=== PATIENT | female | born 1970 | race Caucasian/White ===

== ENCOUNTER → 2022-10-27 16:20 | Outpatient (CLI) | payer SELFPAY ==
--- NOTE | 2022-10-27 16:27 | XR_ITS ---
PROCEDURE INFORMATION: Exam: XR Left Foot Exam date and time: 10/27/2022 4:29 PM Age: 52 years old Clinical indication: Injury or trauma; Blunt trauma; Left; Injury date: 5 days ago; Injury details: Fall, pain and bruising top of lt foot; Additional info: L foot pain TECHNIQUE: Imaging protocol: Radiologic exam of the Left foot. Views: 3 or more views. COMPARISON: No relevant prior studies available. FINDINGS: Bones/joints: Bones appear intact and normally aligned with normal mineralization. Small plantar and Achilles calcaneal spurs. No acute fracture or dislocation. There are no lytic skeletal lesions seen. No significant arthritic deformities. Soft tissues: Slight soft tissue swelling.No radiopaque foreign bodies. No soft tissue emphysema. IMPRESSION: No acute fracture or dislocation.
== END ==
PROVIDERS: PCP Physician Assistant; Visit Provider Physician Assistant
DX: M79.672 Pain in left foot (principal)
CPT/HCPCS: 73630

== ENCOUNTER 2023-01-28 12:19 | Emergency (ER) | payer OTHER, SELFPAY ==
[2023-01-28 12:20] VITALS: BP 156/97; PULSE 78; RESP 18; TEMP 36.8; O2SAT 98; BMI 31.0
--- NOTE | 2023-01-28 12:32 | HMH.EDGENADL ---
Discharge Plan Disposition Patient Disposition: Home, Self-Care Prescriptions Prescriptions: No Action gabapentin 300 mg capsule 300 mg PO HS Qty: 30 2RF bupropion HCl 200 mg tablet sustained-release 12 hr PO Label Comments: TAKE 1 TABLET BY MOUTH ONCE DAILY IN THE MORNING lamotrigine 150 mg tablet 300 mg PO DAILY Label Comments: TAKE 2 TABLETS BY MOUTH ONCE DAILY Zyrtec 10 mg capsule 10 mg PO DAILY PRN aspirin 81 mg tablet,delayed release (DR/EC) 81 mg PO DAILY Nurtec ODT 75 mg tablet,disintegrating 75 mg PO Q OTHER DAY lorazepam 2 mg tablet 2 mg PO Label Comments: TAKE 1 & 1/2 (ONE & ONE-HALF) TABLETS BY MOUTH ONCE DAILY AT NIGHT AT BEDTIME naproxen 500 mg tablet 500 mg PO BID Qty: 60 2RF tramadol 50 mg tablet 50 mg PO BID PRN (Reason: pain) Qty: 20 0RF tizanidine [Zanaflex] 4 mg tablet 4 mg PO Q8H PRN (Reason: muscle spasticity) Qty: 90 0RF citalopram 40 mg tablet 40 mg PO DAILY Qty: 90 3RF Referrals Follow up/Referrals: Kylah Calzada PA [Primary Care Provider] - See instructions Activity Restrictions/Add. Instructions Additional Instructions/Restrictions: Please stop your NSAID. You may take Pepcid at home as discussed and additional antacids including Maalox or Tums. I suggest that you follow-up with a GI doctor for possible endoscopy to evaluate for peptic ulcers if your symptoms do not resolve. Please return to the emergency department worsening abdominal pain. Clinical Impressions Clinical Impression: Abdominal pain, epigastric, Gastroesophageal reflux disease Instructions Patient Instructions: DI for Acute Abdominal Pain Discharge ED Provider: Hiram Baugh [facility] Adult HPI General Chief complaint: Abdominal Pain Stated complaint: Abd pain nausea Time Seen by Provider: 01/28/23 12:32 History of Present Illness HPI narrative: Patient is a 53-year-old female presenting epigastric abdominal pain for the past few days. Patient states she has a history remotely of chronic alcoholism but has been sober for 9 years and has not had any recent drinks. No history of pancreatitis that she is aware of she still has her gallbladder. States her symptoms have been postprandial in nature making have decreased p.o. intake over the last few days. She currently has none of the squeezing type sensation that she has been feeling over the last few days. Denies any melena or hematochezia or hemoptysis. Denies any history of GERD or peptic ulcer disease. She did state that she has been taking an NSAID every day for the past several months due to chronic back pain. She currently feels nausea no other symptoms. Related Data Home Medications Medication Instructions Recorded Confirmed aspirin 81 mg tablet,delayed 81 mg PO DAILY 12/02/22 01/17/23 release bupropion HCl 200 mg tablet,12 hr ea PO 12/02/22 01/17/23 sustained-release cetirizine 10 mg capsule (Zyrtec) 10 mg PO DAILY PRN 12/02/22 01/17/23 lamotrigine 150 mg tablet 300 mg PO DAILY 12/02/22 01/17/23 lorazepam 2 mg tablet 2 mg PO 12/02/22 01/17/23 rimegepant 75 mg disintegrating 75 mg PO Q OTHER DAY 12/02/22 01/17/23 tablet (Nurtec ODT) Previous Rx's Medication Instructions Recorded naproxen 500 mg tablet 500 mg PO BID #60 tabs 12/02/22 tramadol 50 mg tablet 50 mg PO BID PRN pain #20 tabs 12/07/22 tizanidine 4 mg tablet (Zanaflex) 4 mg PO Q8H PRN muscle spasticity 12/13/22 #90 tabs gabapentin 300 mg capsule 300 mg PO HS #30 caps 12/20/22 citalopram 40 mg tablet 40 mg PO DAILY #90 tabs 12/23/22 Allergies Allergy/AdvReac Type Severity Reaction Status Date / Time No Known Allergies Allergy Verified 01/17/23 10:37 [facility] Disclaimer: The information contained in this section may have been updated after the patient was seen, as this information can be updated by other users. Medical History (Reviewed 01/17/23 @ 10:58 by Howard
[2023-01-28 12:54] LABS: Basophils # 0.1 K/mm3 (0-0.2); Eosinophils # 0.2 K/mm3 (0.0-0.4); Eosinophils % 4.2 % (0.1-12.0); Hematocrit 42.5 % (37.0-47.0); Hemoglobin 14.1 g/dL (12.2-16.2); Lymphocytes # 1.9 K/mm3 (0.7-4.5); Lymphocytes % 34.1 % (10-50); Mean Corpuscular HGB Conc 33.3 g/dL (31.8-35.4); Mean Corpuscular Hemoglobin 29.8 pg (27.0-31.2); Mean Corpuscular Volume 89.5 fl (81-99); Mean Platelet Volume 7.3 fl (7.4-10.4); Monocytes # 0.3 K/mm3 (0.1-1.0); Monocytes % 6.1 % (1.7-9.3); Neutrophils % 54.7 % (37.0-80.0); Platelet Count 273 K/mm3 (142-424); Red Blood Count 4.74 M/mm3 (4.20-5.40); White Blood Count 5.6 K/mm3 (4.8-10.8)
[2023-01-28 12:58] LABS: Chloride 103 mmol/L (98-107); Sodium 135 mmol/L (136-145)
[2023-01-28 12:59] LABS: Potassium 4.3 mmoL/L (3.5-5.1)
[2023-01-28 13:01] LABS: Alanine Aminotransferase 21 U/L (12-78); Alkaline Phosphatase 84 U/L (38-126); Anion Gap 6.3 mEq/L (5-15); Aspartate Amino Transferase 33 U/L (14-36); Bilirubin,Total 0.5 mg/dl (0.2-1.3); Blood Urea Nitrogen 6 mg/dl (7-17); Calcium 8.7 mg/dl (8.4-10.2); Carbon Dioxide 30 mmol/L (22.0-30.0); Creatinine Clearance Estimated 101 mL/min (50-200); Estimated Glomerular Filt Rate 65 ml/min (>60); GFR (African American) 79 ML/MIN (>60); Glucose 86 mg/dl (74-100); Lipase 81 U/L (23-300)
[2023-01-28 13:02] LABS: Albumin Level 4.3 g/dl (3.5-5.0); Albumin/Globulin Ratio 1.7 (1.1-1.8); Globulin 2.5 g/dL (1.3-3.2); Total Protein,Serum 6.8 g/dl (6.3-8.2)
[2023-01-28 13:34] VITALS: BP 126/89; PULSE 79; RESP 17; TEMP 36.8; O2SAT 96
== END 2023-01-28 13:45 | disposition home or self-care (01) ==
PROVIDERS: Emergency Provider Student in an Organized Health Care Education/Training Program; PCP Physician Assistant
DX: R10.13 Epigastric pain (principal); K21.9 Gastro-esophageal reflux disease without esophagitis; F41.9 Anxiety disorder, unspecified; F31.9 Bipolar disorder, unspecified; G43.909 Migraine, unspecified, not intractable, without status migrainosus; Z90.49 Acquired absence of other specified parts of digestive tract; Z90.710 Acquired absence of both cervix and uterus
CPT/HCPCS: 80053; 83690; 85025; 99284

== ENCOUNTER → 2023-02-01 09:43 | Outpatient (CLI) | payer OTHER, SELFPAY ==
--- NOTE | 2023-02-01 09:44 | MM_ITS ---
PROCEDURE INFORMATION: Exam: Bilateral Screening 3D Mammography Exam date and time: 02/01/2023 9:38 AM Age: 53 years old Clinical indication: Screening examination TECHNIQUE: Imaging protocol: Bilateral Screening tomosynthesis and 2D mammography including computer-aided detection (CAD) when performed. COMPARISON: DIGITAL MAMMOGRAM SCREEN, 3D (JORY) 07/31/2021 2:44 PM FINDINGS: MAMMOGRAPHY: Breast composition: The breasts are extremely dense, which lowers the sensitivity of mammography. Mass: None. Architectural distortion: None. Calcifications: No suspicious calcifications. Asymmetric density: None. Skin thickening: None. Axillary adenopathy: None. IMPRESSION: No mammographic evidence of malignancy. Annual screening is recommended unless otherwise clinically indicated. ASSESSMENT: BI-RADS Category 1: Negative
--- NOTE | 2023-02-01 09:44 | US_ITS ---
FINAL REPORT CLINICAL HISTORY: pelvic pain FINDINGS: Transvaginal sonographic images of the pelvis were obtained. The uterus is surgically absent. The right ovary measures 2.0 cm in length and left ovary measures 2.1 cm in length. Normal blood flow seen to the ovaries. Small cysts or follicles are present. There is no evidence of free fluid. IMPRESSION: Surgically absent uterus. Otherwise unremarkable exam. Reviewed, Interpreted and Dictated by Miguelangel Doe III, MD Transcribed by Gladis German Authenticated and [facility]
[2023-02-01 12:00] LABS: Basophils # 0.1 K/mm3 (0-0.2); Eosinophils # 0.2 K/mm3 (0.0-0.4); Eosinophils % 4.8 % (0.1-12.0); Hematocrit 45.3 % (37.0-47.0); Hemoglobin 14.6 g/dL (12.2-16.2); Lymphocytes # 1.6 K/mm3 (0.7-4.5); Lymphocytes % 32.3 % (10-50); Mean Corpuscular HGB Conc 32.4 g/dL (31.8-35.4); Mean Corpuscular Hemoglobin 29.1 pg (27.0-31.2); Mean Corpuscular Volume 89.9 fl (81-99); Mean Platelet Volume 7.5 fl (7.4-10.4); Monocytes # 0.3 K/mm3 (0.1-1.0); Monocytes % 5.1 % (1.7-9.3); Neutrophils # 2.8 K/mm3 (1.8-7.8); Neutrophils % 56.9 % (37.0-80.0); Platelet Count 290 K/mm3 (142-424); Red Blood Count 5.04 M/mm3 (4.20-5.40); Red Cell Distribution Width 13.1 % (11.5-17.5); White Blood Count 4.9 K/mm3 (4.8-10.8)
[2023-02-01 12:28] LABS: Hemoglobin A1C 4.8 % (4.0-6.0)
[2023-02-01 12:48] LABS: Chloride 105 mmol/L (98-107); Potassium 4.2 mmoL/L (3.5-5.1); Sodium 139 mmol/L (136-145)
[2023-02-01 12:50] LABS: Alanine Aminotransferase 20 U/L (12-78); Alkaline Phosphatase 74 U/L (38-126); Aspartate Amino Transferase 29 U/L (14-36); Bilirubin,Total 0.4 mg/dl (0.2-1.3); Blood Urea Nitrogen 7 mg/dl (7-17); Estimated Glomerular Filt Rate 75 ml/min (>60); GFR (African American) 90 ML/MIN (>60)
[2023-02-01 12:51] LABS: Albumin Level 4.4 g/dl (3.5-5.0); Anion Gap 8.2 mEq/L (5-15); Carbon Dioxide 30 mmol/L (22.0-30.0); Chol/HDL Ratio 3.4 (1-3.5); Cholesterol 218 mg/dl (140-200); Globulin 2.2 g/dL (1.3-3.2); Glucose 83 mg/dl (74-100); HDL Cholesterol 65 mg/dl (40-60); Total Protein,Serum 6.6 g/dl (6.3-8.2); Triglycerides 76 mg/dl (30-150); VLDL Cholesterol 15 mg/dL (0-40)
[2023-02-01 13:02] LABS: Direct LDL Cholesterol 119.86 mg/dL (100-129)
[2023-02-01 13:21] LABS: Thyroid Stimulating Hormone 1.06 uIU/mL (0.465-4.68)
[2023-02-10 00:03] LABS: 1,25 Dihydroxy Vitamin D 38 pg/mL (.); 1,25-Dihydroxy, Vitamin D-2 <10 pg/mL (.); 1,25-Dihydroxy, Vitamin D-3 36 pg/mL (.)
== END ==
PROVIDERS: PCP Physician Assistant; Visit Provider Obstetrics & Gynecology
DX: Z01.419 Encounter for gynecological examination (general) (routine) without abnormal findings (principal); Z12.31 Encounter for screening mammogram for malignant neoplasm of breast; R10.2 Pelvic and perineal pain; E66.9 Obesity, unspecified; Z68.31 Body mass index [BMI] 31.0-31.9, adult
CPT/HCPCS: 36415; 76830; 77063; 77067; 80053; 80061; 82652; 83036; 84443; 85025

== ENCOUNTER 2023-06-24 13:18 | Emergency (ER) | payer OTHER, SELFPAY ==
[2023-06-24 13:25] VITALS: BP 134/82; PULSE 91; RESP 18; TEMP 36.9; O2SAT 99; BMI 31.9
--- NOTE | 2023-06-24 13:37 | EXP.UTC ---
Discharge Plan Disposition Patient Disposition: Home, Self-Care Condition: Good Prescriptions Prescriptions: No Action Zyrtec 10 mg capsule 10 mg PO DAILY PRN Nurtec ODT 75 mg tablet,disintegrating 75 mg PO Q OTHER DAY lorazepam 2 mg tablet 2 mg PO Patient Comments: TAKE 1 & 1/2 (ONE & ONE-HALF) TABLETS BY MOUTH ONCE DAILY AT NIGHT AT BEDTIME citalopram 40 mg tablet 40 mg PO DAILY Qty: 90 3RF naproxen 500 mg tablet See Rx Instructions .ROUTE .COMPLEX Qty: 60 0RF Dose Instruction: Take 1 tablet by mouth twice daily Rx Instructions: Take 1 tablet by mouth twice daily bupropion HCl 200 mg tablet sustained-release 12 hr 200 mg PO DAILY Qty: 90 3RF lamotrigine 150 mg tablet 300 mg PO DAILY 90 Days Qty: 180 0RF gabapentin 300 mg capsule 300 mg PO HS Qty: 30 2RF Referrals Follow up/Referrals: Kylah Calzada PA [Primary Care Provider] - See instructions Activity Restrictions/Add. Instructions Additional Instructions/Restrictions: *Monitor Temp, Over the counter Motrin or Tylenol as directed/as needed Tylenol every 4 hours and Motrin every 6 hours (as long as your family doctor has told you that you can take it) for fever or pain. and straight to ER if unable to lower temp less than 101.0 after medication given *Warm salt water gargles may help to soothe the throat *Throat Lozenges? *Warm fluids like tea with honey may help to soothe the throat? *Sleep elevated *Humidifier/Vaporizer *Flonase 2 sprays in each nostril daily but be aware that it may take 2-3 days before you notice improvement Follow up IMMEDIATELY for new or worsening symptoms or no Noticeable improvement over the next 48-72 hours. 911 for difficulty breathing or swallowing Clinical Impressions Clinical Impression: Sinusitis Qualifiers: Sinusitis location: unspecified location Chronicity: unspecified Qualified Code(s): J32.9 - Chronic sinusitis, unspecified Instructions Patient Instructions: DI for Sinusitis, Sinusitis Discharge ED Provider: Amaris Mims [facility] General Stated complaint: ear ache Mode of Arrival: Ambulatory Source of Information: Patient Limitations: No Limitations Time Seen by Provider: 06/24/23 13:37 Description of Symptoms (Recalled from Triage Doc. by RN): PATIENT C/O BILATERAL EAR PAIN X 2 DAYS HEENT Symptoms (Recalled from RN notes): Yes Resp Symptoms (Recalled from RN notes): No Skin Symptoms (Recalled from RN notes): No MS Symptoms (Recalled from RN notes): No Functional Status (Recalled from RN notes): WNL History of Present Illness Provider Complaint: Patient states that she has been having sinus congestion and pressure for about a week but for the last couple of days she has been having pain and pressure in her ears States that she can feel the drainage in the back of her throat and at times she will blow it out and it is dark yellowish in color Related Data Home Medications Medication Instructions Recorded Confirmed cetirizine 10 mg capsule (Zyrtec) 10 mg PO DAILY PRN 12/02/22 04/19/23 lorazepam 2 mg tablet 2 mg PO 12/02/22 04/19/23 rimegepant 75 mg disintegrating 75 mg PO Q OTHER DAY 12/02/22 04/19/23 tablet (Nurtec ODT) Previous Rx's Medication Instructions Recorded citalopram 40 mg tablet 40 mg PO DAILY #90 tabs 12/23/22 naproxen 500 mg tablet See Rx Instructions .Route 02/17/23 .COMPLEX #60 tabs bupropion HCl 200 mg tablet,12 hr 200 mg PO DAILY #90 ea 03/15/23 sustained-release lamotrigine 150 mg tablet 300 mg PO DAILY 90 days #180 tabs 03/31/23 gabapentin 300 mg capsule 300 mg PO HS #30 caps 06/21/23 Allergies Allergy/AdvReac Type Severity Reaction Status Date / Time No Known Allergies Allergy Verified 04/19/23 13:19 Worker's Comp Is this a Worker's Comp case?: No [facility] Disclaimer: The information contained in this section may have been updated aft
[2023-06-24 13:46] VITALS: BP 134/82; PULSE 91; RESP 18; TEMP 36.9; O2SAT 99
== END 2023-06-24 13:49 | disposition home or self-care (01) ==
PROVIDERS: Emergency Provider Nurse Practitioner; PCP Physician Assistant
DX: J01.90 Acute sinusitis, unspecified (principal); H92.03 Otalgia, bilateral; F31.9 Bipolar disorder, unspecified; F41.9 Anxiety disorder, unspecified; G47.00 Insomnia, unspecified; D68.51 Activated protein C resistance
CPT/HCPCS: 99204; 99212; G0463

== ENCOUNTER → 2023-08-04 10:09 | Outpatient (POV) | payer OTHER, SELFPAY ==
[2023-08-04 10:57] VITALS: BP 137/89; PULSE 99; RESP 18; O2SAT 97; BMI 31.3
--- NOTE | 2023-08-04 12:31 | EXP.PAIN.OV ---
HPI Data of Consult Patient: new to practice Consult date: 08/04/23 Requesting Physician: Renee Tilley APRN Primary Care Provider: JULIO Davalos Consult Narrative Reason for consult: Low back pain, bilateral hip pain History of present illness: Ms. Reyes is a 53 year old female who presents today as a new patient. She is a referral from Kylah Calzada's office. Today she rates her pain an 8 out of 10. Patient states her pain is all in her low back and her bilateral hips. Patient's describes this as an aching, throbbing, sharp sensation that is worse with increased activity. Patient states that she did have a fall last October and that did not really have back pain issues prior to that. Patient does state that she did previously have hip pain and that the fall may have aggravated her symptoms. Patient states that she has been to a chiropractor for several months with minimal improvement. She has tried [id number] Tylenol and ibuprofen along with heat and ice and topicals with no additional relief. Patient denies any previous physical therapy. Patient denies any radiating symptoms into her legs. Patient has had updated MRI imaging of her lumbar spine. She does state that she will take naproxen and that seems to help some of her symptoms. She states the pain does interfere with her ability perform activities of daily living such as cooking and cleaning or even simple ambulation. Patient states that she loves to walk however this has been sick significantly impaired due to her pain. Patient is currently managed with gabapentin 300 mg daily from her primary care provider. Her Konstantin is [phone]. Is been reviewed and appropriate. CC: Renee Tilley APRN [facility] Disclaimer: The information contained in this section may have been updated after the patient was seen, as this information can be updated by other users. Medical History Anxiety Bipolar 1 disorder Fibrocystic disease of both breasts Heterozygous factor V Leiden mutation History of PCOS Insomnia Migraines Vasomotor symptoms due to menopause Surgical History H/O breast biopsy History of hysterectomy, supracervical abdominal (subtotal) Hx of tonsillectomy Family History Unknown Factor V Leiden mutation Pulmonary embolism Social History (Updated 08/04/23 @ 10:58 by Karen Nolasco RN) Smoking Status: Never smoker alcohol intake: former current occupational status: disabled Travel in the last 8 weeks: None Review of Systems Review of Systems Review of systems:: pertinent systems reviewed and negative unless documented below Review of systems (narrative): Low backReview of Systems: General: No recent weight changes, no fever, no sleep disturbances Respiratory: No cough, no shortness of air, no recurring pulmonary infections Cardiovascular/peripheral vascular: No chest pain, no palpitations, no edema, no shortness of breath Gastrointestinal: No new onset incontinence, normal bowel movements reported Genitourinary: No new onset incontinence Musculoskeletal: Pain, bilateral hip pain Psychiatric: [Normal mood/affect] Neurological: [Denies weakness in extremities], [denies balance issues] Meds Home Medications and Allergies Home Medications Medication Instructions Recorded Confirmed Type cetirizine 10 mg capsule (Zyrtec) 10 mg PO DAILY PRN ALLERGIES 12/02/22 08/04/23 History rimegepant 75 mg disintegrating 75 mg PO Q OTHER DAY MIGRAINES 12/02/22 08/04/23 History tablet (Nurtec ODT) bupropion HCl 200 mg tablet,12 hr 200 mg PO DAILY MOOD 08/04/23 08/04/23 History sustained-release citalopram 40 mg tablet 40 mg PO DAILY MOOD 08/04/23 08/04/23 History fluticasone propionate 50 1 spray intranasal DAILY ALLERGIES 08/04/23 08/04/23 History mcg/actuation nasal
== END ==
PROVIDERS: PCP Physician Assistant; Visit Provider Nurse Practitioner Family
DX: M51.36 Other intervertebral disc degeneration, lumbar region (principal); M54.50 Low back pain, unspecified; G89.29 Other chronic pain; M25.551 Pain in right hip; M25.552 Pain in left hip; M70.61 Trochanteric bursitis, right hip; M70.62 Trochanteric bursitis, left hip
CPT/HCPCS: 99202; G0463

== ENCOUNTER → 2023-08-04 11:09 | Outpatient (CLI) | payer OTHER, SELFPAY ==
--- NOTE | 2023-08-04 11:13 | XR_ITS ---
FINAL REPORT CLINICAL HISTORY: Right hip pain COMPARISON: None FINDINGS: RIGHT HIP Two views of the right hip and an AP view of the pelvis demonstrate no acute fracture or dislocation. The joint spaces appear normal. The visualized bony structures are well aligned. No soft tissue abnormality is seen. IMPRESSION: No acute bony abnormality. Reviewed, Interpreted and Dictated by Miguelangel Doe III, MD Transcribed by Irish Tomlin Authenticated and [facility]
--- NOTE | 2023-08-04 11:13 | XR_ITS ---
FINAL REPORT CLINICAL HISTORY: Left hip pain COMPARISON: None FINDINGS: LEFT HIP: Two views of the left hip and an AP view of the pelvis demonstrate no acute fracture or dislocation. The joint spaces appear normal. The visualized bony structures are well aligned. No soft tissue abnormality is seen. IMPRESSION: No acute bony abnormality. Reviewed, Interpreted and Dictated by Miguelangel Doe III, MD Transcribed by Irish Tomlin Authenticated and [facility]
== END ==
LOC: LAB 11:09 → RAD 11:10
PROVIDERS: PCP Physician Assistant; Visit Provider Nurse Practitioner Family
DX: M25.551 Pain in right hip (principal); M25.552 Pain in left hip
CPT/HCPCS: 73502

== ENCOUNTER 2023-08-16 10:14 | Day surgery (SDC) | payer OTHER, SELFPAY ==
[2023-08-16 10:34] VITALS: BP 143/84; PULSE 106; RESP 18; TEMP 36.8; O2SAT 96; BMI 31.3
--- NOTE | 2023-08-16 10:42 | P.PCN_ITS ---
Procedure Date: 08/16/23 Time: 10:35 Anesthesiologist:: Fran Ramos CRNA Complications:: None Pre-procedure Diagnosis:: Bilateral trochanteric bursitis. Post-procedure Diagnosis:: Same. Indications for Procedure:: This patient is a very pleasant 53-year-old female who comes our clinic today for bilateral trochanteric bursa injections. Patient complains of lateral hip pain bilaterally. She rates her pain 7/10. Patient has extreme point tenderness over the bilateral trochanteric bursa areas. Procedure Details:: Informed consent was obtained and the risks and benefits of the procedure were explained to the patient.~ The patient was taken to the procedure room and noninvasive monitors were placed including a noninvasive blood pressure cuff and pulse oximeter.~ The patient was placed supine on the procedure table. Both hips were cleansed using Betadine as a cleansing solution. C-arm fluoroscopy was used to view the right trochanteric bursa joint.~ The skin and subcutaneous tissues were anesthetized using lidocaine 1.5% and a 25-gauge needle.~ After this, a 22- gauge spinal needle was inserted under fluoroscopic guidance into the inferior aspect of the right trochanteric bursa.~ Omnipaque dye was injected and good spread was seen throughout the joint.~ After this, approximately 5 mL of bupivacaine, 0.25% and Depo-Medrol, 40 mg was incrementally injected into the right sacroiliac joint. We then moved to the left trochanteric bursa joint.~ The skin and subcutaneous tissues were anesthetized using lidocaine 1.5% and a 25-gauge needle.~ After this, a 22-gauge spinal needle was inserted under fluoroscopic guidance into the inferior aspect of the left trochanteric bursa joint.~ Omnipaque dye was injected and good spread was seen throughout the joint. After this, approximately 5 mL of bupivacaine, 0.25% and Depo-Medrol, 40 mg was incrementally injected into the left sacroiliac joint.~ The patient tolerated the procedure well with no complications. The patient was observed in the Pain Clinic and then was discharged home neurologically intact. Plan and Disposition:: Patient was discharged without incident.
[2023-08-16 10:51] VITALS: BP 137/89; PULSE 100; RESP 18; O2SAT 100
[2023-08-16 10:52] VITALS: BP 149/91; PULSE 94; RESP 16; O2SAT 96
[2023-08-16 10:54] VITALS: BP 137/89; PULSE 100; RESP 18; O2SAT 100
== END 2023-08-16 10:52 | disposition home or self-care (01) ==
PROVIDERS: PCP Physician Assistant; Visit Provider Nurse Anesthetist, Certified Registered
DX: M70.61 Trochanteric bursitis, right hip (principal); M70.62 Trochanteric bursitis, left hip
CPT/HCPCS: 20610; 77002; J1040

== ENCOUNTER → 2023-08-17 13:52 | Outpatient (CLI) | payer OTHER, SELFPAY ==
--- NOTE | 2023-08-17 13:54 | MR_ITS ---
FINAL REPORT CLINICAL HISTORY: BILATERAL HIP PAIN, BURSITIS FINDINGS: Multiplanar and multisequence imaging of the left hip were obtained without contrast. Bone marrow signal intensity is preserved. There is no acute fracture, contusion or pathologic marrow replacement. The joint spaces preserved. There is no evidence of AVN. The labrum is intact. No convincing labral tear is identified. There is a small amount of fluid adjacent to the greater trochanter most consistent with mild trochanteric bursitis. No tendon tear is identified. Remaining soft tissues are unremarkable. IMPRESSION: Mild greater trochanteric bursitis. Reviewed, Interpreted and Dictated by Erin Iyer MD Transcribed by Eveline Dupree Authenticated and . [facility]
--- NOTE | 2023-08-17 13:55 | MR_ITS ---
FINAL REPORT CLINICAL HISTORY: BILATERAL HIP PAIN, BURSITIS FINDINGS: Multiplanar and multisequence imaging of the right hip were obtained without contrast. There is a small subchondral cyst of the anterior femoral head. There is no acute fracture, contusion or pathologic marrow replacement. The joint spaces preserved. There is no evidence of AVN. The labrum is intact. No convincing labral tear is identified. There is a small amount of fluid adjacent to the greater trochanter most consistent with mild trochanteric bursitis. No tendon tear identified. Remaining soft tissues are unremarkable. IMPRESSION: Mild greater trochanteric bursitis. Reviewed, Interpreted and Dictated by Erin Iyer MD Transcribed by Eveline Dupree Authenticated and [facility]
== END ==
PROVIDERS: PCP Physician Assistant; Visit Provider Nurse Practitioner Family
DX: M25.551 Pain in right hip (principal); M25.552 Pain in left hip
CPT/HCPCS: 73721

== ENCOUNTER → 2023-09-07 10:53 | Outpatient (POV) | payer OTHER, SELFPAY ==
--- NOTE | 2023-09-07 11:04 | EXP.PAIN.SOA ---
[facility] Pain Management SOAP Note Subjective:: Patient is a pleasant 53-year-old female who presents today for MRI follow-up. We are currently treating the patient for degenerative disc disease of lumbar spine with lumbar radiculopathy symptoms, bilateral hip pain, greater trochanteric bursitis. Today she rates her pain a 6 out of 10. Patient denies any new trauma or injury. She denies any change in location or type of pain she experiences. She states that she has been doing more activity recently due to helping take care of her mom who had a knee replacement. She does state that yesterday she even cleaning 2 rooms in her house and so today she is experiencing more pain. Patient did previously have bursa injections that did provide significant relief however only temporary. Patient is currently managed with compounding cream and gabapentin 300 mg daily from an outside provider. Patient denies any side effects from this medication. Her Konstantin is [phone]. Its been reviewed and appropriate. Review of Systems: General: No recent weight changes, no fever, no sleep disturbances Respiratory: No cough, no shortness of air, no recurring pulmonary infections Cardiovascular/peripheral vascular: No chest pain, no palpitations, no edema, no shortness of breath Gastrointestinal: No new onset incontinence, normal bowel movements reported Genitourinary: No new onset incontinence Musculoskeletal: Bilateral hip pain Psychiatric: [Normal mood/affect] Neurological: [Denies weakness in extremities], [denies balance issues] Objective:: Physical Exam: General: Alert and oriented x3, no acute distress, pleasant and cooperative Lungs: Respirations even and unlabored, symmetrical chest expansion Eyes: PERRL Musculoskeletal: Flexion and extension of bilateral hips somewhat guarded secondary to pain, [antalgic gait noted] Neurological: Speech clear, no gross sensory deficit FINDINGS: Multiplanar and multisequence imaging of the right hip were obtained without contrast. There is a small subchondral cyst of the anterior femoral head. There is no acute fracture, contusion or pathologic marrow replacement. The joint spaces preserved. There is no evidence of AVN. The labrum is intact. No convincing labral tear is identified. There is a small amount of fluid adjacent to the greater trochanter most consistent with mild trochanteric bursitis. No tendon tear identified. Remaining soft tissues are unremarkable. IMPRESSION: Mild greater trochanteric bursitis. Reviewed, Interpreted and Dictated by Erin Iyer MD Transcribed by Eveline Dupree Authenticated and [facility] CLINICAL HISTORY: BILATERAL HIP PAIN, BURSITIS FINDINGS: Multiplanar and multisequence imaging of the left hip were obtained without contrast. Bone marrow signal intensity is preserved. There is no acute fracture, contusion or pathologic marrow replacement. The joint spaces preserved. There is no evidence of AVN. The labrum is intact. No convincing labral tear is identified. There is a small amount of fluid adjacent to the greater trochanter most consistent with mild trochanteric bursitis. No tendon tear is identified. Remaining soft tissues are unremarkable. IMPRESSION: Mild greater trochanteric bursitis. Reviewed, Interpreted and Dictated by Erin Iyer MD Transcribed by Eveline Dupree Authenticated and [facility] Assessment:: Degenerative disc disease of lumbar spine with lumbar radiculopathy symptoms, bilateral hip pain, greater trochanteric bursitis Plan:: Patient is experiencing more pain along her bilateral greater trochanteric bursa's with point tenderness noted. I have discussed with the patient that we will plan on repeating her prior injections. Risk and benefits were explained to the patient and she would like to proceed f
[2023-09-07 12:18] VITALS: BP 141/92; PULSE 95; RESP 18; O2SAT 96; BMI 31.3
== END | disposition home or self-care (01) ==
PROVIDERS: PCP Physician Assistant; Visit Provider Nurse Practitioner Family
DX: M51.16 Intervertebral disc disorders with radiculopathy, lumbar region (principal); M25.551 Pain in right hip; M25.552 Pain in left hip; M70.60 Trochanteric bursitis, unspecified hip
CPT/HCPCS: 99212; G0463

== ENCOUNTER 2023-09-20 09:35 | Day surgery (SDC) | payer OTHER, SELFPAY ==
[2023-09-20 09:51] VITALS: BP 135/79; PULSE 100; RESP 18; TEMP 36.2; O2SAT 98; BMI 31.0
[2023-09-20 10:01] VITALS: BP 149/68; PULSE 98; RESP 18; O2SAT 98
[2023-09-20 10:02] VITALS: BP 149/68; PULSE 98; RESP 18; O2SAT 98
--- NOTE | 2023-09-20 10:09 | P.PCN_ITS ---
Procedure Date: 09/20/23 Time: 09:55 Anesthesiologist:: Fran Ramos CRNA Complications:: None Pre-procedure Diagnosis:: Bilateral trochanteric bursitis. Post-procedure Diagnosis:: Same. Indications for Procedure:: Patient presents for bilateral trochanteric bursa injections. Patient has bilateral lateral hip pain she describes as constant, dull, aching. Patient has difficulty lying on left or right side. She has extreme point tenderness over the bilateral trochanteric bursa. She rates her pain 7/10. Procedure Details:: Informed consent was obtained and the risks and benefits of the procedure were explained to the patient.~ The patient was taken to the procedure room and noninvasive monitors were placed including a noninvasive blood pressure cuff and pulse oximeter.~ The patient was placed prone on the procedure table. Both hips were cleansed using Betadine as a cleansing solution. C-arm fluoroscopy was used to view the right trochanteric bursa joint.~ The skin and subcutaneous tissues were anesthetized using lidocaine 1.5% and a 25-gauge needle.~ After this, a 22- gauge spinal needle was inserted under fluoroscopic guidance into the inferior aspect of the right trochanteric bursa.~ Omnipaque dye was injected and good spread was seen throughout the joint.~ After this, approximately 5 mL of bupivacaine, 0.25% and Depo-Medrol, 40 mg was incrementally injected into the right sacroiliac joint. We then moved to the left trochanteric bursa joint.~ The skin and subcutaneous tissues were anesthetized using lidocaine 1.5% and a 25-gauge needle.~ After this, a 22-gauge spinal needle was inserted under fluoroscopic guidance into the inferior aspect of the left trochanteric bursa joint.~ Omnipaque dye was injected and good spread was seen throughout the joint. After this, approximately 5 mL of bupivacaine, 0.25% and Depo-Medrol, 40 mg was incrementally injected into the left sacroiliac joint.~ The patient tolerated the procedure well with no complications. The patient was observed in the Pain Clinic and then was discharged home neurologically intact. Plan and Disposition:: Patient was discharged without incident.
[2023-09-20 10:12] VITALS: BP 136/81; PULSE 92; RESP 18; O2SAT 98
== END 2023-09-20 10:12 | disposition home or self-care (01) ==
PROVIDERS: PCP Physician Assistant; Visit Provider Nurse Anesthetist, Certified Registered
DX: M70.61 Trochanteric bursitis, right hip (principal); M70.62 Trochanteric bursitis, left hip
CPT/HCPCS: 20610; 77002; J1040

== ENCOUNTER → 2023-09-22 12:11 | Outpatient (CLI) | payer OTHER, SELFPAY ==
[2023-09-22 13:51] LABS: Alanine Aminotransferase 24 U/L (12-78); Albumin Level 4.6 g/dl (3.5-5.0); Albumin/Globulin Ratio 1.6 (1.1-1.8); Alkaline Phosphatase 74 U/L (38-126); Anion Gap 11.6 mEq/L (5-15); Aspartate Amino Transferase 40 U/L (14-36); Bilirubin,Total 0.7 mg/dl (0.2-1.3); Blood Urea Nitrogen 9 mg/dl (7-17); Calcium 9.7 mg/dl (8.4-10.2); Carbon Dioxide 28 mmol/L (22.0-30.0); Chloride 104 mmol/L (98-107); Estimated Glomerular Filt Rate 87 ml/min (>60); GFR (African American) 106 ML/MIN (>60); Globulin 2.8 g/dL (1.3-3.2); Glucose 75 mg/dl (74-100); Potassium 4.6 mmoL/L (3.5-5.1); Sodium 139 mmol/L (136-145); Total Protein,Serum 7.4 g/dl (6.3-8.2)
== END ==
PROVIDERS: PCP Physician Assistant; Visit Provider Obstetrics & Gynecology
DX: N95.1 Menopausal and female climacteric states (principal)
CPT/HCPCS: 36415; 80053

== ENCOUNTER → 2023-10-06 11:13 | Outpatient (POV) | payer OTHER, SELFPAY ==
--- NOTE | 2023-10-06 11:44 | EXP.PAIN.SOA ---
[facility] Pain Management SOAP Note Subjective:: Patient is a pleasant 53-year-old female who presents today for follow-up of bilateral greater trochanteric bursa injections on 09/20/2023. We are currently treating the patient for degenerative disc disease of lumbar spine with lumbar radiculopathy symptoms, bilateral hip pain, greater trochanteric bursitis. Today she rates her pain a 5 out of 10. Patient states that she has had approximately 65% improvement following this injection however it only lasted approximately 1 week. Patient does states she is back to her baseline and that she did have a fall over the weekend that worsened her symptoms. Patient states that she had a sliver get hooked on one of her drawers causing her to fall onto her left hip and knee. Patient does state the pain is all in her low back and into both hips however the left is the worst side. Patient does state the pain interferes with her ability perform activities of daily living such as cooking and cleaning. Patient is currently managed with compounding cream and gabapentin 300 mg daily from an outside provider. Patient denies any side effects from this medication. Her Konstantin has been reviewed and is appropriate. Review of Systems: General: No recent weight changes, no fever, no sleep disturbances Respiratory: No cough, no shortness of air, no recurring pulmonary infections Cardiovascular/peripheral vascular: No chest pain, no palpitations, no edema, no shortness of breath Gastrointestinal: No new onset incontinence, normal bowel movements reported Genitourinary: No new onset incontinence Musculoskeletal: Low back pain, bilateral hip pain Psychiatric: [Normal mood/affect] Neurological: [Denies weakness in extremities], [denies balance issues] Objective:: Physical Exam: General: Alert and oriented x3, no acute distress, pleasant and cooperative Lungs: Respirations even and unlabored, symmetrical chest expansion Eyes: PERRL Musculoskeletal: Flexion and extension of lumbar [spine] somewhat guarded secondary to pain, [antalgic gait noted] point tenderness along bilateral SIs with positive bilateral Saad's, My's, Gaenslen's, compression and distraction exam Neurological: Speech clear, no gross sensory deficit Assessment:: Degenerative disc disease of lumbar spine with lumbar radiculopathy symptoms, bilateral hip pain, greater trochanteric bursitis, sacroiliitis Plan:: Patient is experiencing worsening pain in her low back and bilateral hips with limited range of motion. Patient had point tenderness along bilateral SIs and a positive bilateral Saad's, My's, Gaenslen's, compression and distraction exam. I have discussed with the patient that she may benefit from bilateral SI injections. Risk and benefits were discussed with patient and she would like to proceed forward with this plan of care. Patient will be scheduled for diagnostic bilateral SI injections under fluoroscopy. Patient has been instructed to contact the clinic with any concerns before the next appointment. Dr. Sandoval has reviewed this note and agrees with this plan of care. This note was dictated using voice recognition software and make contain errors or omissions. [facility] Disclaimer: The information contained in this section may have been updated after the patient was seen, as this information can be updated by other users. Medical History Anxiety Atrophy of vagina Bipolar 1 disorder Fibrocystic disease of both breasts Heterozygous factor V Leiden mutation History of PCOS Insomnia Migraines Vasomotor symptoms due to menopause Surgical History H/O breast biopsy History of hysterectomy, supracervical abdominal (subtotal) Hx of tonsillectomy Family History Unknown Factor V Leiden mutation Pulmonary embolism Social History (Reviewed 09/22
[2023-10-06 11:54] VITALS: BP 138/83; PULSE 98; RESP 18; O2SAT 97; BMI 31.3
== END ==
PROVIDERS: PCP Physician Assistant; Visit Provider Nurse Practitioner Family
DX: M51.16 Intervertebral disc disorders with radiculopathy, lumbar region (principal); M25.551 Pain in right hip; M25.552 Pain in left hip; M70.61 Trochanteric bursitis, right hip; M70.62 Trochanteric bursitis, left hip; M46.1 Sacroiliitis, not elsewhere classified
CPT/HCPCS: 99212; G0463

== ENCOUNTER 2023-11-01 08:00 | Day surgery (SDC) | payer OTHER, SELFPAY ==
[2023-11-01 08:27] VITALS: BP 130/80; PULSE 96; RESP 16; TEMP 36.4; O2SAT 98; BMI 31.3
[2023-11-01 08:34] VITALS: BP 146/100; PULSE 89; RESP 20; O2SAT 96
[2023-11-01 08:38] VITALS: BP 146/100; PULSE 91; O2SAT 96
[2023-11-01 08:44] VITALS: BP 129/84; PULSE 86; RESP 16; O2SAT 96
--- NOTE | 2023-11-01 08:49 | P.PCN_ITS ---
Procedure Date: 11/01/23 Time: 08:40 Anesthesiologist:: Fran Ramos CRNA Complications:: None Pre-procedure Diagnosis:: Bilateral sacroiliitis Post-procedure Diagnosis:: Same Indications for Procedure:: Patient is a very pleasant 53-year-old female comes our clinic today for bilateral sacroiliac joint injection. Patient has extreme point tenderness upon examination over the bilateral sacroiliac joints. Patient reports difficulty transitioning from sitting to standing. Patient has difficulty with ambulation. She rates her pain 7/10. Patient reports her pain centers around the bilateral posterior hip area as well as low lumbar. Procedure Details:: Procedure: Bilateral sacroiliac joint injections under fluoroscopy Informed consent was obtained and the risks and benefits of the procedure were explained to the patient.~ The patient was taken to the procedure room and noninvasive monitors were placed including a noninvasive blood pressure cuff and pulse oximeter.~ The patient was placed prone on the procedure table. Both hips were cleansed using Betadine as a cleansing solution. C-arm fluoroscopy was used to view the right sacroiliac joint.~ The skin and subcutaneous tissues were anesthetized using lidocaine 1.5% and a 25-gauge needle.~ After this, a 22-gauge spinal needle was inserted under fluoroscopic guidance into the inferior aspect of the right sacroiliac joint.~ Omnipaque dye was injected and good spread was s een throughout the joint.~ After this, approximately 5 mL of bupivacaine, 0.25% and Depo-Medrol, 40 mg was incrementally injected into the right sacroiliac joint. We then moved to the left sacroiliac joint.~ The skin and subcutaneous tissues were anesthetized using lidocaine 1.5% and a 25-gauge needle.~ After this, a 22- gauge spinal needle was inserted under fluoroscopic guidance into the inferior aspect of the left sacroiliac joint.~ Omnipaque dye was injected and good spread was seen throughout the joint. After this, approximately 5 mL of bupivacaine, 0.25% and Depo-Medrol, 40 mg was incrementally injected into the left sacroiliac joint.~ The patient tolerated the procedure well with no complications. The patient was observed in the Pain Clinic and then was discharged home neurologically intact. Plan and Disposition:: Patient was discharged without incident.
== END 2023-11-01 08:44 | disposition home or self-care (01) ==
PROVIDERS: PCP Physician Assistant; Visit Provider Nurse Anesthetist, Certified Registered
DX: M46.1 Sacroiliitis, not elsewhere classified (principal)
CPT/HCPCS: 27096; G0260; J1040

== ENCOUNTER → 2023-11-24 10:00 | Outpatient (POV) | payer OTHER, SELFPAY ==
[2023-11-24 10:20] VITALS: BP 123/84; PULSE 92; RESP 18; O2SAT 98; BMI 30.8
--- NOTE | 2023-11-24 10:40 | EXP.PAIN.SOA ---
[facility] Pain Management SOAP Note Subjective:: Patient is a pleasant 53-year-old female who presents today for follow-up of bilateral SI injections on 11/01/2023. We are currently treating the patient for degenerative disc disease of lumbar spine with lumbar radiculopathy symptoms, bilateral hip pain, greater trochanteric bursitis, bilateral sacroiliitis. Today she rates her pain a 4 out of 10. Patient denies any new trauma or injury. She does state that she has had at least 60% improvement following this injection however it only lasted approximately 2 weeks. Today she feels like she is back at her baseline. Patient does states she continues to have pain in her low back around her bilateral hips however the right side is better than the left. Patient does state that she has more pain into that the left hip and it does wake her up in the middle of the night due to the pain. Patient is currently managed with compounded cream and gabapentin 300 mg daily from an outside provider. Patient denies any side effects from these medications. She does also take naproxen 550 mg every 12 hours as needed. She is requesting a refill of this medication. Her Konstantin has been reviewed and is appropriate. Review of Systems: General: No recent weight changes, no fever, no sleep disturbances Respiratory: No cough, no shortness of air, no recurring pulmonary infections Cardiovascular/peripheral vascular: No chest pain, no palpitations, no edema, no shortness of breath Gastrointestinal: No new onset incontinence, normal bowel movements reported Genitourinary: No new onset incontinence Musculoskeletal: Low back pain, bilateral hip pain Psychiatric: [Normal mood/affect] Neurological: [Denies weakness in extremities], [denies balance issues] Objective:: Physical Exam: General: Alert and oriented x3, no acute distress, pleasant and cooperative Lungs: Respirations even and unlabored, symmetrical chest expansion Eyes: PERRL Musculoskeletal: Flexion and extension of lumbar [spine] somewhat guarded secondary to pain, [antalgic gait noted] point tenderness along bilateral greater trochanteric bursa's and left SI with positive left Saad's, My's, Gaenslen's, compression and distraction exam Neurological: Speech clear, no gross sensory deficit Assessment:: Degenerative disc disease of lumbar spine with lumbar radiculopathy symptoms, bilateral hip pain, trochanteric bursitis, chronic sacroiliitis Plan:: Patient is experiencing worsening pain along hips with positive point tenderness along her bilateral greater trochanteric bursa's. I have discussed with the patient that she may benefit from bilateral bursa injections. Risk and benefits were discussed with the patient and she would like to proceed forward with this plan of care. I have also discussed with patient that she may have had more improvement with her bilateral SI injections than thoughts due to the bursa pain overshadowing her previous injections. We will follow-up with this at her next visit. I have also discussed with the patient due to her chronic sacroiliitis that she may be a beneficial candidate for a SI stabilization procedure. Educational handouts were given during today's visit. And we will discuss this at future visits. I will refill the patient's naproxen 550 mg twice a day and provide a 3-month supply of this medication. Patient has been instructed to contact the clinic with any concerns before the next appointment. Dr. Sandoval has reviewed this note and agrees with this plan of care. This note was dictated using voice recognition software and make contain errors or omissions. [facility] Disclaimer: The information contained in this section may have been updated after the patient was seen, as this information can be updated by other users. Medical History Anxiety Atrophy of vagina Bipolar 1 disorder Fibrocystic disease of both breasts Heterozygous factor V Leiden mutation History of PCOS Insomnia Migraines Vasomotor symptoms due to menopause Surgical History H/O breast biopsy History of hysterectomy, supracervical abdominal (subtotal) Hx of tonsillectomy Family History Unknown Factor V Leiden mutation Pulmonary embolism Social History Smoking Status: Current every day smoker tobacco type: cigarettes alcohol intake: former substance use type: denies use current occupational status: disabled Travel in the last 8 weeks: None
== END | disposition home or self-care (01) ==
PROVIDERS: PCP Physician Assistant; Visit Provider Nurse Practitioner Family
DX: M51.16 Intervertebral disc disorders with radiculopathy, lumbar region (principal); M25.551 Pain in right hip; M25.552 Pain in left hip; M70.60 Trochanteric bursitis, unspecified hip; M46.1 Sacroiliitis, not elsewhere classified
CPT/HCPCS: 99212; G0463

== ENCOUNTER 2023-12-13 08:35 | Day surgery (SDC) | payer OTHER, SELFPAY ==
[2023-12-13 08:55] VITALS: BP 150/92; PULSE 93; RESP 16; TEMP 36.5; O2SAT 98; BMI 30.5
[2023-12-13 09:02] VITALS: BP 148/93; PULSE 84; RESP 18; RESP 19; O2SAT 97; O2SAT 98
[2023-12-13] MEDS: BUPIVACAINE 0.25% 10ML INJ 25 MG IJ (09:02)
[2023-12-13] MEDS: methylPREDNISolone ACETATE 80MG/ML VIAL 80 MG (09:02)
[2023-12-13] MEDS: LIDOCAINE 1% 5ML PF VIAL 5 ML (09:02)
[2023-12-13 09:10] VITALS: BP 154/95; PULSE 89; RESP 16; O2SAT 98
--- NOTE | 2023-12-13 09:14 | P.PCN_ITS ---
Procedure Date: 12/13/23 Time: 09:10 Anesthesiologist:: Fran Ramos CRNA Complications:: None Pre-procedure Diagnosis:: Bilateral trochanteric bursitis. Post-procedure Diagnosis:: Same. Indications for Procedure:: Patient is a pleasant 53-year-old female comes our clinic today for bilateral trochanteric bursa injection. Patient has responded very well to this injection in the past. Patient reports bilateral lateral hip pain she describes as constant, dull, sharp, stabbing. Patient having difficulty lying in bed on either side. She rates her pain 7/10. Procedure Details:: Procedure: Bilateral trochanteric bursa joint injections under fluoroscopy Informed consent was obtained and the risks and benefits of the procedure were explained to the patient.~ The patient was taken to the procedure room and noninvasive monitors were placed including a noninvasive blood pressure cuff and pulse oximeter.~ The patient was placed prone on the procedure table. Both hips were cleansed using Betadine as a cleansing solution. C-arm fluoroscopy was used to view the right trochanteric bursa joint.~ The skin and subcutaneous tissues were anesthetized using lidocaine 1.5% and a 25-gauge needle.~ After this, a 22- gauge spinal needle was inserted under fluoroscopic guidance into the inferior aspect of the right trochanteric bursa.~ Omnipaque dye was injected and good spread was seen throughout the joint.~ After this, approximately 5 mL of bupivacaine, 0.25% and Depo-Medrol, 40 mg was incrementally injected into the right sacroiliac joint. We then moved to the left trochanteric bursa joint.~ The skin and subcutaneous tissues were anesthetized using lidocaine 1.5% and a 25-gauge needle.~ After this, a 22-gauge spinal needle was inserted under fluoroscopic guidance into the inferior aspect of the left trochanteric bursa joint.~ Omnipaque dye was injected and good spread was seen throughout the joint. After this, approximately 5 mL of bupivacaine, 0.25% and Depo-Medrol, 40 mg was incrementally injected into the left sacroiliac joint.~ The patient tolerated the procedure well with no complications. The patient was observed in the Pain Clinic and then was discharged home neurologically intact. Plan and Disposition:: Patient was discharged out incident.
== END 2023-12-13 09:10 | disposition home or self-care (01) ==
PROVIDERS: PCP Physician Assistant; Visit Provider Nurse Anesthetist, Certified Registered
DX: M70.61 Trochanteric bursitis, right hip (principal); M70.62 Trochanteric bursitis, left hip
CPT/HCPCS: 20610; 77002; J1040

== ENCOUNTER → 2024-01-04 09:53 | Outpatient (POV) | payer OTHER, SELFPAY ==
--- NOTE | 2024-01-04 09:55 | EXP.PAIN.SOA ---
[facility] Pain Management SOAP Note Subjective:: Patient is a pleasant 53-year-old female who presents today for follow-up of bilateral greater trochanteric bursa injections on 12/13/2023.We are currently treating the patient for degenerative disc disease of lumbar spine with lumbar radiculopathy symptoms, bilateral hip pain, greater trochanteric bursitis, bilateral sacroiliitis. Today she rates her pain a 2 out of 10. Patient denies any new trauma or injury. She states she has had at least 90% improvement following these injections and feels like there is still continuing to provide additional relief. Patient states she has been able to increase her activity with decreased pain symptoms and feels overall more functional. Patient is currently managed with gabapentin 300 mg daily and lorazepam 2 mg from an outside provider. Patient denies any side effects from these medications. She is prescribed naproxen 550 mg twice a day and compounded cream from our office. She denies any side effects from these medications. Her Konstantin has been reviewed and is appropriate. Review of Systems: General: No recent weight changes, no fever, no sleep disturbances Respiratory: No cough, no shortness of air, no recurring pulmonary infections Cardiovascular/peripheral vascular: No chest pain, no palpitations, no edema, no shortness of breath Gastrointestinal: No new onset incontinence, normal bowel movements reported Genitourinary: No new onset incontinence Musculoskeletal: Low back pain Psychiatric: [Normal mood/affect] Neurological: [Denies weakness in extremities], [denies balance issues] Objective:: Physical Exam: General: Alert and oriented x3, no acute distress, pleasant and cooperative Lungs: Respirations even and unlabored, symmetrical chest expansion Eyes: PERRL Musculoskeletal: Flexion and extension of lumbar [spine] somewhat guarded secondary to pain, [antalgic gait noted] Neurological: Speech clear, no gross sensory deficit Assessment:: Degenerative disc disease of lumbar spine with lumbar radiculopathy symptoms, bilateral hip pain, greater trochanteric bursitis, sacroiliitis Plan:: Patient has had significant improvement following her bilateral greater trochanteric bursa injections and does not require any additional injection therapy at this time. Patient will return to clinic in 1 month for reevaluation of symptoms and plan of care. Patient has been instructed to contact the clinic with any concerns before the next appointment. Dr. Sandoval has reviewed this note and agrees with this plan of care. This note was dictated using voice recognition software and make contain errors or omissions. [facility] Disclaimer: The information contained in this section may have been updated after the patient was seen, as this information can be updated by other users. Medical History (Updated 01/03/24 @ 11:17 by Gypsy Ralph) Anxiety Atrophy of vagina Bipolar 1 disorder Fibrocystic disease of both breasts Heterozygous factor V Leiden mutation History of PCOS Hx of LEEP (loop electrosurgical excision procedure) of cervix complicating Insomnia Migraines Nicotine dependence Vasomotor symptoms due to menopause Surgical History H/O breast biopsy History of hysterectomy, supracervical abdominal (subtotal) Hx of tonsillectomy Family History Unknown Factor V Leiden mutation Pulmonary embolism Social History Smoking Status: Current every day smoker tobacco type: cigarettes alcohol intake: former substance use type: denies use current occupational status: disabled Travel in the last 8 weeks: None
[2024-01-04 10:21] VITALS: BP 126/81; PULSE 106; RESP 18; O2SAT 96; BMI 30.5
== END ==
LOC: SC.PAIN 09:53
PROVIDERS: PCP Physician Assistant; Visit Provider Nurse Practitioner Family
DX: M51.16 Intervertebral disc disorders with radiculopathy, lumbar region (principal); M25.551 Pain in right hip; M25.552 Pain in left hip; M70.61 Trochanteric bursitis, right hip; M46.1 Sacroiliitis, not elsewhere classified; M70.62 Trochanteric bursitis, left hip
CPT/HCPCS: 99212; G0463

== ENCOUNTER 2024-02-01 15:12 | Outpatient (CLI) | payer OTHER, SELFPAY ==
--- NOTE | 2024-02-01 15:13 | CT_ITS ---
FINAL REPORT TECHNIQUE: Thin section axial images were obtained from the lung apices to the upper abdomen by computed tomography. Reformatted images were obtained and reviewed. This study was performed with techniques to keep radiation doses al low as reasonably achievable (ALARA). Individualized dose reduction techniques using automated exposure control or adjustment of mA and/or kV according to the patient's size were employed. CLINICAL HISTORY: lung cancer screening Current smoker. Patient has smoked for 30 years. COMPARISON: None FINDINGS: CHEST CT LOW DOSE 54-year-old female, current smoker, 30+ pack year history. CTDI vol (mGy): 2.9 DLP (mGy-cm): 96.38 There is no axillary adenopathy. There is no mediastinal or hilar mass or adenopathy. The heart is normal in size. There is no pericardial or pleural effusion. There is mild pulmonary scarring or atelectasis. Lung window images demonstrate a 3 mm lateral right upper lobe nodule best seen on image #38. There is also a 4 mm lateral right lower lobe nodule seen best on image #53.. Limited images of the upper abdomen are unremarkable. IMPRESSION: Lung-RADS category 2. Recommend 12 month follow up low dose chest CT. Reviewed, Interpreted and Dictated by Miguelangel Doe III, MD Transcribed by Nahomi Moulton Authenticated and [facility]
== END 2024-02-01 23:59 ==
LOC: RAD 15:13
PROVIDERS: PCP Physician Assistant; Visit Provider Physician Assistant
DX: Z12.2 Encounter for screening for malignant neoplasm of respiratory organs (principal); F17.210 Nicotine dependence, cigarettes, uncomplicated
CPT/HCPCS: 71271

== ENCOUNTER 2024-02-03 09:41 | Outpatient (POV) | payer OTHER, SELFPAY ==
--- NOTE | 2024-02-03 09:50 | EXP.PAIN.SOA ---
[facility] Pain Management SOAP Note Subjective:: Patient is a pleasant 54-year-old female who presents today for 1 month follow-up. Today she rates her pain a 2 out of 10. Patient states that she is still continue to get good relief from her greater trochanteric bursa injections bilaterally on 12/13/2023. Patient states that she has not even had to use her naproxen or her compounding cream due to the decrease in pain. Patient does states she is overall more functional. Her Konstantin has been reviewed and is appropriate Review of Systems: General: No recent weight changes, no fever, no sleep disturbances Respiratory: No cough, no shortness of air, no recurring pulmonary infections Cardiovascular/peripheral vascular: No chest pain, no palpitations, no edema, no shortness of breath Gastrointestinal: No new onset incontinence, normal bowel movements reported Genitourinary: No new onset incontinence Musculoskeletal: Low back pain Psychiatric: [Normal mood/affect] Neurological: [Denies weakness in extremities], [denies balance issues] Objective:: Physical Exam: General: Alert and oriented x3, no acute distress, pleasant and cooperative Lungs: Respirations even and unlabored, symmetrical chest expansion Eyes: PERRL Musculoskeletal: Flexion and extension of lumbar [spine] somewhat guarded secondary to pain Neurological: Speech clear, no gross sensory deficit Assessment:: Degenerative disc disease of lumbar spine with lumbar radiculopathy symptoms, greater trochanteric bursitis bilaterally, bilateral sacroiliitis Plan:: Patient continues to do well from her bursa injections from November and does not require any additional injection therapy. Patient will return to clinic in 3 months for reevaluation of symptoms and plan of care. Patient has been instructed to contact the clinic with any concerns before the next appointment. Dr. Sandoval has reviewed this note and agrees with this plan of care. This note was dictated using voice recognition software and make contain errors or omissions. [facility] Disclaimer: The information contained in this section may have been updated after the patient was seen, as this information can be updated by other users. Medical History (Updated 01/03/24 @ 11:17 by Gypsy Ralph) Hx of LEEP (loop electrosurgical excision procedure) of cervix complicating Nicotine dependence Atrophy of vagina Heterozygous factor V Leiden mutation Vasomotor symptoms due to menopause Fibrocystic disease of both breasts History of PCOS Bipolar 1 disorder Insomnia Anxiety Migraines Surgical History History of hysterectomy, supracervical abdominal (subtotal) Hx of tonsillectomy H/O breast biopsy Family History Unknown Factor V Leiden mutation Pulmonary embolism Social History Smoking Status: Current every day smoker tobacco type: cigarettes alcohol intake: former substance use type: denies use current occupational status: disabled Travel in the last 8 weeks: None
[2024-02-03 09:51] VITALS: BP 139/89; PULSE 98; RESP 18; O2SAT 96; BMI 31.3
== END 2024-02-03 23:59 ==
LOC: SC.PAIN 09:42
PROVIDERS: PCP Physician Assistant; Visit Provider Nurse Practitioner Family
DX: M51.16 Intervertebral disc disorders with radiculopathy, lumbar region (principal); M70.61 Trochanteric bursitis, right hip; M70.62 Trochanteric bursitis, left hip; M46.1 Sacroiliitis, not elsewhere classified
CPT/HCPCS: 99212; G0463

== ENCOUNTER 2024-02-03 09:52 | Outpatient (CLI) | payer OTHER, SELFPAY ==
--- NOTE | 2024-02-03 09:53 | MM_ITS ---
PROCEDURE INFORMATION: Exam: MG Bilateral Screening 3D Mammography Exam date and time: 02/03/2024 10:02 AM Age: 54 years old Clinical indication: Screening mammogram TECHNIQUE: Imaging protocol: Bilateral Screening tomosynthesis and 2D mammography including computer-aided detection (CAD) when performed. COMPARISON: 1. MG MM DIG SCREENING MAMM BI W/CAD 02/01/2023 9:38 AM 2. MG DIGITAL MAMMOGRAM SCREEN, 3D (JORY) 07/31/2021 2:44 PM 3. MG DIGITAL MAMMOGRAM LEFT 09/28/2019 11:01 AM FINDINGS: MAMMOGRAPHY: Breast composition: The breast is heterogeneously dense, which may obscure small masses. Mass: None. Architectural distortion: No new or suspicious architectural distortion. Calcifications: No new or suspicious calcifications are present Asymmetric density: No new or suspicious asymmetric density is present Skin thickening: None. Axillary adenopathy: None. IMPRESSION: No mammographic evidence of malignancy. Recommend annual screening mammography unless otherwise clinically indicated. ASSESSMENT: BI-RADS category 1: Negative.
== END 2024-02-03 23:59 ==
LOC: RAD 09:53
PROVIDERS: PCP Physician Assistant; Visit Provider Obstetrics & Gynecology
DX: Z12.31 Encounter for screening mammogram for malignant neoplasm of breast (principal)
CPT/HCPCS: 77063; 77067

== ENCOUNTER → 2024-02-29 10:22 | Outpatient (CLI) | payer OTHER, SELFPAY | PROVIDERS: PCP Physician Assistant; Visit Provider Physician Assistant | DX: G47.33 Obstructive sleep apnea (adult) (pediatric) (principal); G47.36 Sleep related hypoventilation in conditions classified elsewhere | CPT/HCPCS: G0399 ==

== ENCOUNTER 2024-03-26 09:41 | Outpatient (CLI) | payer OTHER, SELFPAY ==
[2024-03-26] MEDS: ALBUTEROL 0.083% 2.5 MG/3 ML NEB IH (10:26)
--- NOTE | 2024-03-26 10:27 | PC.NURSE ---
PFT and 6 Minute Walk Test completed without incident. Albuterol 0.083% given via HHN, per written protocol, Pt tolerated tx well.
== END 2024-03-26 23:59 | disposition home or self-care (01) ==
LOC: RT 09:41
PROVIDERS: PCP Physician Assistant; Visit Provider Specialist
DX: G47.33 Obstructive sleep apnea (adult) (pediatric) (principal); G47.34 Idiopathic sleep related nonobstructive alveolar hypoventilation; F17.210 Nicotine dependence, cigarettes, uncomplicated
CPT/HCPCS: 94060; 94618; 94726; 94729

== ENCOUNTER 2024-04-10 07:32 | Day surgery (SDC) | payer OTHER, SELFPAY ==
[2024-04-09 09:56] VITALS: BMI 30.5
[2024-04-10] VITALS (7 sets, daily range): BP systolic 118–142; BP diastolic 71–84; PULSE 76–84; RESP 16–18; TEMP 37.1; O2SAT 96–99; BMI 30.5
--- NOTE | 2024-04-10 07:51 | EXP.ANES.CKL ---
[facility] Disclaimer: The information contained in this section may have been updated after the patient was seen, as this information can be updated by other users. Medical History Tobacco abuse Nocturnal hypoxemia JESS (obstructive sleep apnea) Hx of LEEP (loop electrosurgical excision procedure) of cervix complicating Nicotine dependence Atrophy of vagina Heterozygous factor V Leiden mutation Vasomotor symptoms due to menopause Fibrocystic disease of both breasts History of PCOS Bipolar 1 disorder Insomnia Anxiety Migraines Surgical History History of hysterectomy, supracervical abdominal (subtotal) Hx of tonsillectomy H/O breast biopsy Family History Unknown Factor V Leiden mutation Pulmonary embolism Social History Smoking Status: Current every day smoker tobacco type: cigarettes alcohol intake: former substance use type: denies use current occupational status: disabled Travel in the last 8 weeks: None [facility] Anesthesia Checklist Patient Identification Patient Identification: Arm Band and Verbal (Name & ) Structural Data Admitted From: Home Planned Operative Procedure/s: Colonoscopy Consent for Planned Operative Procedure(s) Verified: Yes Verified Documents: Surgical Consent NPO Status Verified Time NPO: 00:00 Additional verifications Anesthesia Reactions: No Hx Blood Transfusions: No Blood Transfusion Reaction: No Airway Assessment Mallampati Score:: Class III C-Spine Mobility Assessed: Yes TMJ Mobility Assessed: Yes Dentition: Good Dentition Neurological Assessment Level of Consciousness: Awake Hx Seizures: No Numbness or tingling in extremities: No Anesthesia Plan Anesthesia Risk discussed: Yes Anesthesia Plan: Verified ASA Class: III Anesthesia Type: MAC
[2024-04-10] MEDS: LACTATED RINGERS 1000ML 1,000 ML 100 ML IV (07:54)
--- NOTE | 2024-04-10 07:57 | P.PCN_ITS ---
Procedure: Date: 04/10/24 Patient Date of :: 1970 Procedure Performed:: Colonoscopy with polypectomy Indications:: History of colon polyps Performing Provider:: Sagar Durham MD Referring Provider:: . Sedation:: Monitored anesthesia care Procedure:: After informed consent was obtained the patient was taken to the endoscopy suite. Sedation ensued after the patient was transferred to the left lateral d ecubitus position. Pulse, blood pressure, and oxygen saturation were monitored throughout the procedure. Digital rectal exam revealed no significant abnormality. The colonoscope was placed in position. The entire colon was evaluated. The colonoscope was carefully removed and the patient was transferred to recovery in stable condition. Please see findings and specimens below for detail. Findings:: Bowel preparation moderate Poor relaxation Profound sigmoid tortuosity Fairly severe spasticity throughout (worse in sigmoid) Distal right colon/hepatic flexure polyp Specimens:: Distal right colon/hepatic flexure polyp (cold snare) Recommendations:: Timing of repeat colonoscopy is pending pathology will likely be around 3 years with extended bowel preparation secondary to moderate preparation, lack of relaxation, and spasticity. Consider barium enema in near future secondary to spasticity/lack of relaxation. Complications:: No immediate Estimated blood obtained (mL): 1 Colonoscopy Component Colonoscopy Component Was a colonoscopy performed during today's procedure?: Yes Recommended follow up colonoscopy of at least 10 years?: No If no, follow up colonoscopy recommended in ___ years?: (See above) Reason for not recommending >/= 10 yr follow-up interval?: (See above)
--- NOTE | 2024-04-10 08:56 | EXP.ANES.I ---
[facility] Anesthesia Record Part I Anesthesia Record I Intake, IV Amount: 500 Hydration: Adequate Estimated blood loss (mL): 1 Urine output (mL): 0 Blood Products used (#): none Blood Pressure: 118/72 SaO2: 96 Pulse Rate: 79 Airway Patency: Patent Respiratory Rate: 16 Temperature: 98.7 F Patient is:: Awake (Talking) and Stable Stable to PACU at:: 08:56
== END 2024-04-10 09:21 | disposition home or self-care (01) ==
PROVIDERS: PCP Physician Assistant; Visit Provider Surgery
PROC: 0DJD8ZZ Inspection of Lower Intestinal Tract, Via Natural or Artificial Opening Endoscopic (ICD-10-PCS; CPT 45378; principal; 2024-04-10 08:30)
DX: Z12.11 Encounter for screening for malignant neoplasm of colon (principal); Z86.010 Personal history of colon polyps; K56.2 Volvulus; D12.2 Benign neoplasm of ascending colon; D12.3 Benign neoplasm of transverse colon
CPT/HCPCS: 45385

== ENCOUNTER 2024-06-25 08:04 | Outpatient (CLI) | payer OTHER, SELFPAY ==
--- NOTE | 2024-06-25 08:04 | FL_ITS ---
FINAL REPORT CLINICAL HISTORY: torsion colon 302.88 mGy 2:27 fluoro FINDINGS: BARIUM ENEMA HISTORY: Incomplete colonoscopy. PROCEDURE: Barium contrast was instilled into the patient's colon via a rectal tube, using gravity drip. Spot and overhead films were performed. A total of 38 images were saved. FINDINGS: Leak Gang Supervisor film is unremarkable. There are a few diverticula identified in the sigmoid colon. There are no constricting or obstructing lesions identified to the level of the cecum. The patient has an incompetenet ileocecal valve. FLUOROSCOPY TIME: 2 minutes 27 seconds Radiation exposure in Reference air Kerma: 302.88 mGy IMPRESSION: No constricting or obstructing lesions of the visualized colon. Few diverticula in the sigmoid colon. Reviewed, Interpreted and Dictated by Miguelangel Doe III, MD Transcribed by Flor Gasca PA-C Authenticated and [facility]
[2024-06-25] MEDS: BARIUM SULFATE(E-Z-AC);750ML BOTTLE 750 ML RC ×2 (08:58)
== END 2024-06-25 23:59 | disposition home or self-care (01) ==
LOC: RAD 08:04
PROVIDERS: PCP Physician Assistant; Visit Provider Surgery
DX: K56.2 Volvulus (principal)
CPT/HCPCS: 74270

== ENCOUNTER 2024-07-05 15:15 | Outpatient (CLI) | payer OTHER, SELFPAY ==
[2024-07-05 17:28] LABS: Basophils % 0.5 % (0.1-2.0); Eosinophils # 0.1 K/mm3 (0.0-0.4); Eosinophils % 2.8 % (0.1-12.0); Hematocrit 43.2 % (37.0-47.0); Hemoglobin 13.7 g/dL (12.2-16.2); Lymphocytes # 1.5 K/mm3 (0.7-4.5); Lymphocytes % 34.6 % (10-50); Mean Corpuscular HGB Conc 31.8 g/dL (31.8-35.4); Mean Corpuscular Hemoglobin 29.7 pg (27.0-31.2); Mean Corpuscular Volume 93.6 fl (81-99); Mean Platelet Volume 7.7 fl (7.4-10.4); Monocytes # 0.3 K/mm3 (0.1-1.0); Monocytes % 6.7 % (1.7-9.3); Neutrophils # 2.4 K/mm3 (1.8-7.8); Neutrophils % 55.3 % (37.0-80.0); Platelet Count 279 K/mm3 (142-424); Red Blood Count 4.61 M/mm3 (4.20-5.40); Red Cell Distribution Width 13.4 % (11.5-17.5); White Blood Count 4.3 K/mm3 (4.8-10.8)
[2024-07-05 18:12] LABS: Alanine Aminotransferase 20 U/L (12-78); Albumin Level 4.1 g/dl (3.5-5.0); Albumin/Globulin Ratio 1.6 (1.1-1.8); Alkaline Phosphatase 90 U/L (38-126); Anion Gap 8.3 mEq/L (5-15); Aspartate Amino Transferase 30 U/L (14-36); Bilirubin,Total 0.5 mg/dl (0.2-1.3); Blood Urea Nitrogen 5 mg/dl (7-17); Calcium 9.4 mg/dl (8.4-10.2); Carbon Dioxide 27 mmol/L (22.0-30.0); Chloride 108 mmol/L (98-107); Cholesterol 251 mg/dl (140-200); Estimated Glomerular Filt Rate 87 ml/min (>60); GFR (African American) 105 ML/MIN (>60); Globulin 2.6 g/dL (1.3-3.2); Glucose 75 mg/dl (74-100); HDL Cholesterol 62 mg/dl (40-60); Potassium 4.3 mmoL/L (3.5-5.1); Sodium 139 mmol/L (136-145); Total Protein,Serum 6.7 g/dl (6.3-8.2); Triglycerides 97 mg/dl (30-150); VLDL Cholesterol 19 mg/dL (0-40)
[2024-07-05 18:24] LABS: 25-OH Vitamin D, Total 42.2 ng/mL (30-100)
[2024-07-05 18:37] LABS: Thyroid Stimulating Hormone 0.78 uIU/mL (0.465-4.68)
== END 2024-07-05 23:59 | disposition home or self-care (01) ==
LOC: LAB.DROPOF 07-07 17:26
PROVIDERS: PCP Physician Assistant; Visit Provider Physician Assistant
DX: I10 Essential (primary) hypertension (principal); E66.9 Obesity, unspecified; Z68.30 Body mass index [BMI] 30.0-30.9, adult; F17.210 Nicotine dependence, cigarettes, uncomplicated
CPT/HCPCS: 80050; 80053; 80061; 82306; 84443; 85025

== ENCOUNTER 2024-07-11 13:23 | Outpatient (CLI) | payer OTHER, SELFPAY | END 2024-07-11 23:59 | disposition home or self-care (01) | LOC: RT 13:24 | PROVIDERS: PCP Physician Assistant; Visit Provider Internal Medicine Pulmonary Disease | DX: R06.02 Shortness of breath (principal); G47.34 Idiopathic sleep related nonobstructive alveolar hypoventilation | CPT/HCPCS: 94762 ==

== ENCOUNTER 2024-08-03 08:08 | Day surgery (SDC) | payer OTHER, SELFPAY ==
[2024-08-02 12:00] VITALS: BMI 29.6
[2024-08-03 08:22] VITALS: BP 155/88; PULSE 108; RESP 18; TEMP 36.7; O2SAT 97
[2024-08-03] MEDS: LIDOCAINE 1% 20ML MDV 20 ML (09:52)
[2024-08-03 10:07] VITALS: BP 139/80; PULSE 87; RESP 16; TEMP 36.2; O2SAT 95
--- NOTE | 2024-08-03 10:09 | EXP.OP.NOTE ---
Date of procedure: 08/03/24 Pre-op Diagnosis:: Left upper extremity lipoma (1.5 cm) Left upper extremity lipoma (1 cm) Post-op Diagnosis:: Same Procedure performed:: Excision of 1.5 cm and 1 cm left upper extremity lipomas Surgeon:: Sagar Durham MD Anesthesia: local Estimated blood loss (mL): 5 Operative findings:: Subcutaneous lipomas excised in toto Operative note:: After informed consent was obtained the patient was taken to the procedure room. Her left forearm was prepped and draped in a sterile fashion. After infiltration with local anesthetic an incision was made overlying the 1.5 cm forearm lipoma. The underlying subcutaneous lipoma was excised in toto and passed off for pathologic evaluation. Electrocautery was utilized to achieve hemostasis. Skin was reapproximated with running 5-0 chromic. The adjacent 1 cm lipoma was excised in a similar manner. Sterile dressings were applied and the patient was discharged home in good condition. Condition: stable Disposition: no change Specimens:: 1.5 cm left forearm lipoma 1 cm left forearm lipoma Complications:: No immediate
== END 2024-08-03 10:15 | disposition home or self-care (01) ==
PROVIDERS: PCP Physician Assistant; Visit Provider Surgery
PROC: (CPT 11402; principal; 2024-08-03 09:15)
DX: D17.22 Benign lipomatous neoplasm of skin and subcutaneous tissue of left arm (principal)
CPT/HCPCS: 11402; 11401

== ENCOUNTER 2024-08-06 13:43 | Outpatient (CLI) | payer OTHER, SELFPAY ==
--- NOTE | 2024-08-06 13:46 | CT_ITS ---
FINAL REPORT TECHNIQUE: Thin section axial images were obtained through the paranasal sinuses without contrast. CLINICAL HISTORY: h/o sinus problems FINDINGS: The paranasal sinuses are clear. There is no air-fluid level or significant mucosal thickening. The bilateral ethmoid infundibulum are patent. There are bilateral hilar air cells. Prominent right nasal septal deviation is seen. Mastoid air cells are clear. There is no acute osseous abnormality. There is no acute osseous abnormality. Remaining soft tissues are within normal limits. IMPRESSION: No evidence of acute sinusitis. Anatomic variant as above. Reviewed, Interpreted and Dictated by Erin Iyer MD Transcribed by Haritha Huynh Authenticated and [facility]
== END 2024-08-06 23:59 | disposition home or self-care (01) ==
LOC: RAD 13:44
PROVIDERS: PCP Physician Assistant; Visit Provider Nurse Practitioner
DX: J32.9 Chronic sinusitis, unspecified (principal)
CPT/HCPCS: 70486

== ENCOUNTER 2024-08-21 10:50 | Outpatient (POV) | payer OTHER, SELFPAY | END 2024-08-21 23:59 | disposition home or self-care (01) | LOC: SC 10:50 | PROVIDERS: Visit Provider Specialist/Technologist | DX: Z00.00 Encounter for general adult medical examination without abnormal findings (principal) ==

== ENCOUNTER 2024-09-25 11:50 | Outpatient (CLI) | payer OTHER, SELFPAY ==
[2024-09-25 14:33] LABS: Albumin Level 4.3 g/dl (3.5-5.0); Chloride 108 mmol/L (98-107)
[2024-09-25 14:34] LABS: Potassium 3.8 mmoL/L (3.5-5.1); Sodium 138 mmol/L (136-145)
[2024-09-25 14:36] LABS: Alanine Aminotransferase 25 U/L (12-78); Albumin/Globulin Ratio 1.7 (1.1-1.8); Alkaline Phosphatase 107 U/L (38-126); Anion Gap 8.8 mEq/L (5-15); Aspartate Amino Transferase 31 U/L (14-36); Bilirubin,Total 0.4 mg/dl (0.2-1.3); Blood Urea Nitrogen 6 mg/dl (7-17); Carbon Dioxide 25 mmol/L (22.0-30.0); Estimated Glomerular Filt Rate 74 ml/min (>60); GFR (African American) 90 ML/MIN (>60); Globulin 2.5 g/dL (1.3-3.2); Total Protein,Serum 6.8 g/dl (6.3-8.2)
[2024-09-25 14:37] LABS: Glucose 151 mg/dl (74-100)
[2024-09-25 14:43] LABS: Basophils % 0.5 % (0.1-2.0); Eosinophils # 0.1 K/mm3 (0.0-0.4); Eosinophils % 2.1 % (0.1-12.0); Hematocrit 40.6 % (37.0-47.0); Hemoglobin 14.1 g/dL (12.2-16.2); Lymphocytes # 1.6 K/mm3 (0.7-4.5); Lymphocytes % 29.8 % (10-50); Mean Corpuscular HGB Conc 34.6 g/dL (31.8-35.4); Mean Corpuscular Hemoglobin 30.3 pg (27.0-31.2); Mean Corpuscular Volume 87.4 fl (81-99); Mean Platelet Volume 7.3 fl (7.4-10.4); Monocytes # 0.3 K/mm3 (0.1-1.0); Monocytes % 5.7 % (1.7-9.3); Neutrophils # 3.4 K/mm3 (1.8-7.8); Platelet Count 260 K/mm3 (142-424); Red Blood Count 4.65 M/mm3 (4.20-5.40); White Blood Count 5.5 K/mm3 (4.8-10.8)
== END 2024-09-25 23:59 | disposition home or self-care (01) ==
LOC: PREOP 11:50
PROVIDERS: Nurse Practitioner; PCP Physician Assistant; Visit Provider Otolaryngology
DX: Z01.812 Encounter for preprocedural laboratory examination (principal)
CPT/HCPCS: 80053; 85025

== ENCOUNTER 2024-09-26 11:57 | Day surgery (SDC) | payer OTHER, SELFPAY ==
[2024-09-24 16:44] VITALS: BMI 29.7
--- NOTE | 2024-09-25 12:16 | ECG_ITS ---
APPROVED REPORT Exam: Resting ECG HR:86 bpm ECG Measurements Heart Rate 86 AXES IN 146 P 71 QRSd 72 QRS 56 QT 356 T 71 QTc 399 Conclusion SINUS RHYTHM NONSPECIFIC T-WAVE ABNORMALITY BORDERLINE ECG UNCONFIRMED REPORT Electronically signed by : Andrea Brenner MD 09/30/2024 12:54:06
--- NOTE | 2024-09-26 12:45 | P.PNANES_ITS ---
[facility] Disclaimer: The information contained in this section may have been updated after the patient was seen, as this information can be updated by other users. Medical History Acute sinusitis SNHL (sensorineural hearing loss) Otalgia, left ear Abdominal bloating Ear pain Tinnitus Vertigo Hearing loss of both ears Asthma Abnormal screening computed tomography (CT) of chest Dyspnea on exertion Allergic rhinitis Tobacco abuse Nocturnal hypoxemia JESS (obstructive sleep apnea) Hx of LEEP (loop electrosurgical excision procedure) of cervix complicating Nicotine dependence Atrophy of vagina Heterozygous factor V Leiden mutation Vasomotor symptoms due to menopause Fibrocystic disease of both breasts History of PCOS Bipolar 1 disorder Insomnia Anxiety Migraines Surgical History History of colonoscopy History of hysterectomy, supracervical abdominal (subtotal) Hx of tonsillectomy H/O breast biopsy Family History Unknown Factor V Leiden mutation Pulmonary embolism Social History Smoking Status: Current every day smoker tobacco type: cigarettes packs per day: 1 alcohol intake: never substance use type: denies use current occupational status: unemployed Travel in the last 8 weeks: None caffeine: Yes [facility] Anesthesia Checklist Patient Identification Patient Identification: Arm Band and Verbal (Name & ) Structural Data Admitted From: Home Planned Operative Procedure/s: EGD Consent for Planned Operative Procedure(s) Verified: Yes Verified Documents: Surgical Consent and History and Physical NPO Status Verified Time NPO: 00:00 Additional verifications Anesthesia Reactions: No Hx Blood Transfusions: No Blood Transfusion Reaction: No Airway Assessment Mallampati Score:: Class II C-Spine Mobility Assessed: Yes TMJ Mobility Assessed: Yes Dentition: Good Dentition Neurological Assessment Level of Consciousness: Awake Hx Seizures: No Numbness or tingling in extremities: No Anesthesia Plan Anesthesia Risk discussed: Yes Anesthesia Plan: Verified ASA Class: II Anesthesia Type: MAC
[2024-09-26] MEDS: 0.9 % SODIUM CHLORIDE 1000ML 1,000 ML 25 ML IV (12:55)
[2024-09-26 13:07] VITALS: BP 150/87; PULSE 81; RESP 18; TEMP 36.9; O2SAT 94
[2024-09-26 13:39] VITALS: O2SAT 100
--- NOTE | 2024-09-26 13:45 | EXP.HP ---
History of Present Illness *Admission Date: 09/26/24 *Reason for visit:: Epigastric pain/dyspepsia *History of present illness: Mrs. Reyes is a 54-year-old female who is here for diagnostic upper endoscopy secondary to dyspepsia. She has had epigastric abdominal pain, bloating, nausea, belching and early satiety. The examination is deemed medically necessary for upper endoscopy. The patient has been seen, interviewed and examined prior to the procedure by both myself and the anesthesia provider. [facility] Disclaimer: The information contained in this section may have been updated after the patient was seen, as this information can be updated by other users. Medical History Acute sinusitis SNHL (sensorineural hearing loss) Otalgia, left ear Abdominal bloating Ear pain Tinnitus Vertigo Hearing loss of both ears Asthma Abnormal screening computed tomography (CT) of chest Dyspnea on exertion Allergic rhinitis Tobacco abuse Nocturnal hypoxemia JESS (obstructive sleep apnea) Hx of LEEP (loop electrosurgical excision procedure) of cervix complicating Nicotine dependence Atrophy of vagina Heterozygous factor V Leiden mutation Vasomotor symptoms due to menopause Fibrocystic disease of both breasts History of PCOS Bipolar 1 disorder Insomnia Anxiety Migraines Surgical History History of colonoscopy History of hysterectomy, supracervical abdominal (subtotal) Hx of tonsillectomy H/O breast biopsy Family History Unknown Factor V Leiden mutation Pulmonary embolism Social History (Updated 09/26/24 @ 12:46 by Renu Christie RN) Smoking Status: Current every day smoker tobacco type: cigarettes packs per day: 1 alcohol intake: never substance use type: denies use current occupational status: unemployed Travel in the last 8 weeks: None caffeine: No Other Medical History Have you received the Flu Vaccine for this season: No Have you received the Pneumonia Vaccine: No Review of Systems Review of Systems Review of systems (narrative): Negative *Cardiovascular Comments: Negative *Gastrointestinal Comments: Negative *Genitourinary Comments: Negative *Musculoskeletal Comments: Negative *Neurologic Comments: Negative Meds Home Medications and Allergies Home Medications ?Medication ?Instructions ?Recorded ?Confirmed ?Type cetirizine 10 mg capsule (Zyrtec) 10 mg PO DAILY PRN ALLERGIES 12/02/22 09/26/24 History lamotrigine 150 mg tablet 300 mg PO DAILY SEIZURES 08/04/23 09/26/24 History (Lamictal) calcium carbonate 260 mg PO DAILY 03/14/24 09/26/24 History ibuprofen 600 mg tablet 600 mg PO Q8H PRN Pain 03/14/24 09/26/24 History lorazepam 2 mg tablet 2 mg PO DAILY Anxiety 03/14/24 09/26/24 History multivitamin (One Daily 1 tab PO DAILY 03/14/24 09/26/24 History Multivitamin tablet) omeprazole 20 mg capsule,delayed 20 mg PO DAILY 03/14/24 09/26/24 History release rimegepant 75 mg disintegrating 75 mg PO Q OTHER DAY PRN MIGRAINES 03/14/24 09/26/24 History tablet (Nurtec ODT) hydrocortisone 2.5 % topical cream 1 applic topical BID PRN rash #30 04/23/24 09/26/24 Rx grams azelastine 205.5 mcg (0.15 %) 2 spray intranasal HS 90 days #30 07/04/24 09/26/24 Rx nasal spray (Astepro Allergy) mL atorvastatin 10 mg tablet (Lipitor) 10 mg PO QHS 90 days #90 tabs 07/06/24 09/26/24 Rx prazosin 2 mg capsule 2 mg PO DAILY 07/18/24 09/26/24 History bupropion HCl 200 mg tablet,12 hr 200 mg PO DAILY 08/02/24 09/26/24 History sustained-release (Wellbutrin SR) citalopram 40 mg tablet (Celexa) 40 mg PO DAILY 08/02/24 09/26/24 History buspirone 10 mg tablet 10 mg PO BID Functional dyspepsia 08/23/24 09/26/24 Rx #60 tabs gabapentin 300 mg capsule 300 mg PO HS Hot flashes #30 caps 09/14/24 09/26/24 Rx New Prescriptions to Start Prescriptions: Allergies Allergy/AdvReac Type Severity Reaction Status Date / Time levofloxacin [From Levaquin] AdvReac Unknown Blurry Verified 09/26/24 12:47 Vision Exam Data for Last 24 hours Vital signs and Labs for Last 24 Hours: Temp Pulse Resp BP Pulse Ox O2 Del Method O2 Flow Rate 98.4 F 81 18 150/87 H 94 L Nasal Cannula 5 09/26/24 13:07 09/26/24 13:07 09/26/24 13:07 09/26/24 13:07 09/26/24 13:07 09/26/24 13:39 09/26/24 13:39 I & O for Last 24 hours: Intake & Output 09/23/24 09/24/24 09/25/24 09/26/24 22:59 23:59 23:59 23:59 Weight 190 lb *Routine HEENT Exam Head: Present normocephalic Eye: Present EOMI and PERRL ENT: Present mucous membranes moist *Routine Neck Exam Neck: Present supple *Routine Respiratory Exam Respiratory: Present CTA bilaterally *Routine Cardiovascular Exam Cardiovascular: Present RRR *Routine Abdominal Exam Abdominal: Present soft and normoactive bowel sounds; Absent tenderness *Routine Rectal Exam Rectal:: deferred *Routine Genitalia Exam Genitalia:: deferred *Routine Extremities Exam Extremities: Absent cyanosis, clubbing or edema *Routine Skin Exam Skin: Present warm; Absent rash *Routine Neurological Exam Neurological: Present alert and oriented X3 Assessment and Plan *Assessment and plan (1) Functional dyspepsia: Status: Acute Category: Medical Code(s): K30 - Functional dyspepsia (2) Bloating: Status: Acute Category: Medical Code(s): R14.0 - Abdominal distension (gaseous) (3) Early satiety: Status: Acute Category: Medical Code(s): R68.81 - Early satiety (4) Nausea: Status: Acute Category: Medical Code(s): R11.0 - Nausea Plan A/P: 1. Epigastric pain/nausea, fullness and early satiety is the preprocedural diagnosis. The patient will be anesthetized/sedated using MAC sedation. The patient has been seen and examined. Cardiac and lung assessment prior to the examination is stable. Proceed with planned EGD
--- NOTE | 2024-09-26 13:48 | P.PCN_ITS ---
[facility] Procedure Note Date: 09/26/24 Time: 13:57 Procedure Note:: Upper Endoscopy Procedure Report: Esophagogastroduodenoscopy with cold biopsies Endoscopost: Andres James II, MD Referring Physician: Kylah Calzada PA-C Date of Procedure: September 26, 2024 Equipment: Olympus GIF 190 standard upper endoscope Sedation: MAC sedation Indications: Mrs. Reyes is a 54-year-old female who is here for diagnostic upper endoscopy secondary to intense intermittent epigastric abdominal pain and dys pepsia. The patient reports nausea, early satiety, fullness, bloating and some belching. She does have some chronic constipation. The patient was seen in the office and improved with the use of buspirone. She is having more bloating with the MiraLAX Citrucel combination and is not taking this. The patient reports no dysphagia. She did have a colonoscopy in March 2024 and the report states that there was severe colonic spasticity and she had a hepatic flexure polyp but there was poor bowel preparation. A subsequent barium enema was essentially normal. Close interval colonoscopy was recommended. Procedure: Prior to the procedure, a history and physical exam was performed, and patient's medications and allergies were reviewed. The risks, benefits and alternatives of the sedation and procedure were discussed with the patient. All questions were answered and informed consent was obtained. The patient was brought to the procedure room. Patient identification and proposed procedure were verified by the physician and the nurse. The patient was placed in a left lateral decubitus position and the scope was passed under direct vision. Throughout the procedure, the patient's blood pressure, pulse, and oxygen saturations were monitored continuously. The upper GI endoscopy was accomplished without difficulty. The patient tolerated the procedure well. Findings: The scope was passed directly into the upper esophagus and advanced to the third portion of the duodenum. The post bulbar duodenum and duodenal bulb were normal with normal mucosa and conniventes. The ampulla was normal in appearance. The scope was withdrawn through a normal duodenal bulb and pylorus into the stomach. There was linear reactive gastropathy of the antrum with bile reflux. The body and fundus of the stomach were normal. Upon retroflexion there was no hiatal hernia. Cold biopsies were taken from the antrum. The scope was then withdrawn into the esophagus. There was no evidence of reflux esophagitis or Arguelles's. The remainder of the esophageal mucosa was normal. Impression: 1. Mild linear reactive gastropathy of antrum with mild bile reflux Plan: Most of her symptoms of dyspepsia are related to and driven by lower intestinal gas pressure gradients/high gas pressure buildup resulting in backflow of bile and peptic fluid from the duodenum into the stomach (duodenal reflux). This gas production (carbon dioxide, hydrogen, methane, etc.) from the lower intestinal tract is the byproduct of colonic bacterial fermentation. This colonic fermentation occurs when there is more carbohydrate (dietary starches, sugars and high residue plant fiber) substrate that does not get digested (in the middle or small intestine) or occurs when there is colonic fecal buildup and colonic bacterial overgrowth. This indeed leads to bloating and the gas pressure buildup with gas pressure gradients that do drive backflow and dyspepsia. I would continue the buspirone and recommend that she add [id number] Iberogast. She would benefit from treatment of her chronic constipation and would consider Trulance or Linzess.
[2024-09-26 13:56] VITALS: BP 113/63; PULSE 78; RESP 18; TEMP 36.2; O2SAT 93
[2024-09-26 14:06] VITALS: BP 113/70; PULSE 76; RESP 18; O2SAT 93
[2024-09-26 14:16] VITALS: BP 114/68; PULSE 75; RESP 17; O2SAT 95
[2024-09-26 14:26] VITALS: BP 126/72; PULSE 80; RESP 18; O2SAT 95
== END 2024-09-26 14:48 | disposition home or self-care (01) ==
PROVIDERS: PCP Physician Assistant; Visit Provider Internal Medicine Gastroenterology
PROC: 0DJ08ZZ Inspection of Upper Intestinal Tract, Via Natural or Artificial Opening Endoscopic (ICD-10-PCS; CPT 43235; principal; 2024-09-26 13:30)
DX: K30 Functional dyspepsia (principal); R14.0 Abdominal distension (gaseous); R68.81 Early satiety; R11.0 Nausea; K31.9 Disease of stomach and duodenum, unspecified
CPT/HCPCS: 43239; 93005; J7030

== ENCOUNTER 2024-10-03 08:54 | Day surgery (SDC) | payer OTHER, SELFPAY ==
[2024-09-25 12:03] VITALS: BMI 35.1
[2024-10-03] VITALS (9 sets, daily range): BP systolic 125–153; BP diastolic 77–89; PULSE 80–95; RESP 16–18; TEMP 36.1–36.6; O2SAT 91–99
[2024-10-03] MEDS: LACTATED RINGERS 1000ML 1,000 ML 25 ML IV (09:32)
--- NOTE | 2024-10-03 10:32 | EXP.ANES.CKL ---
[facility] Disclaimer: The information contained in this section may have been updated after the patient was seen, as this information can be updated by other users. Medical History Acute sinusitis SNHL (sensorineural hearing loss) Otalgia, left ear Abdominal bloating Ear pain Tinnitus Vertigo Hearing loss of both ears Asthma Abnormal screening computed tomography (CT) of chest Dyspnea on exertion Allergic rhinitis Tobacco abuse Nocturnal hypoxemia JESS (obstructive sleep apnea) Hx of LEEP (loop electrosurgical excision procedure) of cervix complicating Nicotine dependence Atrophy of vagina Heterozygous factor V Leiden mutation Vasomotor symptoms due to menopause Fibrocystic disease of both breasts History of PCOS Bipolar 1 disorder Insomnia Anxiety Migraines Surgical History History of colonoscopy History of hysterectomy, supracervical abdominal (subtotal) Hx of tonsillectomy H/O breast biopsy Family History Unknown Factor V Leiden mutation Pulmonary embolism Social History Smoking Status: Current every day smoker tobacco type: cigarettes packs per day: 1 alcohol intake: never substance use type: denies use current occupational status: unemployed Travel in the last 8 weeks: None caffeine: No [facility] Anesthesia Checklist Patient Identification Patient Identification: Arm Band and Verbal (Name & ) Structural Data Admitted From: Home Planned Operative Procedure/s: Septoplasty Consent for Planned Operative Procedure(s) Verified: Yes Verified Documents: Surgical Consent and History and Physical NPO Status Verified Time NPO: 00:00 Additional verifications Anesthesia Reactions: No Hx Blood Transfusions: No Blood Transfusion Reaction: No Airway Assessment Mallampati Score:: Class II C-Spine Mobility Assessed: Yes TMJ Mobility Assessed: Yes Dentition: Good Dentition Neurological Assessment Level of Consciousness: Awake Hx Seizures: No Numbness or tingling in extremities: No Anesthesia Plan Anesthesia Risk discussed: Yes Anesthesia Plan: Verified ASA Class: II Anesthesia Type: General
[2024-10-03] MEDS: CEFAZOLIN SODIUM 2 GM in 0.9 % SODIUM CHLORIDE 100 ML IV (11:18)
[2024-10-03] MEDS: OXYMETAZOLINE NASAL SPRAY 0.05% 15ML 15 ML NS (11:35)
[2024-10-03] MEDS: LIDOCAINE 1% W/EPI 1:100,000 20ML VIAL 20 ML (11:35)
[2024-10-03] MEDS: 0.9 % SODIUM CHLORIDE 1000ML 1,000 ML 25 ML IV (11:35)
--- NOTE | 2024-10-03 12:34 | P.OP_ITS ---
Date of procedure: 10/03/24 Pre-op Diagnosis:: Deviated septum, turbinate hypertrophy Post-op Diagnosis:: Deviated septum, turbinate hypertrophy Procedure performed:: Septoplasty, submucous resection of inferior turbinates bilaterally, partial resection left middle turbinate Surgeon:: Jason Farias MD [employer]INE OPERATOR:: Marcia Mosqueraady Anesthesia: GETA Estimated blood loss (mL): 50 Operative findings:: Severely deviated septum to the right, turbinate hypertrophy bilaterally worse on the left, hypertrophy of the left middle turbinate Operative note:: The patient was brought to the operating room and after adequate general anesthesia the nose was draped in the usual sterile fashion and 1% lidocaine with epinephrine used to locally infiltrate the septum and inferior turbinates. A right hemitransfixion incision was made and a mucoperichondrial flap elevated off the bony and cartilaginous septum on the right side. The cartilaginous septum was mobilized and brought back to midline and then a large bony and cartilaginous spur posteriorly from the vomer was resected and then the mucoperichondrial flaps returned to anatomic position and held in place with a 4-0 plain gut horizontal mattress suture and hemitransfixion incision closed with 4-0 chromic. Submucosal resection of the hypertrophic bone of the left inferior turbinate was performed through an anterior inferior incision taking care to spare the overlying mucosa. The left middle turbinate was markedly medialized and therefore partially resected using turbinate scissors. Submucosal resection of the redundant soft tissue of the inferior turbinates was performed with a microdebrider and turbinate blade through an anterior incision and this was done bilaterally. The bone of the inferior turbinates was then lateralized bilaterally. Rice splints were then placed on the septum and secured to the caudal mall using 3-0 nylon and the procedure concluded. All counts correct and blood loss was minimal Condition: stable Disposition: PACU Complications:: No complications
--- NOTE | 2024-10-03 12:51 | EXP.ANES.I ---
[facility] Anesthesia Record Part I Anesthesia Record I Intake, IV Amount: 900 Hydration: Adequate Estimated blood loss (mL): 25 Urine output (mL): 0 Blood Products used (#): none Blood Pressure: 152/89 SaO2: 91 Pulse Rate: 92 Airway Patency: Patent Respiratory Rate: 16 Temperature: 97.0 F Patient is:: Awake, Drowsy, Oral/Nasal airway (9.[address] upon arrival to PACU. Removed @ 1248) and Stable Stable to PACU at:: 12:49
[2024-10-03] MEDS: MEPERIDINE 25MG/ML 1ML SYRINGE 25 MG IV (12:57)
[2024-10-03] MEDS: MORPHINE 2MG/ML SYRINGE 1 MG IV ×2 (13:04→13:14)
[2024-10-03] MEDS: ONDANSETRON 4MG/2ML VIAL 4 MG IV (13:19)
--- NOTE | 2024-10-04 11:35 | P.PNANES_ITS ---
[facility] Anesthesia Record Part II Anesthesia Record Part II Discharge Time: 13:14 Destination: Surgical Day Care (OP Surgery) PACU nurse assessment reviewed?: Yes Patient Condition:: Good Anesthesia Complications:: None Swallowing reflex intact?: Yes Airway Patency: Patent Cyanosis?: No Blood Pressure: 146/87 SaO2: 93 Respiratory Rate: 16 Pulse Rate: 89 Temperature: 97.0 F Mental Status: Alert & Oriented Pain level:: 3 Nausea and/or vomitting:: None Intake, IV Amount: 900 Hydration: Adequate
[2024-10-04 11:36] VITALS: BP 146/87; PULSE 89; RESP 16; TEMP 36.1; O2SAT 93
== END 2024-10-03 14:00 | disposition home or self-care (01) ==
PROVIDERS: PCP Internal Medicine; Visit Provider Otolaryngology
PROC: (CPT 30520; principal; 2024-10-03 10:15)
DX: J34.2 Deviated nasal septum (principal); Z72.0 Tobacco use; J34.3 Hypertrophy of nasal turbinates
CPT/HCPCS: 30520; 30999; 96374; J3490; J0690; J1100; J2175; J2250; J2270; J2405; J3010; J7030; J7120

== ENCOUNTER → 2025-01-15 20:25 | Outpatient (CLI) | payer OTHER, SELFPAY | LOC: SL 20:27 | PROVIDERS: PCP Internal Medicine; Visit Provider Otolaryngology | DX: G47.33 Obstructive sleep apnea (adult) (pediatric) (principal) | CPT/HCPCS: 95811 ==

== ENCOUNTER 2025-01-18 15:39 | Emergency (ER) | payer OTHER, SELFPAY ==
[2025-01-18] VITALS (7 sets, daily range): BP systolic 135–169; BP diastolic 83–106; PULSE 80–102; RESP 12–20; TEMP 36.9; O2SAT 96–99; BMI 29.0
--- NOTE | 2025-01-18 15:40 | ECG_ITS ---
APPROVED REPORT Exam: Resting ECG HR:104 bpm ECG Measurements Heart Rate 104 AXES MS 144 P 64 QRSd 77 QRS 53 QT 336 T 63 QTc 396 Conclusion SINUS TACHYCARDIA ABNORMAL RHYTHM ECG Electronically signed by : BREANNE QUINN, 01/20/2025 08:23:26
--- NOTE | 2025-01-18 15:53 | HMH.EDCP ---
Discharge Plan Disposition Patient Disposition: Home, Self-Care Condition: Good Prescriptions Prescriptions: No Action multivitamin [One Daily Multivitamin] Tablet 1 tab PO DAILY prazosin 2 mg capsule 2 mg PO DAILY Patient Comments: TAKE 1 CAPSULE BY MOUTH AT BEDTIME DIRECTED hydroxyzine HCl 25 mg tablet 25 mg PO NEEDED PRN (Reason: Anxiety) Patient Comments: TAKE 1 TABLET BY MOUTH TWICE DAILY NEEDED FOR ANXIETY OR SLEEP Nurtec ODT 75 mg tablet,disintegrating 75 mg PO Q OTHER DAY PRN (Reason: MIGRAINES) atorvastatin [Lipitor] 10 mg tablet 10 mg PO QHS 90 Days Qty: 90 0RF buspirone 10 mg tablet 10 mg PO BID Qty: 60 12RF Rx Instructions: Please take 1/2 tablet p.o. nightly x 5 to 7 days and then 1 tablet p.o. nightly x 5 to 7 days and then 1 tablet p.o. twice daily thereafter gabapentin 300 mg capsule 300 mg PO HS Qty: 30 1RF lamotrigine [Lamictal] 150 mg tablet 300 mg PO DAILY lorazepam 2 mg tablet 2 mg PO DAILY Rx Instructions: 1/2 Q AM PRN, 1 QHS PRN citalopram [Celexa] 40 mg tablet 40 mg PO DAILY Rx Instructions: Take 1 tablet by mouth once daily bupropion HCl [Wellbutrin SR] 200 mg tablet sustained-release 12 hr 200 mg PO DAILY Rx Instructions: Take 1 tablet by mouth once daily Referrals Follow up/Referrals: Reynaldo Yoon DO [Primary Care Provider] - See instructions Activity Restrictions/Add. Instructions Additional Instructions/Restrictions: Today your evaluated in the emergency department. Your workup was overall unremarkable. Your chest x-ray did not show any pneumonia. You have upper respiratory infection. Follow-up with PCP within 7 days. Return to the ED for worsening of condition. Clinical Impressions Clinical Impression: URI (upper respiratory infection) Qualifiers: URI type: unspecified viral URI Qualified Code(s): J06.9 - Acute upper respiratory infection, unspecified Stand Alone Forms Stand Alone Forms: Work/School Release Instructions Patient Instructions: DI for Viral Upper Respiratory Infection -- Adult Print Language Print Language: Kyrgyz Discharge ED Provider: Francisco Grande [facility] <Margarita Yan APRN - Last Filed: 01/18/25 17:24> General Chief Complaint: Chest Pain Stated Complaint: chest pain Time Seen by Provider: 01/18/25 15:46 Mode of Arrival: Ambulatory Source of Information: Patient Limitations: No Limitations Description of Symptoms (Recalled from ER Triage Doc. by RN): pt c/o an elevated HR/BP, lightheadedness, a productive cough with white/brown sputum, and sternal chest tightness/pressure that is 2/10. All ongoing x5d. pt denies SOA, abd pain or urinary symptoms. History of Present Illness HPI narrative: Patient is a 55 year old female PMHx JESS, PTSD, anxiety, bipolar, back pain who presents to the ED for cough and congestion x 6 days. Patient states that her chest hurts when she coughs only. She states they have had multiple sick contacts within the home over the past 4 weeks. Related Data Home Medications ?Medication ?Instructions ?Recorded ?Confirmed lamotrigine 150 mg tablet 300 mg PO DAILY SEIZURES 08/04/23 01/18/25 (Lamictal) lorazepam 2 mg tablet 2 mg PO DAILY Anxiety 03/14/24 01/18/25 multivitamin (One Daily 1 tab PO DAILY 03/14/24 01/18/25 Multivitamin tablet) rimegepant 75 mg disintegrating 75 mg PO Q OTHER DAY PRN MIGRAINES 03/14/24 01/18/25 tablet (Nurtec ODT) prazosin 2 mg capsule 2 mg PO DAILY 07/18/24 01/18/25 bupropion HCl 200 mg tablet,12 hr 200 mg PO DAILY 08/02/24 01/18/25 sustained-release (Wellbutrin SR) citalopram 40 mg tablet (Celexa) 40 mg PO DAILY 08/02/24 01/18/25 hydroxyzine HCl 25 mg tablet 25 mg PO NEEDED PRN Anxiety 10/08/24 01/18/25 Previous Rx's ?Medication ?Instructions ?Recorded atorvastatin 10 mg tablet (Lipitor) 10 mg PO QHS 90 days #90 tabs 07/06/24 buspirone 10 mg tablet 10 mg PO BID Functional dyspepsia 08/23/24 #60 tabs gabapentin 300 mg capsule 300 mg PO HS Hot flashes #30 caps 11/16/24 Allergies Allergy/AdvReac Type Severity Reaction Status Date / Time levofloxacin (From Levaquin) AdvReac Unknown Blurry Verified 01/18/25 15:52 Vision [facility] <Margarita Yan APRN - Last Filed: 01/18/25 17:24> [facility] Disclaimer: The information contained in this section may have been updated after the patient was seen, as this information can be updated by other users. Medical History Acute sinusitis SNHL (sensorineural hearing loss) mild precipitous SNHL, bilateral per Audiometric Otalgia, left ear Abdominal bloating Ear pain intermittent, bilateral Tinnitus Vertigo Hearing loss of both ears Asthma Abnormal screening computed tomography (CT) of chest Dyspnea on exertion Allergic rhinitis Tobacco abuse Advised to consider smoking cessation Nocturnal hypoxemia Nocturnal hypoxemia out of proportion for the degree of mild JESS observed. JESS (obstructive sleep apnea) Hx of LEEP (loop electrosurgical excision procedure) of cervix complicating Nicotine dependence Atrophy of vagina Heterozygous factor V Leiden mutation Vasomotor symptoms due to menopause Fibrocystic disease of both breasts History of PCOS Bipolar 1 disorder Insomnia Anxiety Migraines Surgical History Status post nasal septoplasty History of colonoscopy History of hysterectomy, supracervical abdominal (subtotal) Hx of tonsillectomy H/O breast biopsy Family History Unknown Factor V Leiden mutation Pulmonary embolism Social History Smoking Status: Current every day smoker tobacco type: cigarettes packs per day: 1 alcohol intake: never substance use type: denies use current occupational status: unemployed Travel in the last 8 weeks: None caffeine: No Have you lived/traveled outside [place] in past 30 days?: No Contact w/someone who lives/traveled outside US past 30 days?: No Exposure to someone with infectious disease in past 14 days?: No Do you have a fever (greater than 100.4 F or 38 C)?: No Have you tested positive for COVID-19: No Exposed to someone with COVID-19 in past 14 days?: No Do you have a sore throat?: No Do you have a cough?: No Do you have any weakness?: No Do you have any diarrhea?: No Are you experiencing any unusual bleeding?: No Do you have any muscle aches/pain?: No Do you have any abdominal pain?: No Are you experiencing loss of taste or smell?: No Other Medical History Have you received the Flu Vaccine for this season: No Have you received the Pneumonia Vaccine: No <Margarita Yan APRN - Last Filed: 01/18/25 17:24> ROS Obtained: Yes Systems reviewed as appropriate & no additional complaints except as documented Physical Exam <Margarita Yan APRN - Last Filed: 01/18/25 17:24> General General appearance: alert and in no apparent distress Head Head exam: atraumatic and normocephalic Eye Eye exam: Present normal appearance and PERRL ENT ENT exam: Present normal exam Neck Neck exam: Present normal inspection Chest Chest inspection: Present normal inspection and symmetric chest wall rise; Absent tenderness Respiratory Respiratory exam: Present normal lung sounds bilaterally Cardiovascular Cardiovascular exam: Present regular rate Abdominal Exam Abdominal exam: Present soft and normal bowel sounds; Absent tenderness Extremities Exam Extremities exam: Present normal inspection and full ROM Back Exam Back exam: Present normal inspection and full ROM Neurological Exam Neurological exam: Present alert and oriented X3 Psychiatric Psychiatric exam: Present normal affect and normal mood Skin Skin exam: Present warm and dry HEART Score <Margarita Yan APRN - Last Filed: 01/18/25 17:24> HEART Score HEART Score assessment performed?: Yes History (anamnesis): Slightly suspicious ECG: Normal Age: 45-65 years Risk factors: No known risk factors Troponin: </= normal limit HEART Score: 1 <Francisco Grande MD - Last Filed: 01/18/25 20:15> HEART Score HEART Score: 1 Critical Care <Margarita Yan APRN - Last Filed: 01/18/25 17:24> Critical Care Time Critical Care Time: No Medical Decision Making <Margarita Yan APRN - Last Filed: 01/18/25 17:24> Konstantin Inquiry Pt receiving controlled substance: No Konstantin was queried for this patient: No Vital Signs Vital Signs: 01/18/25 15:45 01/18/25 15:46 01/18/25 16:00 Temperature 98.5 F Temperature Source Oral Pulse Rate 102 H 88 Pulse Rate [Left] 101 H Respiratory Rate 18 17 18 Blood Pressure 163/92 H 150/85 H Blood Pressure [Right Arm] 169/106 H Blood Pressure Mean [Right Arm] 127 Blood Pressure Source Blood Pressure Source [Right Arm] Automatic Cuff Blood Pressure Position [Right Arm] Sitting 02 Sat by Pulse Oximetry 98 99 96 Oxygen Delivery Method Room Air Room Air 01/18/25 16:15 01/18/25 16:30 01/18/25 16:45 Temperature Temperature Source Pulse Rate 89 84 82 Pulse Rate [Left] Respiratory Rate 16 12 13 Blood Pressure 149/95 H 154/90 H 135/86 Blood Pressure [Right Arm] Blood Pressure Mean [Right Arm] Blood Pressure Source Blood Pressure Source [Right Arm] Blood Pressure Position [Right Arm] 02 Sat by Pulse Oximetry 97 97 98 Oxygen Delivery Method Room Air Room Air Room Air 01/18/25 17:28 Temperature 98.5 F Temperature Source Oral Pulse Rate 80 Pulse Rate [Left] Respiratory Rate 20 Blood Pressure 141/83 H Blood Pressure [Right Arm] Blood Pressure Mean [Right Arm] Blood Pressure Source Automatic Cuff Blood Pressure Source [Right Arm] Blood Pressure Position [Right Arm] 02 Sat by Pulse Oximetry Oxygen Delivery Method Room Air Lab Data Labs: Lab Results 01/18/25 15:45: WBC 6.6, RBC 4.76, Hgb 13.8, Hct 41.3, MCV 86.8, MCH 29.0, MCHC 33.4, RDW 12.0, Plt Count 248, MPV 9.0, Neut % (Auto) 59.2, Lymph % (Auto) 31.3, [place] % (Auto) 6.7, Eos % (Auto) 2.0, Baso % (Auto) 0.6, Neut # (Auto) 3.9, Lymph # (Auto) 2.1, [place] # (Auto) 0.4, Eos # (Auto) 0.1, Baso # (Auto) 0.0, Sodium 137, Potassium 3.7, Chloride 107, Carbon Dioxide 26, Anion Gap 7.7, BUN 4 L, Creatinine 0.80, Estimated Creat Clear 104, Estimated GFR 74, Est GFR ( Amer) 90, Glucose 107 H, Calcium 9.3, Total Bilirubin 0.4, AST 38 H, ALT 27, Alkaline Phosphatase 107, Troponin I < 0.01, Total Protein 7.1, Albumin 4.8, Globulin 2.3, Albumin/Globulin Ratio 2.1 H, HCV Ab NISH w/Rflx PCR Qn Negative, HIV Ag/Ab Combo Qual Negative 01/18/25 16:25: SARS-CoV-2 (PCR) Not detected, Influenza A Untype (PCR) Not detected, Influenza Type B (PCR) Not detected 01/18/25 15:45 01/18/25 15:45 Response Orders (Tests/Meds): ED MEDICATIONS Discontinued Medications Generic Name Dose Route Start Last Admin Trade Name Antoni PRN Reason Stop Dose Admin Guaifenesin 200 mg 01/18/25 15:57 01/18/25 16:05 Guaifenesin 200mg/10ml Syrup Udc PO 01/18/25 15:58 200 mg ONCE ONE Administration ORDERS Category Date Time Status CXR --portable [XR chest portable] Stat Exams 01/18/25 15:57 Completed CBC w/Auto Diff [Complete Blood Count Auto Diff] Stat Lab 01/18/25 15:45 Completed CMP [Comprehensive Metabolic Panel] Stat Lab 01/18/25 15:45 Completed HIV Combo Stat Lab 01/18/25 15:45 Completed Hepatitis C Ab Qual. W/ RFX Stat Lab 01/18/25 15:45 Completed Rapid PCR Covid and Flu A/B Stat Lab 01/18/25 16:25 Completed Trop I [Troponin I] Stat Lab 01/18/25 15:45 Completed Troponin I Q3H Lab 01/18/25 22:00 Ordered MDM Narrative Medical Decision Narrative: In summary, patient is a 55 year old female PMHx JESS, PTSD, anxiety, bipolar, back pain who presents to the ED for cough and congestion x 6 days. Patient states that her chest hurts when she coughs only. She states they have had multiple sick contacts within the home over the past 4 weeks. Patient states she initially had influenza approximately 4 weeks ago. Has not taken any medication prior to arrival. Denies any cardiac history. Upon initial exam, patient is alert, oriented and cooperative. Patient is hemodynamically stable. Physical exam unremarkable. Denies fever, chills, headache, visual disturbances, shortness of breath, back pain, abdominal pain, nausea, vomiting, dysuria. Differential diagnosis includes ACS, dissection, pneumonia, pneumothorax, infectious process, viral syndrome, among others. Initial workup will be conducted with hematologic labs and imaging. Initial workup reviewed by me. CBC unremarkable. CMP unremarkable. Negative troponin. I informally interpreted the imaging as no acute cardiopulmonary findings. See final read. Upon repeat evaluation, patient had an acceptable resolution of symptoms. They were ambulatory in the ED. Able to tolerate PO. Given this, I feel patient is stable to be discharged home at this time. We discussed [id number] cough medications. Patient declined a prescription for cough medication. Discussed following up with PCP within 7 days. We discussed return precautions to the ED. Patient verbalized understanding <Francisco Grande MD - Last Filed: 01/18/25 20:15> Vital Signs Vital Signs: 01/18/25 15:45 01/18/25 15:46 01/18/25 16:00 Temperature 98.5 F Temperature Source Oral Pulse Rate 102 H 88 Pulse Rate [Left] 101 H Respiratory Rate 18 17 18 Blood Pressure 163/92 H 150/85 H Blood Pressure [Right Arm] 169/106 H Blood Pressure Mean [Right Arm] 127 Blood Pressure Source Blood Pressure Source [Right Arm] Automatic Cuff Blood Pressure Position [Right Arm] Sitting 02 Sat by Pulse Oximetry 98 99 96 Oxygen Delivery Method Room Air Room Air 01/18/25 16:15 01/18/25 16:30 01/18/25 16:45 Temperature Temperature Source Pulse Rate 89 84 82 Pulse Rate [Left] Respiratory Rate 16 12 13 Blood Pressure 149/95 H 154/90 H 135/86 Blood Pressure [Right Arm] Blood Pressure Mean [Right Arm] Blood Pressure Source Blood Pressure Source [Right Arm] Blood Pressure Position [Right Arm] 02 Sat by Pulse Oximetry 97 97 98 Oxygen Delivery Method Room Air Room Air Room Air 01/18/25 17:28 Temperature 98.5 F Temperature Source Oral Pulse Rate 80 Pulse Rate [Left] Respiratory Rate 20 Blood Pressure 141/83 H Blood Pressure [Right Arm] Blood Pressure Mean [Right Arm] Blood Pressure Source Automatic Cuff Blood Pressure Source [Right Arm] Blood Pressure Position [Right Arm] 02 Sat by Pulse Oximetry Oxygen Delivery Method Room Air Lab Data Labs: Lab Results 01/18/25 15:45: WBC 6.6, RBC 4.76, Hgb 13.8, Hct 41.3, MCV 86.8, MCH 29.0, MCHC 33.4, RDW 12.0, Plt Count 248, MPV 9.0, Neut % (Auto) 59.2, Lymph % (Auto) 31.3, [place] % (Auto) 6.7, Eos % (Auto) 2.0, Baso % (Auto) 0.6, Neut # (Auto) 3.9, Lymph # (Auto) 2.1, [place] # (Auto) 0.4, Eos # (Auto) 0.1, Baso # (Auto) 0.0, Sodium 137, Potassium 3.7, Chloride 107, Carbon Dioxide 26, Anion Gap 7.7, BUN 4 L, Creatinine 0.80, Estimated Creat Clear 104, Estimated GFR 74, Est GFR ( Amer) 90, Glucose 107 H, Calcium 9.3, Total Bilirubin 0.4, AST 38 H, ALT 27, Alkaline Phosphatase 107, Troponin I < 0.01, Total Protein 7.1, Albumin 4.8, Globulin 2.3, Albumin/Globulin Ratio 2.1 H, HCV Ab NISH w/Rflx PCR Qn Negative, HIV Ag/Ab Combo Qual Negative 01/18/25 16:25: SARS-CoV-2 (PCR) Not detected, Influenza A Untype (PCR) Not detected, Influenza Type B (PCR) Not detected Response Orders (Tests/Meds): ED MEDICATIONS Discontinued Medications Generic Name Dose Route Start Last Admin Trade Name Freq PRN Reason Stop Dose Admin Guaifenesin 200 mg 01/18/25 15:57 01/18/25 16:05 Guaifenesin 200mg/10ml Syrup Udc PO 01/18/25 15:58 200 mg ONCE ONE Administration ORDERS Category Date Time Status CXR --portable [XR chest portable] Stat Exams 01/18/25 15:57 Completed CBC w/Auto Diff [Complete Blood Count Auto Diff] Stat Lab 01/18/25 15:45 Completed CMP [Comprehensive Metabolic Panel] Stat Lab 01/18/25 15:45 Completed HIV Combo Stat Lab 01/18/25 15:45 Completed Hepatitis C Ab Qual. W/ RFX Stat Lab 01/18/25 15:45 Completed Rapid PCR Covid and Flu A/B Stat Lab 01/18/25 16:25 Completed Trop I [Troponin I] Stat Lab 01/18/25 15:45 Completed Troponin I Q3H Lab 01/18/25 22:00 Ordered MDM Narrative Medical Decision Narrative: In summary, patient is a 55 year old female PMHx JESS, PTSD, anxiety, bipolar, back pain who presents to the ED for cough and congestion x 6 days. Patient states that her chest hurts when she coughs only. She states they have had multiple sick contacts within the home over the past 4 weeks. Patient states she initially had influenza approximately 4 weeks ago. Has not taken any medication prior to arrival. Denies any cardiac history. Upon initial exam, patient is alert, oriented and cooperative. Patient is hemodynamically stable. Physical exam unremarkable. Denies fever, chills, headache, visual disturbances, shortness of breath, back pain, abdominal pain, nausea, vomiting, dysuria. Differential diagnosis includes ACS, dissection, pneumonia, pneumothorax, infectious process, viral syndrome, among others. Initial workup will be conducted with hematologic labs and imaging. Initial workup reviewed by me. CBC unremarkable. CMP unremarkable. Negative troponin. I informally interpreted the imaging as no acute cardiopulmonary findings. See final read. Upon repeat evaluation, patient had an acceptable resolution of symptoms. They were ambulatory in the ED. Able to tolerate PO. Given this, I feel patient is stable to be discharged home at this time. We discussed [id number] cough medications. Patient declined a prescription for cough medication. Discussed following up with PCP within 7 days. We discussed return precautions to the ED. Patient verbalized understanding I was consulted by the DANIEL, and we discussed the complexity of the problems being addressed. I approved the treatment and management plan for this patient's care in the Emergency Department, thus performing a substantive portion of the medical decision making. Francisco Grande MD
--- NOTE | 2025-01-18 15:57 | XR_ITS ---
FINAL REPORT CLINICAL HISTORY: Chest pain COMPARISON: None FINDINGS: A single portable view of the chest was obtained. No acute pulmonary opacity is present. There is no evidence of effusion or pneumothorax. Mediastinum is unremarkable. Heart size is normal. IMPRESSION: No acute abnormality. Reviewed, Interpreted and Dictated by Sue Rosales MD Transcribed by Mere Valera Authenticated and [facility]
[2025-01-18 16:01] LABS: Basophils % 0.6 % (0.1-2.0); Eosinophils # 0.1 K/mm3 (0.0-0.4); Hematocrit 41.3 % (37.0-47.0); Hemoglobin 13.8 g/dL (12.2-16.2); Lymphocytes # 2.1 K/mm3 (0.7-4.5); Lymphocytes % 31.3 % (10-50); Mean Corpuscular HGB Conc 33.4 g/dL (31.8-35.4); Mean Corpuscular Volume 86.8 fl (81-99); Monocytes # 0.4 K/mm3 (0.1-1.0); Monocytes % 6.7 % (1.7-9.3); Neutrophils # 3.9 K/mm3 (1.8-7.8); Neutrophils % 59.2 % (37.0-80.0); Platelet Count 248 K/mm3 (142-424); Red Blood Count 4.76 M/mm3 (4.20-5.40); White Blood Count 6.6 K/mm3 (4.8-10.8)
[2025-01-18] MEDS: guaiFENesin 200MG/10ML SYRUP UDC 200 MG PO (16:05)
[2025-01-18 16:27] LABS: Alanine Aminotransferase 27 U/L (12-78); Albumin Level 4.8 g/dl (3.5-5.0); Albumin/Globulin Ratio 2.1 (1.1-1.8); Alkaline Phosphatase 107 U/L (38-126); Anion Gap 7.7 mEq/L (5-15); Aspartate Amino Transferase 38 U/L (14-36); Bilirubin,Total 0.4 mg/dl (0.2-1.3); Blood Urea Nitrogen 4 mg/dl (7-17); Calcium 9.3 mg/dl (8.4-10.2); Carbon Dioxide 26 mmol/L (22.0-30.0); Chloride 107 mmol/L (98-107); Creatinine Clearance Estimated 104 mL/min (50-200); Estimated Glomerular Filt Rate 74 ml/min (>60); GFR (African American) 90 ML/MIN (>60); Globulin 2.3 g/dL (1.3-3.2); Glucose 107 mg/dl (74-100); Potassium 3.7 mmoL/L (3.5-5.1); Sodium 137 mmol/L (136-145); Total Protein,Serum 7.1 g/dl (6.3-8.2)
[2025-01-18 16:34] LABS: Coronavirus 19, PCR Not Detected (NotDetected); Influenza A, PCR Not Detected (NotDetected); Influenza B, PCR Not Detected (NotDetected)
[2025-01-18 17:05] LABS: Troponin I < 0.01 ng/ml (0.00-0.034)
--- NOTE | 2025-01-18 17:22 | PC.NURSE ---
Andrés Yan APRN at bedside
[2025-01-18 17:44] LABS: HIV Combo NEGATIVE (Negative)
[2025-01-18 17:52] LABS: Hepatitis C Ab Qual. W/ RFX NEGATIVE (Negative)
== END 2025-01-18 17:30 | disposition home or self-care (01) ==
PROVIDERS: Nurse Practitioner; Emergency Provider Emergency Medicine; PCP Internal Medicine
DX: J06.9 Acute upper respiratory infection, unspecified (principal); R07.9 Chest pain, unspecified; R42 Dizziness and giddiness; R09.3 Abnormal sputum; R05.9 Cough, unspecified; R09.81 Nasal congestion; F17.210 Nicotine dependence, cigarettes, uncomplicated
CPT/HCPCS: 71045; 80053; 84484; 85025; 86803; 87389; 87636; 93005; 99284

== ENCOUNTER 2025-01-23 13:45 | Outpatient (CLI) | payer OTHER, SELFPAY ==
[2025-01-23 21:11] LABS: Microscopic, Urine URINE MICROSCOPIC (MICROSCOPIC)
[2025-01-23 22:03] LABS: Appearance,Urine CLEAR (Clear); Bilirubin,Urine Negative (Negative); Blood, Urine TRACE-I (Negative); Color,Urine YELLOW (Yellow); Glucose,Urine (UA) Negative (Negative); Ketones,Urine Negative (Negative); Leukocyte Esterase,Urine Negative (Negative); Nitrate,Urine Negative (Negative); PH,Urine 6.5 (5.0-8.5); Protein,Urine Negative (Negative); Specific Gravity, Urine <= 1.005 (1.005-1.030); Urobilinogen,Urine 0.2 EU/dl (0.2)
[2025-01-23 23:06] LABS: Cholesterol 191 mg/dl (140-200); Iron 59 ug/dL (37-170); Triglycerides 84 mg/dl (30-150); VLDL Cholesterol 17 mg/dL (0-40)
[2025-01-23 23:07] LABS: Chol/HDL Ratio 2.5 (1-3.5); HDL Cholesterol 76 mg/dl (40-60)
[2025-01-23 23:18] LABS: Direct LDL Cholesterol 85.18 mg/dL (100-129)
[2025-01-23 23:21] LABS: 25-OH Vitamin D, Total 32.4 ng/mL (30-100)
[2025-01-23 23:25] LABS: Total Iron Binding Capacity 327 ug/dL (265-497)
[2025-01-24 00:27] LABS: Bacteria,Urine Trace /lpf; Squamous Epithelial Cell,Urine Occasional #/hpf (0-5); WBC,Urine Occasional #/hpf (0-3)
[2025-01-24 00:34] LABS: Ferritin 14.3 ng/ml (11.1-264)
[2025-01-24 04:42] LABS: Vitamin B12 756 pg/mL (239-931)
[2025-01-24 15:16] LABS: RPR W/RFX Titers Nonreactive (Nonreactive)
[2025-01-25 07:47] LABS: Chlamydia trachomatis Negative (Negative); Neisseria gonorrhoeae Negative (Negative); Trichomonas vaginalis Negative (Negative)
[2025-01-29 13:28] LABS: HSV-1 DNA Negative (Negative); HSV-2 DNA Negative (Negative)
== END 2025-01-23 23:59 | disposition home or self-care (01) ==
LOC: LAB.DROPOF 01-24 09:58
PROVIDERS: PCP Nurse Practitioner Family; Visit Provider Nurse Practitioner Family
DX: Z13.1 Encounter for screening for diabetes mellitus (principal); E78.5 Hyperlipidemia, unspecified; R53.83 Other fatigue; N94.9 Unspecified condition associated with female genital organs and menstrual cycle
CPT/HCPCS: 80061; 81001; 82306; 82607; 82728; 83036; 83540; 83550; 86592; 87086; 87491; 87529; 87591; 87661

== ENCOUNTER 2025-02-15 13:45 | Outpatient (CLI) | payer OTHER, SELFPAY ==
--- NOTE | 2025-02-15 13:47 | MM_ITS ---
PROCEDURE INFORMATION: Exam: MG Bilateral Screening 3D Mammography Exam date and time: 02/15/2025 1:50 PM Age: 55 years old Clinical indication: Screening exam TECHNIQUE: Imaging protocol: Bilateral Screening tomosynthesis and 2D mammography including computer-aided detection (CAD) when performed. COMPARISON: 1. MG MM DIG SCREENING MAMM BI W/CAD 02/03/2024 10:02 AM 2. MG MM DIG SCREENING MAMM BI W/CAD 02/01/2023 9:38 AM FINDINGS: MAMMOGRAPHY: Breast composition: The breasts are heterogeneously dense, which may obscure small masses. Mass: No suspicious masses. Architectural distortion: None. Calcifications: No suspicious calcifications. Asymmetric density: None. Skin thickening: None. Axillary adenopathy: None. IMPRESSION: No mammographic evidence of malignancy. Annual screening is recommended unless otherwise clinically indicated. ASSESSMENT: BI-RADS Category 1: Negative.
== END 2025-02-15 23:59 | disposition home or self-care (01) ==
LOC: RAD 13:45
PROVIDERS: Visit Provider Obstetrics & Gynecology
DX: Z12.31 Encounter for screening mammogram for malignant neoplasm of breast (principal)
CPT/HCPCS: 77063; 77067

== ENCOUNTER 2025-04-25 13:45 | Outpatient (CLI) | payer OTHER, SELFPAY ==
[2025-04-25 16:58] LABS: Coronavirus 19, PCR Not Detected (NotDetected); Human Rhinovirus Not Detected (NotDetected); Influenza A, PCR Not Detected (NotDetected); Influenza B, PCR Not Detected (NotDetected); Respiratory Syncytial Virus Not Detected (NotDetected)
--- OUTSIDE RECORDS SUMMARY | 2025-04-26 14:52 | XMS_ITS | Data Portability ---
Author Organization [place] - [facility] KristineSHAKILA [address] Address [address] [place] [address] Assessment Encounter Date Assessment Date Assessment LastModified by Organization Details LastModified Time 10/15/2020 10/15/2020 This is a very pleasant 50-year-old woman referred by Tobias Nickerson D.O. for evaluation of suspected Combivir migraine. She has very complex past medical history including significant alcohol and substance abuse. She has M ni re's disease, vestibular migraine, severe bruxism. She had an episode of facial weakness to the point she was biting her tongue on the left side. This happened at the end of June 2020, acute onset followed by severe headache, vascular, throbbing, aching, associated with photophobia, sonophobia, and nausea. She was seen in the hospital with negative workup and it was felt that this represented a complicated migraine. Symptoms have subsequently resolved. She is been describing difficulty with word retrieval, short-term memory deficits, difficulty completing sentences, associated with prostration, embarrassment, exacerbated by feeling pressured, stress, sleep deprivation, improved to some degree with some more calm environment. Her past substance abuse including marijuana, LSD, cocaine, and heavy alcohol for 30 years. She is now abstinent for 7 years. Review of systems is positive for M ni re's disease, vestibular migraine, bruxism, perimenopausal state, cognitive impairment, episode of facial weakness but no recent fever, chills, illness, acute bladder bowel changes, skin rash or lesions, chest pain or palpitations. All other systems have been personally reviewed, negative Physical Exam: Constitutional: Level of distress is awake & alert. Well developed and well nourished. Overall appearance is age appropriate and good hygiene. Eyes: Right General eye condition is normal. Lid/lash: normal. No injection. No icterus. Cornea is unremarkable. PERRLA. Iris: normal. Anterior chamber: normal. Fundus is benign. EOM's intact - no nystagmus. Left General eye condition is normal. Lid/lash: normal. No injection. No icterus. Cornea is unremarkable. PERRLA. Iris: normal. Anterior chamber: normal. Fundus is benign. EOM's intact - no nystagmus. Red reflexes are symmetric. Cardiovascular: Palpation Percussion: PMI normal. Heart Sounds: NL S1, NL S2. Extra Sounds: None. Murmurs: None. Rate and Rhythm: Heart rate is regular rate. Rhythm is regular. JVD is absent. See also extremities. No edema is present. Vascular: Pulses: Carotid pulses: normal. Dorsalis pedis pulses: normal. Posterior tibial pulses: normal. Musculoskeletal: Muscle tone is normal in all extremities proximally and distally with no drift, tremor, fasciculations Cervical: Tender trigger points in the occiput at the insertion of the trapezius and sternocleidomastoid muscles. No carotid bruits or adenopathy Thoracic: No kyphosis or scoliosis. No sensory deficit or sensory level Lumbar: Good range of motion Comments: negative straight leg raise. Extremities: Dorsalis pedis pulses: normal. Posterior tibial pulses: normal. No edema is present. Neurological: Level of Consciousness: Normal. Optic Nerve: Pupils normal. Fundoscopic examination reveals a normal appearance of the optic disc and retina vasculature . Papilledemia is not noted. Visual Garcia: normal with confrontational testing Oculomotor: normal blink rate and pupils size. Trochlear: normal upward gaze. Abducens: No nystagmus with lateral gaze in either direction Motor reflexes normal. Sensation normal. Trigeminal: Sensation is intact V1 through V3 bilaterally Motor and Reflexes: normal. Facial: normal facial symmetry bilaterally Acoustic: Hearing is intact to finger rubbing eye laterally Glossopharyngeal: Gag is intact Vagus: normal. Spinal Accessory: Shoulders shrug symmetrically Hypoglossal: Speech is normal with no dysarthria or aphasia Balance & Gait: Normal gait and station Coordination: Coordination intact. Fine Motor: no tremor, mild past-pointing. Head Motor Function is normal. CN V: Temporal muscles equal in size and contraction; no fasciculations seen. CN V: Masseter muscles equal in size and contraction, no fasciculations seen. CN VII: Forehead muscles were intact and no tics were seen. CN VII: Orbicularis Oculi eyelids closed symmetrically. CN VII: Mouth patient can puff the cheeks out, raise the lips to show the teeth, and whistle. CN VII: Soft Palate uvula elevates in the midline when the patient says aah . CN XI: Sternomastoid patient can turn the chin to both sides against resistance. CN XII: Tongue extends in the midline and fasiculations are not seen. Deltoid: abduction of the arms is normal. Biceps-Brachialis: Forearm flexion is intact without cogwheel rigidity. Triceps: Extension of the forearm is normal. Wrist Extensors: There is no weakness of extension at the wrist. Wrist Flexors: Flexion of the wrist is intact and symmetrical. Thenar: Opposition of the thumb and digits is strong. Interossei: The patient can spread the fingers against resistance. Iliopsoas: The patient could raise the knee against pressure while supine. Gluteus Joshua: Extension at the hip was strong against pressure. Quadriceps: 5/5 strength on the left side, 5/5 strength on the right side, Hamstrings: Knee flexion against resistance was 5/5 and symmetric. Peronei: Eversion (external rotation) of the feet is intact. Tibialis Anterior: Dorsiflexion of the feet is 5/5 and symmetric. Gastrocnemius - Soleus: Plantar flexion of the feet is intact and the patient can stand on their tiptoes. Biceps deep tendon reflex is 1+ bilaterally. Brachioradialis deep tendon reflex is 1+ bilaterally. Triceps deep tendon reflex is 1+ bilaterally. Patellar reflex is 1+ bilaterally. Achilles reflex is 1 bilaterally. Babinski: Reflexes normal downgoing toes. Normal facial expression. Strong voice. No drooling. Arises from chair with use of both arms. Cautious, 4 step pivot. No retropulsion. Psychiatric: The patient is oriented to time, place, person, and situation. The patient's affect is normal, very pleasant during the interview. She discusses very openly her 30 year history of alcohol abuse, polysubstance abuse including marijuana, LSD, cocaine. She is very positive at this point and is very active in Alcoholics Anonymous. She feels anxious at times but denies any significant depression. She has occasional insomnia. She is concerned about her cognitive impairment.. Comments: Higher Integrative Functioning: The patient is oriented to time, place and person. Recent and remote memory are intact. Attention span and concentration are normal. Language has normal spontaneous speech and prosody. Fund of knowledge is normal for age, socioeconomic status and educational level. 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 but no history of DVT or other blood clots #7 M ni re's disease #8 vestibular migraine #9 bruxism Plan: #1 extensive review of this very complex medical, psychological, neurological individual with a very long and complicated history of alcohol and polysubstance abuse #2 discussion regarding the fact that she had a migraine with focal deficits therefore indicating complicated migraine #3 hospital records and imaging studies are reviewed personally by myself at length with the patient, normal evaluation at the time #4 recommend aspirin 81 mg daily because of her blood clotting disorder and complicated migraine #5 we have discussed donepezil 5 mg to address cognitive impairment most likely secondary to long history of polysubstance abuse. We have also discussed EB-C3, medical supplement for cognitive impairment. Information is provided to the patient regarding these medications #6 recommend mental stimulating exercises such as reading, crossword puzzles, word search, computer eye for applications #7 avoid the use of triptan because of complicated migraine #8 return in 3 months for reevaluation with additional recommendations Cc: Tobias Nickerson D.O. [email or web address] Not available 12/23/2020 11:13:38 Plan of Treatment Reminders Order Date Submit Date Provider Last Modified By Organization Details Last Modified Time Details Appointments None record ed. Lab None record ed. Referral None record ed. Procedures None record ed. Surgeries None record ed. Imaging None record ed. Medication Orders None record ed. Patient TargetsNo targets recorded. Patient InstructionsNo instructions recorded. Reason for Referral None Reported. Problems Name Problem SNOMED Code Status Onset Date Resolution Date Notes Provider Name and Address Organization Details Recorded Time Complicated migraine 169807786 Active 2019 CYNDY DE LEÓN MD [address] [place] [address], [id number], [address] 0 13:36:30 Headache 27745384 Active 2019 [place] [address] [place] [address], [id number], [address] 0 13:39:05 Weakness of face muscles 67919796 Active 2019 CYNDY DE LEÓN MD [address] [place] [address], [phone] 0, [address] 0 13:40:16 Bipolar disorder 37162538 Active 2019 CYNDY DE LEÓN MD [address] [place] [address], [phone] 0, [address] 0 13:43:08 Mood disorder 10705706 Active 2019 CYNDY DE LEÓN MD [address] [place] [address], [phone] 0, [address] 0 13:43:57 Problem Notes None recorded. Procedures Surgical History Date Name Laterality Status Provider Name and Address Organization Details Recorded Time endometrial ablation completed Caitlin Jackson Director Radiation Oncology [address] 10/15/2020 13:20:55 Tonsillectomy and/or Adenoidectomy completed Caitlin Jackson Director Radiation Oncology [address] 10/15/2020 13:21:03 Hysterectomy completed Caitlin Jackson Director Radiation Oncology [address] 10/15/2020 13:21:10 Imaging Results None recorded. Procedure Notes None recorded. Medical Equipment None Reported. Allergies No known drug allergies Medications Name Sig Start Date Stop Date Status Note LastModified by Organization Details LastModified Time lamotrigine 150 mg tablet TAKE TWO TABLETS BY MOUTH EVERY MORNING AND ONE TABLET IN THE EVENING active Not Available Not Available No t Available citalopram 40 mg tablet TAKE ONE TABLET BY MOUTH ONE TIME DAILY active Not Available Not Available No t Available azithromycin 250 mg tablet TAKE TWO TABLETS BY MOUTH ON DAY 1, THEN TAKE ONE TABLET ONE TIME DAILY ON DAYS 2-5 10/15 completed Not Available Not Available Not Available Zyrtec 10 mg tablet Take 1 tablet every day by oral route. active Not Available Not Available No t Available lorazepam 2 mg tablet TAKE ONE AND ONE-HALF TABLETS BY MOUTH EVERY NIGHT AT BEDTIME active Not Available Not Available No t Available benzonatate 100 mg capsule TAKE ONE CAPSULE BY MOUTH THREE TIMES A DAY FOR 15 DAYS 10/15 completed Not Available Not Available Not Available doxycycline hyclate 100 mg tablet TAKE ONE TABLET BY MOUTH TWICE A DAY FOR 7 DAYS 10/15 completed Not Available Not Available Not Available bupropion HCl SR 200 mg tablet,12 hr sustained-re lease TAKE ONE TABLET BY MOUTH EVERY MORNING active Not Available Not Available No t Available multivitamin active Not Available Not Available Not Available Calcium 500 + D active Not Available Not Available Not Available omeprazole 20 mg tablet,delay ed release Take 1 tablet every day by oral route. active Not Available Not Available No t Available Probiotic active Not Available Not Consuelo ilable Not Available Vitals Date Recorded Body weight Heart rate Oxygen saturation Oxygen saturation in Arterial blood by Pulse oximetry Body mass index (BMI) Body height Systolic blood pressure Diastolic blood pressure Provider Name and Address Organization Details Last Updated DateTime 0 34715.6 3 g 102 /min 98 % 98 % 32.9 kg/m2 157.48 cm 122 mm[Hg] 82 mm[Hg] Caitlin Manuel Director Radiation Oncology [address] 0 13:26:39 Social History Question Answer Notes LastModified by Organizat ion Details LastModified Time Tobacco Smoking Status Current Every Day Smoker Caitlin Manuel Director Radiation Oncology Cert [address] 10/15/2020 13:20:37 How Much Tobacco Do You Smoke? 1 PPD [email or web address] Information not available 10/15/2020 Sex: Unknown Functional Status None recorded. Mental Status None recorded. Family History Relationship Description Onset Age of this Age Resolved Age Notes LastModified by Organization Details LastModified Time Mother Hypertensive disorder [email or web address] Not available 10/15 13:19:28 Mother Depressive disorder [email or web address] Not available 10/15 13:19:35 Mother Anxiety disorder [email or web address] Not available 10/15 13:19:41 Father Hypertensive disorder [email or web address] Not available 10/15 13:19:46 Father Orthostatic hypotension [email or web address] Not available 13:19:55 Father Depressive disorder [email or web address] Not available 10/15 13:20:01 Maternal Grandmother Rheumatoid arthritis 84 [email or web address] Not available 10/15 13:20:25 Medical History No medical history recorded. Gynecological HistoryNo gynecological history recorded. Obstetrics History GPAL:G 0 P 0 0 0 0 Past Encounters Encounter ID Performer Location Encounter Start Date Encounter Closed Date Diagnosis/Indication Diagnosis SNOMED-CT Code Diagnosis ICD10 Code Diagnosis Note [id number] CYNDY DE LEÓN MD [facility] [address] [place] [address] 10/15/2020 13:12:21 10/15/2020 14:16:25 Complicated migraine 969145725 G43.109 Headache 65741932 R51.9 Weakness o f face muscles 60664357 R29.810 Bipolar disorder 2566539 4 F31.9 Mood disorder 00370386 F 39 Health Concerns Section Related Observation LastModified by Organization Detai ls LastModified Time None Recorded Concern Status LastModified by Organization Details LastModified Time None Recorded Advance Directives Directive None Recorded Payers Insurance Date Sequence Insurance Name Policy Number Policy Noel Covered Member ID Noel Member ID Guarantor Name 04/11/2021 1 [facility] [id number] Roz Reyes [id number] Roz Reyes OBGyn Episode No OBEpisode recorded.
--- OUTSIDE RECORDS SUMMARY | 2025-04-26 14:53 | XMS_ITS | Data Portability ---
Author Organization [place] [facility] Address [address] [place] [address] Care Team Providers Care Retail Sales Teammate Name Role Phone MATA SHEETS Primary Care Provider MATA SHEETS Referring Provider DELMY BOWER Psychologist Assessment No assessment recorded. Plan of Treatment Reminders Order Date Submit Date Provider Last Modified By Organization Details Last Modified Time Details Appointments None recorded. Lab urinalysis, dipstick 2020 021 ANKIT In-Office Order, Internal Use Only DO Not Attach Compendium DO Not Attach Compendium, Do Not Delete/merge, [id number] 12:24:40 bacterial vaginosis + vaginitis panel, vaginal 2020 021 [facility], [address], [place], [address], 00:52:07 bacterial vaginosis + vaginitis panel, vaginal 2020 021 [facility], [address], [address], [place], [address], 1 20:51:56 pap, IG + HPV mRNA E6/E7 2020 021 [facility], [address], [address], [place], [address], 1 10:06:16 TSH + free T4, serum 2019 [facility], [address], [address], [place], [address], 1 14:35:15 lipid panel, serum 2019 ANKIT [facility], [address], [address], [place], [address], 1 14:35:15 CBC w/ auto diff 2019 [facility], [address], [address], [place], [address], 1 14:35:17 CMP, serum or plasma 2019 [facility], [address], [address], [place], [address], 1 14:35:16 GRISELDA (antinuclea r antibodies) screen, ifa, serum 2019 [facility], [address], [address], [place], [address], 1 14:35:18 erythrocyte sedimentati on rate by westergren method 2019 [facility], [address], [address], [place], [address], 14:35:16 rf (rheumatoid factor), serum 2019 [facility], [address], [address], [place], [address], 14:35:18 rapid SARS CoV 2 Ag, QL IA, respiratory specimen 2019 [email or web address] In-Office Order, Internal Use Only DO Not Attach Compendium DO Not Attach Compendium, Do Not Delete/merge, [id number] 0 08:34:46 colon cancer screening, stool 2019 020 [facility] (Cologuard Orders Only), [address], [address], [place], [address], 1 12:02:34 lh + FSH, serum 2019 020 [facility], [address], [address], [place], [address], 1 14:35:14 prolactin, serum 2019 020 [facility], [address], [address], [place], [address], 1 14:35:19 rapid strep group A, throat 2019 020 [email or web address] In-Office Order, Internal Use Only DO Not Attach Compendium DO Not Attach Compendium, Do Not Delete/merge, [id number] 0 12:32:46 rapid flu (A+B) 2019 020 ANKIT In-Office Order, Internal Use Only DO Not Attach Compendium DO Not Attach Compendium, Do Not Delete/merge, [id number] 0 13:47:54 Referral behavioral health referral 2020 021 [email or web address] In-Office Order, Internal Use Only DO Not Attach Compendium DO Not Attach Compendium, Do Not Delete/merge, [id number] 1 10:10:04 Procedures None recorded. Surgeries None recorded. Imaging None recorded. Medication Orders cyclobenzap rine 5 mg tablet 2020 021 [email or web address] [facility] [place], [address], 1 13:41:18 naproxen 500 mg tablet 2020 021 [email or web address] [facility], [address] [place], [address], 1 13:43:03 Tessalon Perles 100 mg capsule 2019 020 [facility], [address] [place], [address], 0 11:48:05 doxycycline hyclate 100 mg tablet 2019 020 [facility], [address] [place], [address], 0 11:48:10 Patient TargetsNo targets recorded. Patient Instructions Encounter Date Encounter Id Patient Instructions Last Modified By Organization Details Last Modified Time 02/06/2020 [id number] Patient instructed of the risk and benefit of the current treatment. Patient voiced understanding. Not available 02/06/2020 12:35:48 11/10/2020 [id number] Patient instructed of the risk and benefit of the current treatment. Patient voiced understanding. Not available 11/10/2020 12:29:11 12/01/2020 [id number] Patient instructed of the risk and benefit of the current treatment. Patient voiced understanding. Not available 12/01/2020 10:19:59 01/07/2021 [id number] getting back to normal after low back pain: care instructions Not available 01/07/2021 12:21:12 back care and preventing injuries: care instructions Not available 01/07/2021 12:21:11 05/29/2021 [id number] dental clearance* Not availab le 05/29/2021 16:57:32 Patient instructed of the risk and benefit of the current treatment. Patient voiced understanding. Not available 05/29/2021 08:53:23 Reason for Referral Behavioral Health Referral f or Mental health screening Referring Physician: Shakila Genao, Family Medicine, Encounter Date: 12/01/2020 Results Created Date Observation Date Name Description Value Unit Range Abnormal Flag Note LastModifiedBy Organization Detail LastModifiedTime 02/06/20 20 02/06/2020 rapid flu (A+B) Influenza A negati ve Not Available In-Office Order Internal Use Only DO Not Attach Compendium DO Not Attach Compendium, Do Not Delete/merge, [id number] 02/06/2020 12:32:33 02/06/20 20 02/06/2020 rapid flu (A+B) Influenza B negati ve Not Available In-Office Order Internal Use Only DO Not Attach Compendium DO Not Attach Compendium, Do Not Delete/merge, [id number] 02/06/2020 12:32:33 02/06/20 20 02/06/2020 rapid flu (A+B) Lot Number [id number] Not Available In-Offi ce Order Internal Use Only DO Not Attach Compendium DO Not Attach Compendium, Do Not Delete/merge, [id number] 02/06/2020 12:32:33 02/06/20 20 02/06/2020 rapid flu (A+B) Expiration Date 2020 Not Available In-Office Order Internal Use Only DO Not Attach Compendium DO Not Attach Compendium, Do Not Delete/merge, [id number] 02/06/2020 12:32:33 02/06/20 20 02/06/2020 rapid strep group A, throa t Strept A negati ve Not Available In-Office Order Internal Use Only DO Not Attach Compendium DO Not Attach Compendium, Do Not Delete/merge, [id number] 02/06/2020 12:08:43 02/06/20 20 02/06/2020 rapid strep group A, throa t Lot Number [id number] Not Available In-Offi ce Order Internal Use Only DO Not Attach Compendium DO Not Attach Compendium, Do Not Delete/merge, [id number] 02/06/2020 12:08:43 02/06/20 20 02/06/2020 rapid strep group A, throa t Expiration Date 2019 Not Available In-Office Order Internal Use Only DO Not Attach Compendium DO Not Attach Compendium, Do Not Delete/merge, [id number] 02/06/2020 12:08:43 02/06/20 20 02/06/2020 rapid strep group A, throa t Test Result Validity Valid Not Available In-Off ice Order Internal Use Only DO Not Attach Compendium DO Not Attach Compendium, Do Not Delete/merge, [id number] 02/06/2020 12:08:43 02/06/20 20 02/06/2020 rapid strep group A, kathleen t Built In Control Present Yes Not Available In-Off ice Order Internal Use Only DO Not Attach Compendium DO Not Attach Compendium, Do Not Delete/merge, [id number] 02/06/2020 12:08:43 11/10/20 20 11/10/2020 rapid SARS CoV 2 Ag, QL IA, respi rator y speci men Date test performed 2019 Not Available In-Office Order Internal Use Only DO Not Attach Compendium DO Not Attach Compendium, Do Not Delete/merge, [id number] 11/10/2020 12:30:32 11/10/20 20 11/10/2020 rapid SARS CoV 2 Ag, QL IA, respi rator y speci men Specimen Collection Site Nasal Not Available In-Off ice Order Internal Use Only DO Not Attach Compendium DO Not Attach Compendium, Do Not Delete/merge, [id number] 11/10/2020 12:30:32 11/10/20 20 11/10/2020 rapid SARS CoV 2 Ag, QL IA, respi rator y speci men SARS Negati ve Not Available In-Office Order Internal Use Only DO Not Attach Compendium DO Not Attach Compendium, Do Not Delete/merge, [id number] 11/10/2020 12:30:32 11/10/20 20 11/10/2020 rapid SARS CoV 2 Ag, QL IA, respi rator y speci men Procedure Control Valid Not Available In-Off ice Order Internal Use Only DO Not Attach Compendium DO Not Attach Compendium, Do Not Delete/merge, [id number] 11/10/2020 12:30:32 11/10/20 20 11/10/2020 rapid SARS CoV 2 Ag, QL IA, respi rator y speci men Lot # [id number] Not Available In-Office Order Internal Use Only DO Not Attach Compendium DO Not Attach Compendium, Do Not Delete/merge, [id number] 11/10/2020 12:30:32 11/10/20 20 11/10/2020 rapid SARS CoV 2 Ag, QL IA, respi rator y speci men Exp. Date 021 Not Available In-Office Order Internal Use Only DO Not Attach Compendium DO Not Attach Compendium, Do Not Delete/merge, [id number] 11/10/2020 12:30:32 11/20/2011/24/2020 lh + FSH, serum FSH 16.4 mIU/m L normal Refer ence Range Folli cular Phase 2.5-1 0.2 Mid-c ycle Peak 3.1-1 7.7 Lutea l Phase 1.5- 9.1 Postm enopa usal 23.0- 116.3 Not Available [facility] [address], [place], [address], 11/24/2020 14:35:14 11/20/20 20 11/24/2020 lh + FSH, serum LH 21.1 mIU/m L normal Refer ence Range Folli cular Phase 1.9-1 2.5 Mid-C ycle Peak 8.7-7 6.3 Lutea l Phase 0.5-1 6.9 Postm enopa usal 10.0- 54.7 Not Available [facility] [address], [place], [address], 11/24/2020 14:35:14 11/20/20 20 11/24/2020 TSH + free T4, serum TSH 0.93 mIU/L normal Refer ence Range > or = 20 Years 0.40- 4.50 Pregn antonia Range s First trime ster 0.26- 2.66 Secon d trime ster 0.55- 2.73 Third trime ster 0.43- 2.91 Not Available [facility] [address], [place], [address], 11/24/2020 14:35:15 11/20/2011/24/2020 TSH + free T4, serum T4, free 1.0 NG/dL 0.8-1. 8 normal Not Available [facility] [address], [place], [address], 11/24/2020 14:35:15 11/20/20 20 11/24/2020 lipid panel , serum cholesterol, total 228 mg/dL <200 high Not Available [facility] [address], [place], [address], 11/24/2020 14:35:15 11/20/20 20 11/24/2020 lipid panel , serum HDL cholesterol 63 mg/dL > or = 50 normal Not Available [facility] [address], [place], [address], 11/24/2020 14:35:15 11/20/20 20 11/24/2020 lipid panel , serum triglyceride s 89 mg/dL <150 normal Not Available [facility] [address], [place], [address], 11/24/2020 14:35:15 11/20/20 20 11/24/2020 lipid panel , serum LDL-choleste rol 146 mg/dL _(kassandra c) high Refer ence range : <100 Zenon able range <100 mg/dL for prima ry preve ntion ; <70 mg/dL for patie nts with CHD or diabe tic patie nts with > or = 2 CHD risk facto rs. LDL-C is now calcu lated using the Leah n-Hop kins calcu tamar n, which is a valid ated novel ciriloo nakita tian r accur acy than the Fried vero equat ion in the estim ation of LDL-C . Leah ochoa SS et al. LOPEZ. 2013; 310(1 9): 2061- 2068 (http ://ed ucati on.Qu estDi Mark43s. com/f aq/FA Q164) Not Available [facility] [address], [place], [address], 11/24/2020 14:35:15 11/20/20 20 11/24/2020 lipid panel , serum chol/HDLC ratio 3.6 (calc ) <5.0 normal Not Available [facility] [place] [facility] [address], [place], [address], 11/24/2020 14:35:15 11/20/20 20 11/24/2020 lipid panel , serum non HDL cholesterol 165 mg/dL _(kassandra c) <130 high For patie nts with diabe lucrecia plus 1 major ASCVD risk facto r, treat ing to a non-H DL-C goal of <100 mg/dL (LDL- C of <70 mg/dL ) is consi dered a thera peuti c optio n. Not Available [facility] [place] [facility] [address], [place], [address], 11/24/2020 14:35:15 11/20/20 20 11/24/2020 CMP, serum or plasm a glucose 108 mg/dL 65-99 high Fasti ng refer ence inter elma For someo ne witho ut known diabe lucrecia, a gluco se value betwe en 100 and 125 mg/dL is consi stent with predi abete s and shoul d be confi rmed with a follo w-up test. Not Available [facility] [place] [facility] [address], [place], [address], 11/24/2020 14:35:16 11/20/20 20 11/24/2020 CMP, serum or plasm a urea nitrogen (BUN) 5 mg/dL 7-25 low Not Available [facility] [place] [facility] [address], [place], [address], 11/24/2020 14:35:16 11/20/2011/24/2020 CMP, serum or plasm a creatinine 0.81 mg/dL 0.50-1 .05 normal For patie nts >49 years of age, the refer ence limit for Creat inine is appro ximat saniya 13% highe r for peopl e ident ified as Afric an-Am antony n. Not Available [facility] [place] [facility] [address], [place], [address], 11/24/2020 14:35:16 11/20/20 20 11/24/2020 CMP, serum or plasm a eGFR non-afr. uruguayan 84 mL/mi n/1.7 3m2 > or = 60 normal Not Available [facility] [address], [place], [address], 11/24/2020 14:35:16 11/20/20 20 11/24/2020 CMP, serum or plasm a eGFR 97 mL/mi n/1.7 3m2 > or = 60 normal Not Available [facility] [address], [place], [address], 11/24/2020 14:35:16 11/20/20 20 11/24/2020 CMP, serum or plasm a BUN/creatini ne ratio 6 (calc ) 6-22 normal Not Available [facility] [address], [place], [address], 11/24/2020 14:35:16 11/20/20 20 11/24/2020 CMP, serum or plasm a sodium 141 mmol/ L 135-14 6 normal Not Available [facility] [address], [place], [address], 11/24/2020 14:35:16 11/20/20 20 11/24/2020 CMP, serum or plasm a potassium 4.2 mmol/ L 3.5-5. 3 normal Not Available [facility] [address], [place], [address], 11/24/2020 14:35:16 11/20/2011/24/2020 CMP, serum or plasm a chloride 106 mmol/ L 98-110 normal Not Available [facility] [address], [place], [address], 11/24/2020 14:35:16 11/20/2010 1211/24/2020 CMP, serum or plasm a carbon dioxide 27 mmol/ L 20-32 normal Not Available [facility] [address], [place], [address], 11/24/2020 14:35:16 11/20/20 20 11/24/2020 CMP, serum or plasm a calcium 9.3 mg/dL 8.6-10 .4 normal Not Available [facility] [address], [place], [address], 11/24/2020 14:35:16 11/20/2011/24/2020 CMP, serum or plasm a protein, total 6.4 g/dL 6.1-8. 1 normal Not Available [facility] [address], [place], [address], 11/24/2020 14:35:16 11/20/20 20 11/24/2020 CMP, serum or plasm a albumin 4.1 g/dL 3.6-5. 1 normal Not Available [facility] [address], [place], [address], 11/24/2020 14:35:16 11/20/20 20 11/24/2020 CMP, serum or plasm a globulin 2.3 g/dL_ (calc ) 1.9-3. 7 normal Not Available [facility] [address], [place], [address], 11/24/2020 14:35:16 11/20/20 20 11/24/2020 CMP, serum or plasm a albumin/glob ulin ratio 1.8 (calc ) 1.0-2. 5 normal Not Available [facility] [address], [place], [address], 11/24/2020 14:35:16 11/20/20 20 11/24/2020 CMP, serum or plasm a bilirubin, total 0.4 mg/dL 0.2-1. 2 normal Not Available [facility] [address], [place], [address], 11/24/2020 14:35:16 11/20/20 20 11/24/2020 CMP, serum or plasm a alkaline phosphatase 65 U/L 37-153 normal Not Available [facility] [employer] [facility] [address], [place], [address], 11/24/2020 14:35:16 11/20/20 20 11/24/2020 CMP, serum or plasm a AST 18 U/L 10-35 normal Not Available [facility] [address], [place], [address], 11/24/2020 14:35:16 11/20/20 20 11/24/2020 CMP, serum or plasm a ALT 19 U/L 6-29 normal Not Available [facility] [address], [place], [address], 11/24/2020 14:35:16 11/20/20 20 11/24/2020 eryth rocyt e sedim entat ion rate by yelena lozadaren metho d sed rate by modified ivanren 6 mm/h < or = 30 normal Not Available [facility] [address], [place], [address], 11/24/2020 14:35:16 11/20/20 20 11/24/2020 CBC w/ auto diff white blood cell count 5.7 thous and/u L 3.8-10 .8 normal Not Available [facility] [address], [place], [address], 11/24/2020 14:35:17 11/20/20 20 11/24/2020 CBC w/ auto diff red blood cell count 4.88 jorge on/uL 3.80-5 .10 normal Not Available [facility] [facility] [address], [place], [address], 11/24/2020 14:35:17 11/20/2011/24/2020 CBC w/ auto diff hemoglobin 14.3 g/dL 11.7-1 5.5 normal Not Available [facility] [address], [place], [address], 11/24/2020 14:35:17 11/20/20 20 11/24/2020 CBC w/ auto diff hematocrit 42.7 % 35.0-4 5.0 normal Not Available [facility] [address], [place], [address], 11/24/2020 14:35:17 11/20/20 20 11/24/2020 CBC w/ auto diff MCV 87.5 fL 80.0-1 00.0 normal Not Available [facility] [address], [place], [address], 11/24/2020 14:35:17 11/20/2011/24/2020 CBC w/ auto diff MCH 29.3 pg 27.0-3 3.0 normal Not Available [facility] [address], [place], [address], 11/24/2020 14:35:17 11/20/20 20 11/24/2020 CBC w/ auto diff MCHC 33.5 g/dL 32.0-3 6.0 normal Not Available [facility] [address], [place], [address], 11/24/2020 14:35:17 11/20/2011/24/2020 CBC w/ auto diff RDW 12.0 % 11.0-1 5.0 normal Not Available [facility] [address], [place], [address], 11/24/2020 14:35:17 11/20/20 20 11/24/2020 CBC w/ auto diff platelet count 273 thous and/u L 140-40 0 normal Not Available [facility] [address], [place], [address], 11/24/2020 14:35:17 11/20/20 20 11/24/2020 CBC w/ auto diff MPV 9.0 fL 7.5-12 .5 normal Not Available [facility] [address], [place], [address], 11/24/2020 14:35:17 11/20/2011/24/2020 CBC w/ auto diff absolute neutrophils 3602 cells /uL 1500-7 800 normal Not Available [facility] [address], [place], [address], 11/24/2020 14:35:17 11/20/20 20 11/24/2020 CBC w/ auto diff absolute lymphocytes 1454 cells /uL 850-39 00 normal Not Available [facility] [address], [place], [address], 11/24/2020 14:35:17 11/20/20 20 11/24/2020 CBC w/ auto diff absolute monocytes 382 cells /uL 200-95 0 normal Not Available [facility] [address], [place], [address], 11/24/2020 14:35:17 11/20/2011/24/2020 CBC w/ auto diff absolute eosinophils 239 cells /uL 15-500 normal Not Available [facility] [address], [place], [address], 11/24/2020 14:35:17 11/20/20 20 11/24/2020 CBC w/ auto diff absolute basophils 23 cells /uL 0-200 normal Not Available [facility] [address], [place], [address], 11/24/2020 14:35:17 11/20/20 20 11/24/2020 CBC w/ auto diff neutrophils 63.2 % normal Not Available [facility] [place] [facility] [address], [place], [address], 11/24/2020 14:35:17 11/20/20 20 11/24/2020 CBC w/ auto diff lymphocytes 25.5 % normal Not Available [facility] [place] [facility] [address], [place], [address], 11/24/2020 14:35:17 11/20/20 20 11/24/2020 CBC w/ auto diff monocytes 6.7 % normal Not Available [facility] [place] [facility] [address], [place], [address], 11/24/2020 14:35:17 11/20/20 20 11/24/2020 CBC w/ auto diff eosinophils 4.2 % normal Not Available [facility] [place] [facility] [address], [place], [address], 11/24/2020 14:35:17 11/20/20 20 11/24/2020 CBC w/ auto diff basophils 0.4 % normal Not Available [facility] [place] [facility] [address], [place], [address], 11/24/2020 14:35:17 11/20/20 20 11/24/2020 GRISELDA (anti nucle ar antib odies ) scree n, ifa, serum GRISELDA screen, ifa NEGATI VE negati ve normal GRISELDA IFA is a first line scree n for detec ting the prese nce of up to appro ximat saniya 150 autoa ntibo dies in vario us autoi mmune disea ses. A negat melida GRISELDA IFA resul t sugge sts an GRISELDA-a ssoci ated autoi mmune disea se is not prese nt at this time, but is not defin itive . If there is high clini kassandra suspi cion for Sjogr en's syndr ome, testi ng for anti- SS-A/ Ro antib simone shoul d be consi dered . Anti- Kelly-1 antib simone shoul d be consi dered for clini paul suspe cted infla mmato ry myopa reema . AC-0: Negat melida Inter natio nal Conse nsus on GRISELDA Patte rns (http s://d oi.or g/10. 1515/ ccl- 2017- 0052) For addit ional infor terrell sanchez e refer to http: //[facility] yeyo ochoa.Que stDia gnost ics.c om/fa q/FAQ 177 (This link is being provi ded for infor sejal carranza/ educa eleuterio l purpo ses only. ) Not Available [facility] [place] [facility] [address], [place], [address], 11/24/2020 14:35:17 11/20/20 20 11/24/2020 rf (rheu matoi d facto r), serum rheumatoid factor <14 IU/mL <14 normal Not Available [facility] [place] [facility] [address], [place], [address], 11/24/2020 14:35:18 11/20/20 20 11/24/2020 prola ctin, serum prolactin 15.4 NG/mL normal Refer ence Range Femal es Non-p regna nt 3.0-3 0.0 Pregn ant 10.0- 209.0 Postm enopa usal 2.0-2 0.0 Not Available [facility] [place] [facility] [address], [place], [address], 11/24/2020 14:35:19 11/24/19 21 11/24/2020 colon cance r scree charissa, stool cologuard result reportable NEGATI VE not applic able A negat melida resul t indic ates a low likel ihood that a color ectal cance r (CRC) or an advan gabrielle adeno ma (april omato us polyp s with more advan gabrielle pre-m align ant featu res) is prese nt. [facility] e that a perso n with a negat melida Colog uard test has a color ectal cance r is less than 1 in 1500 (nega tive predi ctive value >99.9 %) or has an advan gabrielle adeno ma is less than 5.3% (nega tive predi ctive value 94.7% ). These data are based on a prosp ectiv e cross -sect ional scree charissa study of ,00 0 indiv [place]ual s [place] risk for color ectal cance r who were scree julia with both Colog uard and colon oscop y. (Ivan Briggs et al, N Engl J Med 2014; 370(1 4):12 86-12 97) The adia l value (refe rence range ) for this assay is negat melida. COLOG UARD RE-SC REEASHLEY NG RECOM MENDA TION: Perio dic routi ne color ectal cance r scree charissa is an impor tant part of preve ntive healt hcare for asymp tomat ic perso ns [place] risk for color ectal cance r. Follo wing a negat melida Colog uard resul t, the Ameri can Cance r Socie ty and U.S. Multi -Soci ety Task Force scree charissa guide lines recom mend a Colog uard re-sc reeni ng inter elma of 3 years . Refer ences : Ameri can Cance r Socie ty (ACS) . Color ectal cance r preve ntion and early detec tion. SUN Oneal: Ameri can Cance r Socie ty; [upda shannon 2016 Mar 14]. https ://lamin w.can cer.o rg/ca ncer/ colon -rect al-ca ncer/ detec tion- diagn osis- stagi ng/ac s-rec ommen datio ns.ht ml. Acces sed Augus t 2017; August MOJICA, Capo mace CR, Jaden GONZALEZ, Color ectal Cance r Scree charissa: Recom menda tions for Physi cians and Patie nts from the [place]. Multi -Soci ety Task Force on Color ectal Cance r Scremaggie Antonina carrington y 2017; 112:1 016-1 030. TEST TYPE: [place] site algor ithmi c erendira sis of stool DNA-b iomaria d kers with hemog lobin immun oassa y. Quant itati ve value s of indiv idual bioma rkers are not repor table and are not assoc iated with indiv idual bioma rker resul t refer ence range s. PRECA UTION S AND LIMIT ATION S: Colog uard is inten ded for color ectal cance r scree charissa of adult s of eithe r sex, 45 years or older , who are at [facility] for color ectal cance r (CRC) . Colog uard has been appro hunter for use by the [place]. FDA. Colog uard may produ ce a false negat melida or false posit melida resul t. A negat melida Colog uard test resul t does not guara ntee the absen ce of CRC or advan gabrielle adeno ma (pre- cance r). Patie nts with a negat melida Colog uard test resul t shoul d be advis ed to geovany nue parti cipat ing in a color ectal cance r scree charissa progr am. The scree charissa inter elma for Colog uard is curre ntly recom cristiana d at an inter elma of every 3 years by the Evaristo can Cance r Socie ty and U.S. Multi -Soci ety Task Force . A false posit melida resul t occur s when Colog uard produ kris a posit melida resul t, even thoug h a colon oscop y may not find color ectal cance r or preca ncero us polyp s. The perfo rmanc e of Colog uard has been estab lishe d in a cross secti onal study (i.e. , singl e point in time) of [facility] adult s aged 50-84 . Colog uard perfo rmanc e in patie nts ages 45 to 49 years was estim ated by sub-g roup erendira sis of near- age group s. Colog uard perfo rmanc e data in a 10,00 0 patie nt pivot al study using colon oscop y as the refer ence metho d can be acces sed at the [facility] locat ion: www.e xactl abs.c om/re sults . Addit ional descr iptio n of the Colog uard test proce ss, warni ngs and preca ution s can be found at www.c [address]onz[address] [facility] st.co m. Rx only. Not Available [facility] (Cologuard Orders Only) [address], [place], [address], 11/28/2020 12:02:34 12/01/19 21 12/03/2020 pap, LB + HPV mRNA E6/E7 clinical information: normal None given Not Available [facility] [address], [place], [address], 12/03/2020 14:51:00 12/01/19 21 12/03/2020 pap, LB + HPV mRNA E6/E7 LMP: normal None given Not Available [facility] [address], [place], [address], 12/03/2020 14:51:00 12/01/19 21 12/03/2020 pap, LB + HPV mRNA E6/E7 prev. Pap: normal None given Not Available [facility] [address], [place], [address], 12/03/2020 14:51:00 12/01/19 21 12/03/2020 pap, LB + HPV mRNA E6/E7 prev. BX: normal None given Not Available [facility] [address], [place], [address], 12/03/2020 14:51:00 12/01/19 21 12/03/2020 pap, LB + HPV mRNA E6/E7 source: normal None given Not Available [facility] [address], [place], [address], 12/03/2020 14:51:00 12/01/19 21 12/03/2020 pap, LB + HPV mRNA E6/E7 statement of adequacy: normal Satis facto ry for evalu ation . Prese nce or absen ce of endoc ervic al/tr ansfo rmati on zone compo nents canno t be repor shannon due to non- appli cable anato jack site, lack of knowl edge of exact sourc e, or the prese nce of atrop hy or other hormo nal cao es. Age and/o r menst rual statu s not provi ded Not Available [facility] [address], [place], [address], 12/03/2020 14:51:00 12/01/19 21 12/03/2020 pap, LB + HPV mRNA E6/E7 interpretati on/result: normal Negat melida for intra epith elial lesio n or stevo dexter . Not Available [facility] [address], [place], [address], 12/03/2020 14:51:00 12/01/19 21 12/03/2020 pap, LB + HPV mRNA E6/E7 comment: normal This Pap test has been evalu ated with compu ter lianet shannon techn ology . Not Available [facility] [address], [place], [address], 12/03/2020 14:51:00 12/01/19 21 12/03/2020 pap, LB + HPV mRNA E6/E7 cytotechnolo gist: normal MEM, CT( CP) CT scree charissa locat [place]: [facility] [place] [id number] [address], [place] [id number] Not Available [facility] [address], [place], [address], 12/03/2020 14:51:00 01/11/20 21 12/03/2020 pap, LB + HPV mRNA E6/E7 review cytotechnolo gist: normal [facility], CT( CP) CT scree charissa locat ion: [facility] [place] [id number] [address], [place] [id number] Not Available [facility] [address], [place], [address], 12/03/2020 14:51:00 12/01/19 21 12/03/2020 pap, LB + HPV mRNA E6/E7 comment EXPLA NATOR Y NOTE: The Pap is a scree charissa test for cervi kassandra cance r. It is not a diagn ostic test and is subje ct to false negat melida and false posit melida resul ts. It is most relia ble when a satis facto ry sampl e, regul katherine obtai julia, is submi tted with relev ant clini kassandra findi ngs and histo ry, and when the Pap resul t is evalu ated along with histo chay and curre nt clini kassandra infor matio n. Not Available [facility] [address], [place], [address], 12/03/2020 14:51:00 12/01/19 21 12/03/2020 pap, LB + HPV mRNA E6/E7 HPV MRNA E6/E7 Not Detect ed not detect ed normal This test was perfo rmed using the APTIM A HPV Assay ([employer] . This assay detec ts E6/E7 viral messe nger RNA (mRNA ) from 14 high- risk HPV types (16,1 8,31, 33,35 ,39,4 5,51, 52,56 ,58,5 9,66, 68). The erendira tical perfo rmanc e lachelle cteri stics of this assay have been deter mined by [facility]. The modif icati ons have not been clear ed or appro hunter by the FDA. This assay has been valid ated pursu ant to the CLIA regul ation s and is used for clini kassandra purpo ses. Not Available [facility] [address], [place], [address], 12/03/2020 14:51:00 12/01/19 21 12/05/2020 bacte rial vagin osis + vagin itis panel , vagin al chlamydia trachomatis RNA, tma, urogenital NOT DETECT ED normal Not Available [facility] [address], [place], [address], 12/05/2020 20:51:56 12/01/19 21 12/05/2020 bacte rial vagin osis + vagin itis panel , vagin al neisseria gonorrhoeae RNA, tma, urogenital NOT DETECT ED normal REFER ENCE RANGE : NOT DETEC SHANNON Metho dolog y: Trans cript ion Media shannon Ampli ficat ion (TMA) to detec t RNA. The erendira tical perfo rmanc e lachelle cteri stics of this assay , when used to test SureP ath(T M) speci mens have been deter mined by [facility] Infec tious Disea se. The modif icati ons have not been clear ed or appro hunter by the FDA. This assay has been valid ated pursu ant to the CLIA regul ation s and is used for clini kassandra purpo ses. For addit ional infor terrell sanchez e refer to https ://ed ucati on.qu matthew [employer]. com/f aq/FA Q154 (This link is being provi ded for infor sejal carranza/ educa eleuterio l purpo ses only. ) Not Available [facility] [address], [place], [address], 12/05/2020 20:51:56 12/01/19 21 12/05/2020 bacte rial vagin osis + vagin itis panel , vagin al lactobacillu s species 6.8 log_( cells /mL) normal Not Available [facility] [address], [place], [address], 12/05/2020 20:51:56 12/01/19 21 12/05/2020 bacte rial vagin osis + vagin itis panel , vagin al atopobium vaginae 6.8 log_( cells /mL) normal Not Available [facility] [address], [place], [address], 12/05/2020 20:51:56 12/01/19 21 12/05/2020 bacte rial vagin osis + vagin itis panel , vagin al megasphaera species NOT DETECT ED log_( cells /mL) normal Not Available [facility] [address], [place], [address], 12/05/2020 20:51:56 12/01/19 21 12/05/2020 bacte rial vagin osis + vagin itis panel , vagin al gardnerella vaginalis 7.3 log_( cells /mL) normal Not Available [facility] [address], [place], [address], 12/05/2020 20:51:56 12/01/19 21 12/05/2020 bacte rial vagin osis + vagin itis panel , vagin al bv category: EQUIVO KASSANDRA abnormal REFER ENCE RANGE : BV Categ ory: NOT SUPPO RTIVE Metho dolog y: Real- Time PCR NOT SUPPO RTIVE OF BV: The patte rn of resul ts is not suppo rtive of a diagn osis of BV: 1) Prese nce of Lacto bacil fei spp., G. vagin abigail level s less than 6.0 log cells /mL, and absen ce of A. vagin ae and Megas phaer a spp; or 2) Absen ce of all targe shannon organ isms; or 3) Absen ce of Lacto bacil fei spp. plus G. vagin abigail detec shannon at level s less than 6.0 log cells /mL and absen ce of A. vagin ae and Megas phaer a spp. EQUIV OCAL FOR BV: The patte rn of resul ts is neith er suppo rtive nor not suppo rtive of a diagn osis of BV. The patie nt may be in trans ition into or out of BV: Prese nce of Lacto bacil fei spp. plus G. vagin abigail (grea ter or equal to 6.0 log cells /mL) and/o r one of the other BV-as socia shannon patho gens. SUPPO RTIVE OF BV: The patte rn of srinivasa ts is suppo rtive of a diagn osis of BV: Absen ce of Lacto bacil fei spp. and prese nce of G. vagin abigail great er than or equal to 6.0 log cells /mL and/o r one or both of the other BV-as socia shannon patho gens. Brit ntrat ion for Lacto bacil li (L. acido philu s/cri spatu s, L. jense dillon) are colle ctive ly repor shannon under the term Lact obaci llus spp. , as these speci es are among the perox julián produ cing Lacto bacil li thoug ht to be prote ctive again st bacte rial vagin osis. Atopo bium vagin ae, Megas phaer a spp., and Gardn erell a (grea ter than 6.0 log cells /mL) have been assoc iated with vagin osis when prese nt in the absen ce of perox idase produ cing Lacto bacil li. This test was devel oped and its erendira tical perfo rmanc e lachelle cteri stics have been deter mined by [facility] Infec tious Disea se. It has not been clear ed or appro hunter by FDA. This assay has been valid ated pursu ant to the CLIA regul ation s and is used for clini kassandra purpo ses. Not Available [facility] [address], [place], [address], 12/05/2020 20:51:56 12/01/19 21 12/05/2020 bacte rial vagin osis + vagin itis panel , vagin al sureswab(R) trichomonas vaginalis RNA, ql, tma DETECT ED abnormal REFER ENCE RANGE : NOT DETEC SHANNON Metho dolog y: Trans cript ion Media shannon Ampli ficat ion (TMA) For addit ional infor terrell sanchez e refer to http: //[facility] yeyo ochoa.que stdia gnost ics.c om/fa q/Tri chomo nastm a (This link is being provi ded for infor sejal nal/e ducat ional purpo ses only. ) Not Available [facility] [address], [place], [address], 12/05/2020 20:51:56 12/01/19 21 12/05/2020 bacte rial vagin osis + vagin itis panel , vagin al C. albicans, DNA NOT DETECT ED normal Not Available [facility] [address], [place], [address], 12/05/2020 20:51:56 12/01/19 21 12/05/2020 bacte rial vagin osis + vagin itis panel , vagin al C. glabrata, DNA NOT DETECT ED normal Not Available [facility] [address], [place], [address], 12/05/2020 20:51:56 12/01/19 21 12/05/2020 bacte rial vagin osis + vagin itis panel , vagin al C. tropicalis, DNA NOT DETECT ED normal Not Available [facility] [address], [place], [address], 12/05/2020 20:51:56 12/01/19 21 12/05/2020 bacte rial vagin osis + vagin itis panel , vagin al C. parapsilosis , DNA DETECT ED abnormal REFER ENCE RANGE : NOT DETEC SHANNON Metho dolog y: Real- Time PCR This test was devel oped and its erendira tical perfo rmanc e lachelle cteri stics have been deter mined by [facility] Infec tious Disea se. It has not been clear ed or appro hunter by FDA. This assay has been valid ated pursu ant to the CLIA regul ation s and is used for clini kassandra purpo ses. Not Available [facility] [address], [place], [address], 12/05/2020 20:51:56 01/07/2001/11/2021 bacte rial vagin osis + vagin itis panel , vagin al chlamydia trachomatis RNA, tma, urogenital NOT DETECT ED normal Not Available [facility] [address], [place], [address], 01/11/2021 00:52:07 01/07/2001/11/2021 bacte rial vagin osis + vagin itis panel , vagin al neisseria gonorrhoeae RNA, tma, urogenital NOT DETECT ED normal REFER ENCE RANGE : NOT DETEC SHANNON Metho dolog y: Trans cript ion Media shannon Ampli ficat ion (TMA) to detec t RNA. The erendira tical perfo rmanc e lachelle cteri stics of this assay , when used to test SureP ath(T M) speci mens have been deter mined by [facility] Infec tious Disea se. The modif icati ons have not been clear ed or appro hunter by the FDA. This assay has been valid ated pursu ant to the CLIA regul ation s and is used for clini kassandra purpo ses. For addit ional infor terrell sanchez e refer to https ://ed ucati on.qu matthew [employer]. com/f aq/FA Q154 (This link is being provi ded for infor sejal carranza/ educa eleuterio l purpo ses only. ) Not Available [facility] [address], [place], [address], 01/11/2021 00:52:07 01/07/2001/11/2021 bacte rial vagin osis + vagin itis panel , vagin al lactobacillu s species 7.6 log_( cells /mL) normal Not Available [facility] [address], [place], [address], 01/11/2021 00:52:07 01/07/2001/11/2021 bacte rial vagin osis + vagin itis panel , vagin al atopobium vaginae NOT DETECT ED log_( cells /mL) normal Not Available [facility] [address], [place], [address], 01/11/2021 00:52:07 01/07/2001/11/2021 bacte rial vagin osis + vagin itis panel , vagin al megasphaera species NOT DETECT ED log_( cells /mL) normal Not Available [facility] [address], [place], [address], 01/11/2021 00:52:07 01/07/2001/11/2021 bacte rial vagin osis + vagin itis panel , vagin al gardnerella vaginalis 6.1 log_( cells /mL) normal Not Available [facility] [address], [place], [address], 01/11/2021 00:52:07 01/07/2001/11/2021 bacte rial vagin osis + vagin itis panel , vagin al bv category: EQUIVO KASSANDRA abnormal REFER ENCE RANGE : BV Categ ory: NOT SUPPO RTIVE Metho dolog y: Real- Time PCR NOT SUPPO RTIVE OF BV: The patte rn of resul ts is not suppo rtive of a diagn osis of BV: 1) Prese nce of Lacto bacil fei spp., G. vagin abigail level s less than 6.0 log cells /mL, and absen ce of A. vagin ae and Megas phaer a spp; or 2) Absen ce of all targe shannon organ isms; or 3) Absen ce of Lacto bacil fei spp. plus G. vagin abigail detec shannon at level s less than 6.0 log cells /mL and absen ce of A. vagin ae and Megas phaer a spp. EQUIV OCAL FOR BV: The patte rn of resul ts is neith er suppo rtive nor not suppo rtive of a diagn osis of BV. The patie nt may be in trans ition into or out of BV: Prese nce of Lacto bacil fei spp. plus G. vagin abigail (grea ter or equal to 6.0 log cells /mL) and/o r one of the other BV-as socia shannon patho gens. SUPPO RTIVE OF BV: The patte rn of resul ts is suppo rtive of a diagn osis of BV: Absen ce of Lacto bacil fei spp. and prese nce of G. vagin abigail great er than or equal to 6.0 log cells /mL and/o r one or both of the other BV-as socia shannon patho gens. Brit ntrat ion for Lacto bacil li (L. acido philu s/cri spatu s, L. jense dillon) are colle ctive ly repor shannon under the term Lact obaci llus spp. , as these speci es are among the perox julián produ cing Lacto bacil li thoug ht to be prote ctive again st bacte rial vagin osis. Atopo bium vagin ae, Megas phaer a spp., and Gardn erell a (grea ter than 6.0 log cells /mL) have been assoc iated with vagin osis when prese nt in the absen ce of perox idase produ cing Lacto bacil li. This test was devel oped and its erendira tical perfo rmanc e lachelle cteri stics have been deter mined by [facility] Infec tious Disea se. It has not been clear ed or appro hunter by FDA. This assay has been valid ated pursu ant to the CLIA regul ation s and is used for clini kassandra purpo ses. Not Available [facility] [address], [place], [address], 01/11/2021 00:52:07 01/07/20 21 01/11/2021 bacte rial vagin osis + vagin itis panel , vagin al sureswab(R) trichomonas vaginalis RNA, ql, tma NOT DETECT ED normal REFER ENCE RANGE : NOT DETEC SHANNON Metho dolog y: Trans cript ion Media shannon Ampli ficat ion (TMA) For addit ional infor terrell sanchez e refer to http: //[facility] yeyo ocoha.que stdia gnost ics.c om/fa q/Tri chomo nastm a (This link is being provi ded for infor sejal nal/e ducat ional purpo ses only. ) Not Available [facility] [address], [place], [address], 01/11/2021 00:52:07 01/07/20 21 01/11/2021 bacte rial vagin osis + vagin itis panel , vagin al C. albicans, DNA NOT DETECT ED normal Not Available [facility] [address], [place], [address], 01/11/2021 00:52:07 01/07/20 21 01/11/2021 bacte rial vagin osis + vagin itis panel , vagin al C. glabrata, DNA NOT DETECT ED normal Not Available [facility] [address], [place], [address], 01/11/2021 00:52:07 01/07/20 21 01/11/2021 bacte rial vagin osis + vagin itis panel , vagin al C. tropicalis, DNA NOT DETECT ED normal Not Available [facility] [address], [place], [address], 01/11/2021 00:52:07 01/07/20 21 01/11/2021 bacte rial vagin osis + vagin itis panel , vagin al C. parapsilosis , DNA NOT DETECT ED normal REFER ENCE RANGE : NOT DETEC SHANNON Metho dolog y: Real- Time PCR This test was devel oped and its erendira tical perfo rmanc e lachelle cteri stics have been deter mined by [facility] Infec tious Disea se. It has not been clear ed or appro hunter by FDA. This assay has been valid ated pursu ant to the CLIA regul ation s and is used for clini kassandra purpo ses. Not Available [facility] [address], [place], [address], 01/11/2021 00:52:07 01/07/20 21 01/07/2021 urina lysis , dipst ick Color Yellow Not Available In-Office Order Internal Use Only DO Not Attach Compendium DO Not Attach Compendium, Do Not Delete/merge, [id number] 01/07/2021 12:06:07 01/07/20 21 01/07/2021 urina lysis , dipst ick Appearance Cloudy Not Available In-Offi ce Order Internal Use Only DO Not Attach Compendium DO Not Attach Compendium, Do Not Delete/merge, [id number] 01/07/2021 12:06:07 01/07/20 21 01/07/2021 urina lysis , dipst ick Leukocytes Negati ve Not Available In-Office Order Internal Use Only DO Not Attach Compendium DO Not Attach Compendium, Do Not Delete/merge, [id number] 01/07/2021 12:06:07 01/07/20 21 01/07/2021 urina lysis , dipst ick Nitrite Negati ve Not Available In-Office Order Internal Use Only DO Not Attach Compendium DO Not Attach Compendium, Do Not Delete/merge, [id number] 01/07/2021 12:06:07 01/07/20 21 01/07/2021 urina lysis , dipst ick Urobilinogen 0.2 Not Available In-Of fice Order Internal Use Only DO Not Attach Compendium DO Not Attach Compendium, Do Not Delete/merge, 01/07/2021 12:06:07 01/07/20 21 01/07/2021 urina lysis , dipst ick Protein Negati ve Not Available In-Office Order Internal Use Only DO Not Attach Compendium DO Not Attach Compendium, Do Not Delete/merge, 01/07/2021 12:06:07 01/07/20 21 01/07/2021 urina lysis , dipst ick PH 7.0 Not Available In-Office Order Internal Use Only DO Not Attach Compendium DO Not Attach Compendium, Do Not Delete/merge, 01/07/2021 12:06:07 01/07/20 21 01/07/2021 urina lysis , dipst ick Blood Small Not Available In-Office Order Internal Use Only DO Not Attach Compendium DO Not Attach Compendium, Do Not Delete/merge, 01/07/2021 12:06:07 01/07/20 21 01/07/2021 urina lysis , dipst ick Specific [place] 1.020 Not Available In-Off ice Order Internal Use Only DO Not Attach Compendium DO Not Attach Compendium, Do Not Delete/merge, 01/07/2021 12:06:07 01/07/20 21 01/07/2021 urina lysis , dipst ick Ketone Negati ve Not Available In-Office Order Internal Use Only DO Not Attach Compendium DO Not Attach Compendium, Do Not Delete/merge, 01/07/2021 12:06:07 01/07/20 21 01/07/2021 urina lysis , dipst ick Bilirubin Negati ve Not Available In-Office Order Internal Use Only DO Not Attach Compendium DO Not Attach Compendium, Do Not Delete/merge, 01/07/2021 12:06:07 01/07/20 21 01/07/2021 urina lysis , dipst ick Glucose Negati ve Not Available In-Office Order Internal Use Only DO Not Attach Compendium DO Not Attach Compendium, Do Not Delete/merge, 01/07/2021 12:06:07 01/07/20 21 01/07/2021 urina lysis , dipst ick Lot Number [id number] Not Available In-Offi ce Order Internal Use Only DO Not Attach Compendium DO Not Attach Compendium, Do Not Delete/merge, [id number] 01/07/2021 12:06:07 01/07/20 21 01/07/2021 urina lysis , dipst ick Expiration Date 2020 Not Available In-Office Order Internal Use Only DO Not Attach Compendium DO Not Attach Compendium, Do Not Delete/merge, [id number] 01/07/2021 12:06:07 05/16/20 20 05/16/2020 MAMMO , unila teral , left and US, breas t, left No observ ation record ed. [address] [employer] Scheduling [address], [place], [address], 05/20/2020 11:35:06 05/16/20 20 05/16/2020 US, patti t No observ ation record ed. [address] Centralized Scheduling [address], [place], [address], 05/20/2020 11:32:54 08/04/20 21 07/31/2021 MAMMO , scree charissa, bilat eral No observ ation record ed. [email or web address] [facility] ([address] [facility] [address], [address], 08/05/2021 09:25:57 08/26/20 21 08/21/2021 MRI, breas t, bilat eral, w/wo contr ast No observ ation record ed. [facility] ([address] [place], [address], 08/27/2021 07:59:54 Result Notes None recorded. Problems Name Problem SNOMED Code Status Onset Date Resolution Date Notes Provider Name and Address Organization Details Recorded Time Depressive disorder 78279407 Active 2018 M[facility] 9 11:26:18 Anxiety disorder 031671078 Active 2018 Rose abbott [facility] 9 11:26:25 Bipolar disorder 16758019 [facility] 11:26:32 Acid reflux 414946861 Active 2018 [facility] 9 11:27:06 M ni re's disease 48878057 Active 2018 [facility] 9 11:32:56 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 Procedures Surgical History Date Name Laterality Status Provider Name and Address Organization Details Recorded Time 021 TeleHealth Encounter completed Shakila Genao [facility] 05/29/2021 16:49:29 021 Patient Education Assessment completed Lenin Castillo [facility] 01/07/2021 12:05:44 021 Patient Education Assessment completed Rose Casas [facility] 12/01/2020 09:36:53 020 AWV completed Rose Casas [facility] 11/10/2020 11:47:32 019 ULTRASOUND GUIDED CORE BIOPSY (SURG) completed Aruna Rodrigues [facility] 10/31/2019 08:21:04 019 ULTRASOUND GUIDED CORE BIOPSY (SURG) completed Not Available [facility] 05/30/2020 15:51:19 Screening Checklist for Contraindications for Inactivated Injectable Influenza Vaccine completed Rose Casas [facility] 09/13/2019 12:22:52 AWV completed Shakila Genao [facility] 09/16/2019 06:24:49 Date of Last Pap Smear [facility]13[facility] 11:35:44 [facility] 09/13/2019 11:34:44 [facility]lect[facility] 09/13/2019 11:34:54 Endometrial Ablation [facility] 09/13/2019 11:35:31 Imaging Results None recorded. Procedure Notes None recorded. Medical Equipment None Reported. Medications Name Sig Start Date Stop Date Status Note LastModified by Organization Details LastModified Time lamotrigine 150 mg tablet TAKE THREE TABLETS BY MOUTH ONE TIME DAILY 06/01 completed Not Available Not Available Not Available citalopram 40 mg tablet TAKE ONE TABLET BY MOUTH ONE TIME DAILY active Not Available Not Available No t Available fluconazole 150 mg tablet TAKE ONE TABLET BY MOUTH A SINGLE ORAL DOSE 01/07 completed Not Available Not Available Not Available Ativan 1 mg tablet Take 1 tablet every day by oral route as needed. active Not Available Not Available No t Available Zithromax Z-Luis 250 mg tablet TAKE 2 TABLETS (500 MG) BY ORAL ROUTE ONCE DAILY FOR 1 DAY THEN 1 TABLET (250 MG) BY ORAL ROUTE ONCE DAILY FOR 4 DAYS 11/10 completed Not Available Not Available Not Available metronidazo le 500 mg tablet TAKE ONE TABLET BY MOUTH TWICE A DAY FOR 7 DAYS 05/29 completed Not Available Not Available Not Available aspirin 81 mg tablet,britney yed release Take 1 tablet every day by oral route. active Not Available Not Available No t Available Macrobid 100 mg capsule Take 1 capsule every 12 hours by oral route for 5 days. 11/10 completed Not Available Not Available Not Available Tessalon Perles 100 mg capsule Take 1 capsule 3 times a day by oral route for 20 days. 11/10 completed Not Available Not Available Not Available lorazepam 2 mg tablet TAKE ONE AND ONE-HALF TABLETS BY MOUTH EVERY NIGHT AT BEDTIME 06/01 completed Not Available Not Available Not Available hydrocortis one 2.5 % topical cream APPLY TO CHIN AROUND MOUTH TWO TIMES A DAY FOR 2 WEEKS 06/01 completed Not Available Not Available Not Available doxycycline hyclate 100 mg tablet TAKE ONE TABLET BY MOUTH TWICE A DAY FOR 7 DAYS 11/10 completed Not Available Not Available Not Available loratadine 10 mg tablet Take 1 tablet every day by oral route for 30 days. 2018 active Not Available Not Available Not Avai lable naproxen 500 mg tablet TAKE ONE TABLET BY MOUTH TWICE A DAY NEEDED 06/01 completed Not Available Not Available Not Available bupropion HCl SR 200 mg tablet,12 hr sustained-r elease TAKE ONE TABLET BY MOUTH EVERY MORNING active Not Available Not Available No t Available cyclobenzap rine 5 mg tablet TAKE ONE TABLET BY MOUTH THREE TIMES A DAY NEEDED 06/01 completed Not Available Not Available Not Available Multivitami n 50 Plus tablet Take 1 tablet every day by oral route in the morning. active Not Available Not Available No t Available omeprazole 20 mg tablet,britney yed release Take 1 tablet every day by oral route. 01/07 completed Not Available Not Available Not Available Calcium 500 + D (D3) active Not Available Not Available Not Available Probiotic 01/07 completed Not Available Not Available Not Available loratadine 10 mg capsule Take 1 capsule every day by oral route in the morning. 11/10 completed Not Available Not Available Not Available Lamictal XR 300 mg tablet,exte nded release Take 1 tablet every day by oral route in the morning. active Not Available Not Available No t Available Nurtec ODT 75 mg disintegrat ing tablet DISSOLVE ONE TABLET BY MOUTH ONE TIME DAILY AT ONSET OF MIGRAINE, MAY REPEAT IN 2 HOURS IF NEEDED active Not Available Not Available No t Available Vitals Date Recorded Body height Body mass index (BMI) Body weight Heart rate Respiratory rate Oxygen saturation Oxygen saturation in Arterial blood by Pulse oximetry Body temperature Systolic blood pressure Diastolic blood pressure Provider Name and Address Organization Details Last Updated DateTime 1 172.09 cm 29.7 kg/m2 08061.4 8 g 90 /min 20 /min 98 % 98 % 98.6 [degF] 127 mm[Hg] 84 mm[Hg] Rose Casas [facility] 1 09:32:59 Date Recorded Body height Body mass index (BMI) Body weight Respiratory rate Body temperature Oxygen saturation Oxygen saturation in Arterial blood by Pulse oximetry Heart rate Systolic blood pressure Diastolic blood pressure Provider Name and Address Organization Details Last Updated DateTime 1 172.09 cm 29.3 kg/m2 15063.8 6 g 18 /min 98.2 [degF] 97 % 97 % 99 /min 118 mm[Hg] 82 mm[Hg] Lenin Castellanoaint [facility] 1 12:00:06 Date Recorded Body height Body mass index (BMI) Body weight Heart rate Respiratory rate Body temperature Oxygen saturation Oxygen saturation in Arterial blood by Pulse oximetry Systolic blood pressure Diastolic blood pressure Provider Name and Address Organization Details Last Updated DateTime 0 172.09 cm 27 kg/m2 66645.2 6 g 101 /min 20 /min 98.4 [degF] 97 % 97 % 135 mm[Hg] 88 mm[Hg] Valentine Rodrigues [facility] 0 12:07:49 Date Recorded Body height Body temperature Heart rate Respiratory rate Oxygen saturation Oxygen saturation in Arterial blood by Pulse oximetry Body mass index (BMI) Body weight Systolic blood pressure Diastolic blood pressure Provider Name and Address Organization Details Last Updated DateTime 0 172.09 cm 99.5 [degF] 102 /min 20 /min 98 % 98 % 29.1 kg/m2 79530.5 5 g 126 mm[Hg] 85 mm[Hg] Rose Casas [facility] 0 12:03:14 Social History Question Answer Notes LastModified by Organizat ion Details LastModified Time Tobacco Smoking Status Current Every Day Smoker Rose Casas [facility] 09/13/2019 11:30:18 Do You Have An Advance Directive? No Information not available 09/13/2019 What Is Your Level Of Caffeine Consumption? Moderate Information not available 09/13/2019 How Much Tobacco Do You Chew? None Information not available 09/13/2019 What Is Your Code Status? Full Code Information not available 09/13/2019 What Type Of Diet Are You Following? REGULAR Information not available 09/13/2019 Which Illicit Or Recreational Drugs Have You Used? Denies Information not available 09/13/2019 Education 12 Information no t available 09/13/2019 Swimming/diving Yes Informati on not available 09/13/2019 How Many Days In The Past Year Have You Had A Heavy Drinking Consumption (4+ Female, 5+ Male)? 0 Information no t available 09/13/2019 Hard Of Hearing Or Deaf In One Or Both Ears? Yes Information not available 09/13/2019 Legally Blind In One Or Both Eyes? No Information no t available 09/13/2019 Live Alone Or With Others? Alone Information not available 09/13/2019 In The Last 14 Days Have You Traveled? No Information not available 11/10/2020 Have You Been Around Or Visited With Anyone (friends, Neighbors, Or Family) Who Have Traveled In The Past 14 Days? No Information not available 11/10/2020 Have You Been Tested For COVID19? Yes Information not available 11/10/2020 If Yes, When? 11/09/2020 Information not available 01/07/2021 If Yes, Did You Have Symptoms When You Were Tested? No Information not available 11/10/2020 If Yes, What Was The Result? Negative Information not available 11/10/2020 Have You Had Close Contact With Someone Who Has Been Tested For COVID19? No Information not available 11/10/2020 Do You Have Any Symptoms Now Or In The Past Two Weeks? No Information not available 11/10/2020 If Yes, WHERE? [facility] Informatio n not available 01/07/2021 If Yes, What Was The Result? Negative Information not available 01/07/2021 What Was The Date Of Your Most Recent Tobacco Screening? 01/07/2021 Information not available 01/07/2021 How Many Children Do You Have? 0 Information not available 09/13/2019 Do You Use Protection During Sex? No Information not available 09/13/2019 Seat Belts Used Routinely Yes Information not available 09/13/2019 Are You Sexually Active? Yes Information not available 09/13/2019 Smoke Alarm In Home Yes Information not available 09/13/2019 At What Age Did You Start Smoking Tobacco? 14 Information not available 09/13/2019 Are You Passively Exposed To Smoke? No Information no t available 09/13/2019 How Much Tobacco Do You Smoke? 1 PPD Information not available 09/13/2019 General Stress Level High Information not available 09/13/2019 Do You Use Sunscreen Routinely? Yes Information not available 09/13/2019 How Many Years Have You Smoked Tobacco? 35 Information not available 09/13/2019 Sex: Female Functional Status Question Answer Note LastModified by Organizat ion Details LastModified Time What is your level of alcohol consumption? None Information not available 09/13/2019 Do you or have you ever used smokeless tobacco? Never used smokeless tobacco Information not available 09/13/2019 Are you currently employed? No Information not available 11/10/2020 Are you able to care for yourself? Yes Information not available 09/13/2019 What is your occupation? Unemployed Information not available 11/10/2020 Do you or have you ever used e-cigarettes or vape? Never used electronic cigarettes Information not available 09/13/2019 What is your exercise level? Occasional Information not available 09/13/2019 Mental Status None recorded. Family History Relationship Description Onset Age of this Age Resolved Age Notes LastModified by Organization Details LastModified Time Mother Hypertensive disorder Not available 2018 11:27:26 Mother Depressive disorder Not available 2018 11:27:39 Mother Anxiety disorder Not available 2018 11:27:48 Mother Osteoarthrit is of finger joint Not available 2018 11:29:44 Mother Implantation of joint prosthesis Not available 09/13 11:30:04 Father Hypertensive disorder Not available 2018 11:27:55 Father Depressive disorder Not available 2018 11:28:01 Father Anxiety disorder Not available 2018 11:28:14 Father Orthostatic hypotension Not available 08/22 11:28:30 Father Carcinoma of prostate Not available 2018 11:28:49 Father Implantation of joint prosthesis Not available 09/13 11:30:04 Maternal Grandmother Malignant neoplasm of uterus Not available 2018 11:29:02 Maternal Grandmother Rheumatoid arthritis 84 Not available 2018 11:29:24 Medical History No medical history recorded. Gynecological History Statement/Question Response Abnormal Pap Y Date of LMP STIs/STDs Y HPV Vaccine N Most Recent Mammogram Current Control Method Hysterectom y Age at Menarche 11 If Post Menopausal, Age at Menopause 40 Date of Last Colonoscopy Most Recent Bone Density Sexually Active? Y Date of Last Pap Smear 09/06/2019 Sexual Problems? N LMP Approximate Desired Control Method None Hormone Replacement Therapy N Obstetrics History GPAL:G 3 P 0 0 3 0 Type Value Spontaneous 2 Living 0 Ectopics 1 Total 3 Immunizations Vaccine Type Date Status Note Provider Nam e and Address Organization Details Recorded Time Influenza, recombinant, quadrivalent, PF 09/13/2019 completed Not Available [facility] 0 02:22:18 Past Encounters Encounter ID Performer Location Encounter Start Date Encounter Closed Date Diagnosis/Indication Diagnosis SNOMED-CT Code Diagnosis ICD10 Code Diagnosis Note [id number] Shakila Genao APRN [facility] [address] [place] [address] 09/13/2019 10:54:12 09/13/2019 12:34:14 Adult health examination 586595498 Z00.00 Physical examinatio n within normal range Screening for malignant neoplasm of colon 063428625 Z12.11 colon cancer screening Polycystic ovary syndrome 745422463 E28.2 history of polycystic ovarian syndrome Infective hepatitis immunization 510678211 Z23 tests per the patient 's request Screening for malignant neoplasm of breast 742895354 Z12.39 recent mammogram per patient. obtain medical record. Administra tion of influenza vaccine 37004800 Z23 Administra tion of diphtheria, pertussis, and tetanus vaccine 432672685 Z23 Active or passive immunization 371408635 Z23 Screening for malignant neoplasm of cervix 670171744 Z12.4 [facility] . HIV screening 636964996 Z11.4 HIV screening. Patient was informed that an HIV test is recommende d for all patients between 13 and 64 years of age. An HIV test is a test to determine if an individual is infected with the virus which causes AIDS. On the HIV rapid test a positive result demonstrat es a strong possibilit y that you are infected with the virus, but a blood test will be needed to confirm this result. If the results are negative you either do not have the virus or may need to repeat the test in the near future. Testing is voluntary. Test results are confidenti al but all confirmed positive test results are reported to the [facility] . Anonymous testing is available at the [facility] Department which exempts the need to report. Patient was send to lab to get blood drawn. Screening - NAD 64430961 3 Z13.9 Patient's screening positive. Currently she is not willing to switch psych provider. Patient instructed to follow up with her current psych provider. [id number] Shakila Genao [facility]N [facility] [address] [place] [address] 10/04/2019 11:54:27 10/04/2019 12:39:11 Adult health examination 887260800 Z00.00 Physical examinatio n within normal range10/04: All blood work results discussed with the patient. Screening for malignant neoplasm of colon 112303777 Z12.11 colon cancer screening. 10/04/2019 : not detected. Polycystic ovary syndrome 993289040 E28.2 history of polycystic ovarian syndrome.1 12/04/2018: FSH and estradiol normal. HIV screening 763576388 Z11.4 HIV screening. 10/04/2019 : non reactive Hyperlipidemia 94541900 E78.5 lipid panel abnormal, result discussed with patient and patient instructed to follow cholestero l diet. Hypoechoic nodule 706203 7204 76871 R93.89 Mammograph y abnormal: According to mammo result; Left breast showed hypoechoic lesion at the 12:00 position, 2 cm from the nipple correspoin ding to the clinical palpable mass measuring 0.9 x 0.7 x 0.7 cm. - Simple cyst at the 12:00 position of the left breast measuring 1X0.7X 1.1 CM10/04/20 19: Biopsy pathology report is incomplete . [id number] Shakila Genao APRN [facility] [address] [place] [address] 10/25/2019 08:37:40 10/25/2019 09:48:50 Upper respiratory infection 94106412 J06.9 Patient instructed to increase water intake and take antibiotic as prescribed . Cough 45519321 R05 cough medication order as needed. Body mass index 25-29 - overweight 337949392 E66.3 Z68.26 Lifestyle changes discussed with the patient. [id number] Shakila Genao APRN [facility] [address] [facility] [address] [place] [address] 02/06/2020 11:55:12 02/06/2020 12:51:07 Influenza-like symptoms 124852463 R68.89 flu symptoms reported, rapid flu done in office, specimen negative for flu. Result discussed with patient. Pain in throat 246733293 R07.0 pain in throat, rapid strep done in office, specimen negative for strep Upper resp iratory infection 53538105 J06.9 Patient instructed to increase water intake and take antibiotic as prescribed and increase water intake. Cough 83718539 R05 cough medication order as needed. Body mass index 25-29 - overweight 423957663 E66.3 Z68.27 Lifestyle changes discussed with the patient. [id number] Shakila Genao APRN [facility] [address] [place] [address] 11/10/2020 11:30:30 11/10/2020 12:49:51 Fatigue 56578757 R53.83 GRISELDA screen, ifa, w/refl titer and pattern; sed rate by modified westergren and rheumatoid factor next visit. Hyperlipidemia 40988124 E78.5 lipid panel abnormal, result discussed with patient and patient instructed to follow cholestero l diet. Screening for malignant neoplasm of colon 637961693 Z12.11 colon cancer screening Polycystic ovary syndrome 829344802 E28.2 history of polycystic ovary syndrome and reports having hot flashes Thyroid di sorder screening 648164503 Z13.29 screening for thyroid Low grade pyrexia 640701 008 R50.9 Patient instructed to monitor temperatur e at home Suspected COVID-19 48185 4004 Z03.89 rapid SARS CoV 2 Ag, QL IA, done in office, result negative, discussed with patient. Viral disease 29274329 B 34.9 Unspecific viral infection noted, low grade fever and tachycardi a. Rapid covid-19 test done in office and it was negative. Patient instructed to increase water intake and take vitamin C. No annual physical done tody. Patient will be reschedule for physical. HIV screen ing declined 5086511920 75683 Z53.20 [id number] Shakila Genao APRN [facility] [address] [place] [address] 12/01/2020 08:50:52 12/01/2020 10:33:22 Fatigue 17259503 R53.83 GRISELDA screen, ifa, w/refl titer and pattern; sed rate by modified westergren and rheumatoid factor next visit.12/01: tests are normal, result discussed with patient. Hyperlipidemia 65200885 E78.5 lipid panel abnormal, result discussed with patient and patient instructed to follow cholestero l diet. Screening for malignant neoplasm of colon 973373118 Z12.11 colon cancer screening. Non reactive Polycystic ovary syndrome 214280142 E28.2 history of polycystic ovary syndrome and reports having hot flashes11/21: hormonal testing results are negative. Adult heal th examination 137074836 Z00.00 Physical examinatio n within normal range and all blood work results discussed with the patient. Mental [facility] screening 351365286 Z13.39 Positive, Body mass index 25-29 - overweight 933391729 E66.3 Z68.29 Lifestyle changes discussed with the patient. Depressive disorder 6848 9007 F32.9 Patient reports of getting treatment for depression by a psychiatri st, telehealth visit, patient agrees to be evaluated by our psychologi st. Screening for malignant neoplasm of cervix 780974719 Z12.4 [facility] . Vaginal discharge 475986 006 N89.8 sureswab(R ), vaginosis/ vaginitis plus for further evaluation . [id number] Pretty Arriola MORGAN [facility] [address] [place] [address] 01/07/2021 11:48:41 01/07/2021 13:17:11 Low back pain 271799902 M54.5 Pruritus of vagina 35330 003 L29.3 [id number] Shakila Genao APRN [facility] [address] [place] [address] 05/29/2021 08:13:40 05/29/2021 08:47:53 Dental caries 83274293 K02.9 Patient is currently taking aspirin 81 mg PO daily. Patient instructed to hold aspirin 3 days before dental procedure. Patient has hyperlipid emia, and currently taking psychotrop ic drugs throught her psychiatri c provider; otherwise, patient is cleared for dental procedure, discussed with patient to hold aspirin 81 mg for about 3 to 5 days. Mixed hyperlipidemia 267 665240 E78.2 patient is not currently on cholestero l treatment, will continue to monitor. Health Concerns Section Related Observation LastModified by Organization Detai ls LastModified Time None Recorded Concern Status LastModified by Organization Details LastModified Time None Recorded Advance Directives Directive N: Payers Insurance Date Sequence Insurance Name Policy Number Policy Noel Covered Member ID Noel Member ID Guarantor Name 02/15/2022 1 [place] [id number] Roz L Amy [id number] Roz Amy 01/06/2022 1 [place] [id number] Roz L Amy [id number] Roz Amy Notes Date Note Type Note Provider Name and Address Organization Details Recorded Time 02/06/2020 text/html 50 year old male patient is here complaint of sore throat for the past 5-6 days. Left ear pain for the past 2 days; patient reports body aches, and low grade fever. Patient denies CP, AVILA, fevers, chills, SOB, abdominal pain, nausea, vomiting, diarrhea, constipation. Shakila Genao [facility] 02/08/2020 16:18:21 11/10/2020 text/html 50 year old femnamita zamora patient is here for annual physical and pap smear. Patient states she is is doing well, patient reports of having fatigue for a long time, otherwise, she doesn't feel sick, patient denies exposure of someone with covid-19. Patient denies cough, running nose, body aches, CP, AVILA, fevers, chills, SOB, abdominal pain, nausea, vomiting, diarrhea, constipation. Shakila abbott [facility] 11/12/2020 09:55:30 12/01/2020 text/html 50 year old guy zamora patient is here for annual physical and pap smear. Patient states she is is doing well. Patient denies, CP, AVILA, fevers, chills, SOB, abdominal pain, nausea, vomiting, diarrhea or constipation. Shakila Genao [facility] 12/01/2020 14:34:11 01/07/2021 text/html Ms Reyes is seen today with complaints of vaginal itching, burning, right side back pain. Reports back pain started yesterday after lifting cat litter. No radiation. Was recently treated for BV and trich. Pretty Arriola [facility] 01/07/2021 12:21:35 05/29/2021 text/html Telehealth Visit : 51 year old female patient who is requesting clearance for dental procedure. Patient reports that she had an episode of bleeding while doing dental work; therefore, it is recommended clearance before procedure. Patient is currently taking aspirin 81 mg PO daily. Patient denies CP, AVILA, fevers, chills, SOB, abdominal pain, nausea, vomiting, diarrhea, constipation. Shakila Genao [facility] 06/01/2021 14:04:13 OBGyn Episode No OBEpisode recorded.
== END 2025-04-25 23:59 | disposition home or self-care (01) ==
LOC: LAB.DROPOF 04-26 14:50
PROVIDERS: PCP Nurse Practitioner Family; Visit Provider Nurse Practitioner Family
DX: Z20.822 Contact with and (suspected) exposure to COVID-19 (principal)
CPT/HCPCS: 87631

== ENCOUNTER 2025-05-06 06:26 | Day surgery (SDC) | payer OTHER, SELFPAY ==
[2025-05-03 09:46] VITALS: BMI 28.1
[2025-05-06] MEDS: LACTATED RINGERS 1000ML 1,000 ML 50 ML IV (06:53)
[2025-05-06 06:59] VITALS: BP 134/71; PULSE 80; RESP 18; TEMP 36.4; O2SAT 97; BMI 28.1
--- NOTE | 2025-05-06 07:52 | EXP.HP ---
History of Present Illness *Admission Date: 05/22/25 *Reason for visit:: Personal history of adenomatous colon polyps *History of present illness: Mrs. Reyes is a 55-year-old female who is here for surveillance colonoscopy secondary to hepatic flexure polyp/adenoma. The examination is deemed medically necessary for surveillance colonoscopy. The patient has been seen, interviewed and examined prior to the procedure by both myself and the anesthesia provider. [facility] Disclaimer: The information contained in this section may have been updated after the patient was seen, as this information can be updated by other users. Medical History Sleep apnea Low back pain radiating to left leg Sinusitis Abdominal pain, epigastric Degenerative disc disease, lumbar Low back pain Greater trochanteric bursitis of both hips Bilateral hip pain BMI 31.0-31.9,adult Chronic constipation Lipoma of left forearm Bloating (~08/21/24) Early satiety Nausea URI (upper respiratory infection) Acute sinusitis SNHL (sensorineural hearing loss) mild precipitous SNHL, bilateral per Audiometric Otalgia, left ear Abdominal bloating Ear pain intermittent, bilateral Tinnitus Vertigo Hearing loss of both ears Asthma Abnormal screening computed tomography (CT) of chest Dyspnea on exertion Allergic rhinitis Tobacco abuse Advised to consider smoking cessation Nocturnal hypoxemia Nocturnal hypoxemia out of proportion for the degree of mild JESS observed. JESS (obstructive sleep apnea) Hx of LEEP (loop electrosurgical excision procedure) of cervix complicating Nicotine dependence Atrophy of vagina Heterozygous factor V Leiden mutation Vasomotor symptoms due to menopause Fibrocystic disease of both breasts History of PCOS Bipolar 1 disorder Insomnia Anxiety Migraines Surgical History Status post nasal septoplasty History of colonoscopy History of hysterectomy, supracervical abdominal (subtotal) Hx of tonsillectomy H/O breast biopsy Family History Unknown Factor V Leiden mutation Pulmonary embolism Social History Smoking Status: Current every day smoker tobacco type: cigarettes packs per day: 1 alcohol intake: never substance use type: denies use current occupational status: unemployed Travel in the last 8 weeks?: None caffeine: No Have you lived/traveled outside [place] in past 30 days?: No Contact w/someone who lives/traveled outside US past 30 days?: No Exposure to someone with infectious disease in past 14 days?: No Do you have a fever (greater than 100.4 F or 38 C)?: No Have you tested positive for COVID-19?: No Exposed to someone with COVID-19 in past 14 days?: No Do you have a sore throat?: No Do you have a cough?: No Do you have any weakness?: No Do you have any diarrhea?: No Are you experiencing any unusual bleeding?: No Do you have any muscle aches/pain?: No Do you have any abdominal pain?: No Are you experiencing loss of taste or smell?: No Other Medical History Have you received the Flu Vaccine for this season: No Have you received the Pneumonia Vaccine: No Review of Systems Review of Systems Review of systems (narrative): Negative *Cardiovascular Comments: Negative *Gastrointestinal Comments: Negative *Genitourinary Comments: Negative *Musculoskeletal Comments: Negative *Neurologic Comments: Negative Meds Home Medications and Allergies Home Medications ?Medication ?Instructions ?Recorded ?Confirmed ?Type lamotrigine 150 mg tablet 300 mg PO DAILY SEIZURES 08/04/23 05/03/25 History (Lamictal) lorazepam 2 mg tablet 2 mg PO DAILY Anxiety 03/14/24 05/03/25 History multivitamin (One Daily 1 tab PO DAILY 03/14/24 05/03/25 History Multivitamin tablet) rimegepant 75 mg disintegrating 75 mg PO Q OTHER DAY PRN MIGRAINES 03/14/24 05/03/25 History tablet (Nurtec ODT) prazosin 2 mg capsule 2 mg PO DAILY 07/18/24 05/03/25 History bupropion HCl 200 mg tablet,12 hr 200 mg PO DAILY 08/02/24 05/03/25 History sustained-release (Wellbutrin SR) citalopram 40 mg tablet (Celexa) 40 mg PO DAILY 08/02/24 05/03/25 History buspirone 10 mg tablet 10 mg PO BID Functional dyspepsia 08/23/24 05/03/25 Rx #60 tabs atorvastatin 10 mg tablet (Lipitor) 10 mg PO QHS #90 tabs 01/24/25 05/03/25 Rx gabapentin 300 mg capsule 300 mg PO HS Hot flashes #30 caps 02/20/25 04/25/25 Rx sodium,potassium,mag sulfates 17.5 See Rx Instructions PO .COMPLEX 05/02/25 Rx gram-3.13 gram-1.6 gram oral soln #354 mL (Suprep Bowel Prep Kit) peg 3350-electrolytes 236 240 ml PO Q10M colonscopy #4,000 mL 05/03/25 Rx gram-22.74 gram-6.74 gram-5.86 gram solution (Golytely) New Prescriptions to Start Prescriptions: Allergies Allergy/AdvReac Type Severity Reaction Status Date / Time levofloxacin ([facility]) AdvReac Unknown Blurry Verified 05/06/25 06:58 Vision Exam Data for Last 24 hours Vital signs and Labs for Last 24 Hours: Temp Pulse Resp BP Pulse Ox O2 Del Method 97.6 F 80 18 134/71 97 Room Air 05/06/25 06:59 05/06/25 06:59 05/06/25 06:59 05/06/25 06:59 05/06/25 06:59 05/06/25 06:59 I & O for Last 24 hours: Intake & Output 05/03/25 05/04/25 05/05/25 05/06/25 23:59 23:59 23:59 23:59 Weight 180 lb 180 lb *Routine HEENT Exam Head: Present normocephalic Eye: Present EOMI and PERRL ENT: Present mucous membranes moist *Routine Neck Exam Neck: Present supple *Routine Respiratory Exam Respiratory: Present CTA bilaterally *Routine Cardiovascular Exam Cardiovascular: Present RRR *Routine Abdominal Exam Abdominal: Present soft and normoactive bowel sounds; Absent tenderness *Routine Rectal Exam Rectal:: deferred *Routine Genitalia Exam Genitalia:: deferred *Routine Extremities Exam Extremities: Absent cyanosis, clubbing or edema *Routine Skin Exam Skin: Present warm; Absent rash *Routine Neurological Exam Neurological: Present alert and oriented X3 Assessment and Plan *Assessment and plan (1) Personal history of adenomatous and serrated colon polyps: Status: Acute Category: Medical Code(s): Z86.0101 - Personal history of adenomatous and serrated colon polyps Plan A/P: 1. Personal history of adenomatous colon polyps is the preprocedural diagnosis. The patient will be anesthetized/sedated using MAC sedation. The patient has been seen and examined. Cardiac and lung assessment prior to the examination is stable. Proceed with planned surveillance colonoscopy.
--- NOTE | 2025-05-06 07:57 | P.PCN_ITS ---
[facility] Procedure Note Date: 05/06/25 Time: 08:20 Procedure Note:: Colonoscopy Procedure Report: Colonoscopy with cold snare polypectomy Endoscopist: Andres James II, MD Referring physician: DONITA Chavis Date of Procedure: May 06, 2025 Equipment: Olympus 190 variable stiffness pediatric colonoscope Sedation: MAC sedation Indication: Mrs. Reyes is a 55-year-old female who is here for follow-up screening/surveillance colonoscopy. She did have a colonoscopy in March 2024 (Sagar Durham M.D.) and had poor bowel preparation with tortuosity, poor relaxation, spasticity and hepatic flexure polyp. Biopsies of the polyp were sessile serrated adenoma. The patient has had some chronic constipation and does not take MiraLAX plus Citrucel routinely. She has used senna twice daily recently. She does have a history of dyspepsia and has improved some with the buspirone. She did have an EGD with ct in September 2020 for. She still gets some left upper and left lower quadrant abdominal discomfort. She reports no rectal bleeding, weight loss or change in bowel habits. Her paternal uncle had colon cancer in his early 70s. Procedure: Prior to the procedure, a history and physical exam was performed, and patient's medications and allergies were reviewed. The risks, benefits and alternatives of the sedation and procedure were discussed with the patient. All questions were answered and informed consent was obtained. The patient was brought to the procedure room. Patient identification and proposed procedure were verified by the physician and the nurse. The patient was placed in a left lateral decubitus position and the scope was passed under direct vision. Throughout the procedure, the patient's blood pressure, pulse, and oxygen saturations were monitored continuously. The colonoscopy was accomplished without difficulty. The patient tolerated the procedure well. Findings: On digital rectal examination there was normal rectal tone. There were no external hemorrhoids. The colonoscope was introduced through the anal canal to the rectum and advanced to the cecum. The ileocecal valve and appendiceal orifice were identified. The scope was advanced a short distance into the ileum which appeared grossly normal. The scope was then withdrawn into the colon. There was a single polyp (cecum x 1 (4 mm)) which was removed via cold snare polypectomy. The remaining cecum, ascending, transverse, descending, sigmoid and rectum were grossly normal. There was mild melanosis coli. There were no other mucosal abnormalities identified. Upon retroflexion within the rectum there were grade 1-2 internal hemorrhoids. The preparation was excellent throughout with [place] Preparation Score of 9. The cecal time was 12 minutes. Impression: 1. Diminutive cecal polyp (4 mm) 2. Mild melanosis coli 3. Grade 1-2 internal hemorrhoids Plan: I will follow-up the polyp histology and recommend repeat surveillance colonoscopy again in 5 to 7 years. The patient still has some functional abdominal pain/splenic flexure syndrome. I would continue the buspirone and add Motegrity or Linzess.
--- NOTE | 2025-05-06 07:58 | P.PNANES_ITS ---
[facility] Disclaimer: The information contained in this section may have been updated after the patient was seen, as this information can be updated by other users. Medical History Sleep apnea Low back pain radiating to left leg Sinusitis Abdominal pain, epigastric Degenerative disc disease, lumbar Low back pain Greater trochanteric bursitis of both hips Bilateral hip pain BMI 31.0-31.9,adult Chronic constipation Lipoma of left forearm Bloating (~08/21/24) Early satiety Nausea URI (upper respiratory infection) Acute sinusitis SNHL (sensorineural hearing loss) mild precipitous SNHL, bilateral per Audiometric Otalgia, left ear Abdominal bloating Ear pain intermittent, bilateral Tinnitus Vertigo Hearing loss of both ears Asthma Abnormal screening computed tomography (CT) of chest Dyspnea on exertion Allergic rhinitis Tobacco abuse Advised to consider smoking cessation Nocturnal hypoxemia Nocturnal hypoxemia out of proportion for the degree of mild JESS observed. JESS (obstructive sleep apnea) Hx of LEEP (loop electrosurgical excision procedure) of cervix complicating Nicotine dependence Atrophy of vagina Heterozygous factor V Leiden mutation Vasomotor symptoms due to menopause Fibrocystic disease of both breasts History of PCOS Bipolar 1 disorder Insomnia Anxiety Migraines Surgical History Status post nasal septoplasty History of colonoscopy History of hysterectomy, supracervical abdominal (subtotal) Hx of tonsillectomy H/O breast biopsy Family History Unknown Factor V Leiden mutation Pulmonary embolism Social History Smoking Status: Current every day smoker tobacco type: cigarettes packs per day: 1 alcohol intake: never substance use type: denies use current occupational status: unemployed Travel in the last 8 weeks?: None caffeine: No Have you lived/traveled outside [place] in past 30 days?: No Contact w/someone who lives/traveled outside US past 30 days?: No Exposure to someone with infectious disease in past 14 days?: No Do you have a fever (greater than 100.4 F or 38 C)?: No Have you tested positive for COVID-19?: No Exposed to someone with COVID-19 in past 14 days?: No Do you have a sore throat?: No Do you have a cough?: No Do you have any weakness?: No Do you have any diarrhea?: No Are you experiencing any unusual bleeding?: No Do you have any muscle aches/pain?: No Do you have any abdominal pain?: No Are you experiencing loss of taste or smell?: No [facility] Anesthesia Checklist Patient Identification Patient Identification: Verbal (Name & ) Structural Data Admitted From: Home Planned Operative Procedure/s: colonoscopy NPO Status Verified Time NPO: 00:00 Additional verifications Anesthesia Reactions: No Hx Blood Transfusions: No Blood Transfusion Reaction: No Airway Assessment Mallampati Score:: Class II C-Spine Mobility Assessed: Yes TMJ Mobility Assessed: Yes Dentition: Good Dentition Neurological Assessment Level of Consciousness: Awake, Alert and Appropriate Anesthesia Plan Anesthesia Risk discussed: Yes Anesthesia Plan: Verified ASA Class: II Anesthesia Type: MAC
[2025-05-06 08:23] VITALS: BP 131/65; PULSE 86; RESP 16; TEMP 36.2; O2SAT 97
[2025-05-06 08:33] VITALS: BP 133/70; PULSE 79; RESP 16; O2SAT 96
[2025-05-06 08:43] VITALS: BP 134/76; PULSE 80; RESP 18; O2SAT 97
[2025-05-06 08:53] VITALS: BP 127/76; PULSE 83; RESP 18; O2SAT 100
== END 2025-05-06 09:00 | disposition home or self-care (01) ==
PROVIDERS: PCP Nurse Practitioner Family; Visit Provider Internal Medicine Gastroenterology
PROC: 0DJD8ZZ Inspection of Lower Intestinal Tract, Via Natural or Artificial Opening Endoscopic (ICD-10-PCS; CPT 45378; principal; 2025-05-06 08:00)
DX: Z12.11 Encounter for screening for malignant neoplasm of colon (principal); Z86.0101 Personal history of adenomatous and serrated colon polyps; D12.0 Benign neoplasm of cecum; K63.89 Other specified diseases of intestine; K64.1 Second degree hemorrhoids; K59.09 Other constipation; K59.89 Other specified functional intestinal disorders; G47.33 Obstructive sleep apnea (adult) (pediatric); D68.51 Activated protein C resistance; F31.9 Bipolar disorder, unspecified; F41.9 Anxiety disorder, unspecified; G43.909 Migraine, unspecified, not intractable, without status migrainosus; H90.3 Sensorineural hearing loss, bilateral; E28.2 Polycystic ovarian syndrome; F17.210 Nicotine dependence, cigarettes, uncomplicated; Z56.0 Unemployment, unspecified; Z79.899 Other long term (current) drug therapy; Z88.1 Allergy status to other antibiotic agents
CPT/HCPCS: 45385; J2003; J2704; J7120